=== PATIENT | female | born 1940 | race Caucasian/White ===

== ENCOUNTER → 2016-10-07 | Outpatient (CLI) | payer OTHER ==
[~2016-10-07] MED LIST: ASPEC81 PO; ATV5 PO; LEVO75TA PO; ONDA4TAB7 SL; SIMV20TA5 OR
--- NOTE | 2016-10-07 12:41 | MAMMOGRAPHY REPORT ---
BILATERAL DIGITAL SCREENING MAMMOGRAM WITH CAD: 10/07/2016 TECHNIQUE: Current study was also evaluated with a Computer Aided Detection (CAD) system. Bilatera l CC and MLO views were obtained. COMPARISON: Comparison is made to exams dated: 10/04/2015 mammogram, 10/03/2014 mammogram, 09/30/2013 ma mmogram, 09/27/2011 mammogram, and 09/28/2012 mammogram - [facility]. BREAST COMPOSITION: The tissue of both breasts is almost entirely fatty. FINDINGS: No suspicious masses, calcifications, or areas of architectural distortion are noted in e ither breast. There has been no significant interval change compared to prior exams. Asymmetry in t he left lateral anterior breast on the cc view is stable dating back to at least the 2007 exam, and considered benign given long-term stability. IMPRESSION: ACR BI-RADS CATEGORY 2: BENIGN There is no mammographic evidence of malignancy. A 1 year screening mammogram is recommended. The p atient will receive written notification of the results. Approximately 10% of breast cancers are not detected with mammography. A negative mammographic repor t should not delay biopsy if a clinically suggestive mass is present. Dolly Meraz M.D. ah/:10/07/2016 12:14:57 Delivery Analyst: Elsa ROUSE(R)(M), [facility] letter sent: Normal 1/2 BI-RADS Code: ACR BI-RADS Category 2: Benign
== END | disposition home or self-care (01) ==
LOC: C.MAMM 09:03
PROVIDERS: ATTEND Family Medicine
DX: Z12.31 Encounter for screening mammogram for malignant neoplasm of breast (principal)

== ENCOUNTER → 2017-10-08 | Outpatient (CLI) | payer OTHER ==
--- NOTE | 2017-10-08 15:22 | MAMMOGRAPHY REPORT ---
BILATERAL DIGITAL SCREENING MAMMOGRAM TOMOSYNTHESIS WITH CAD: 10/08/2017 CLINICAL HISTORY: Routine screening. Patient has no complaints. TECHNIQUE: Breast tomosynthesis in addition to standard 2D mammography was performed. Current study was also evaluated with a Computer Aided Detection (CAD) system. COMPARISON: Comparison is made to exams dated: 10/07/2016 mammogram, 10/04/2015 mammogram, 10/11/2014 u ltrasound, 10/11/2014 mammogram, 10/03/2014 mammogram, and 09/30/2013 mammogram - [facility]. BREAST COMPOSITION: The tissue of both breasts is almost entirely fatty. FINDINGS: No suspicious masses, calcifications, or areas of architectural distortion are noted in ei ther breast. There has been no significant interval change compared to prior exams. IMPRESSION: ACR BI-RADS CATEGORY 1: NEGATIVE There is no mammographic evidence of malignancy. A 1 year screening mammogram is recommended. The pa tient will receive written notification of the results. Approximately 10% of breast cancers are not detected with mammography. A negative mammographic report should not delay biopsy if a clinically suggestive mass is present. Dolly Meraz M.D. /:10/08/2017 09:13:02 Service Architect: Margarita ROUSE(Urvashi)(Faustino), [facility] letter sent: Normal 1/2 BI-RADS Code: ACR BI-RADS Category 1: Negative
== END | disposition home or self-care (01) ==
LOC: C.MAMM 08:53
PROVIDERS: ATTEND Family Medicine
DX: Z12.31 Encounter for screening mammogram for malignant neoplasm of breast (principal)

== ENCOUNTER 2018-03-17 10:21 | Inpatient (IN) | payer OTHER ==
[2018-02-12 15:33] VITALS: BMI 28.0
--- NOTE | 2018-02-17 09:03 | PAT Medication Instructions ---
Service Date Feb 17, 2018. Current Home Medication List Aspirin (Aspirin Ec), 81 MG PO QAM Cholecalciferol (Vitamin D3), 1 TAB PO QAM Fluticasone Propionate (Nasal) (Flonase Allergy Relief), 2 SPRAYS INTNAS PRN Levothyroxine Sodium (Levothyroxine Sodium), 1 TAB PO QAM Ondansetron Hcl (Zofran), 4 MG SL PRN PRN for Nausea Ranitidine (Zantac), 150 MG PO BID Simvastatin (Zocor), 20 MG PO HS [Hair Skin Nails], 1 TAB PO QAM Medication Instructions For Your Scheduled Surgery - Hold the following medications the morning of surgery: Cholecalciferol (Vitamin D3), 1 TAB PO QAM [Hair Skin Nails], 1 TAB PO QAM - Take the following medications the morning of surgery with a sip of water: Aspirin (Aspirin Ec), 81 MG PO QAM Fluticasone Propionate (Nasal) (Flonase Allergy Relief), 2 SPRAYS INTNAS PRN ( if needed) Levothyroxine Sodium (Levothyroxine Sodium), 1 TAB PO QAM Ondansetron Hcl (Zofran), 4 MG SL PRN PRN for Nausea (if needed) Ranitidine (Zantac), 150 MG PO BID - Take the following medications as scheduled the night before surgery: Fluticasone Propionate (Nasal) (Flonase Allergy Relief), 2 SPRAYS INTNAS PRN ( if needed) Ondansetron Hcl (Zofran), 4 MG SL PRN PRN for Nausea (if needed) Ranitidine (Zantac), 150 MG PO BID Simvastatin (Zocor), 20 MG PO HS If you have any questions please call us at [phone] or [phone] or [phone]
--- NOTE | 2018-02-17 09:58 | DIAGNOSTIC IMAGING REPORT ---
CHEST 2 VIEWS ROUTINE CLINICAL HISTORY: Preoperative evaluation. COMPARISON STUDY: No previous studies for comparison. FINDINGS: Lung volumes are normal. Note is made of moderate S-shaped scoliosis of the thoracolumbar spine. There are cholecystectomy clips. Mild cardiomegaly is noted without evidence for pulmonary edema. There is no consolidation to suggest pneumonia. IMPRESSION: No acute cardiopulmonary findings. Electronically signed by: Guilherme Burkett M.D. 02/17/2018 9:57 AM Dictated Date/Time: 02/17/2018 9:56 AM
[2018-02-17 10:21] LABS: BASO % 0.4 %; BASO ABS # 0.03 K/uL (0-0.2); EOS % 0.4 %; EOS ABS # 0.03 K/uL (0-0.5); HEMATOCRIT 41.3 % (37-47); HEMOGLOBIN 14.1 g/dL (12.0-16.0); IG# 0.01 K/uL (0.00-0.02); LYMPH % 20.5 %; LYMPH ABS # 1.44 K/uL (1.2-3.4); MEAN CELL VOLUME 86.4 fL (80-100); MEAN CORPUSCULAR HEMOGLOBIN 29.5 pg (25-34); MEAN CORPUSCULAR HGB CONC 34.1 g/dl (32-36); MEAN PLATELET VOLUME 8.7 fL (7.4-10.4); MONO % 6.1 %; MONO ABS # 0.43 K/uL (0.11-0.59); NEUT % 72.5 %; NEUT ABS # 5.08 K/uL (1.4-6.5); PLATELET COUNT 189 K/uL (130-400); RED CELL DISTRIBUTION WIDTH CV 14.2 % (11.5-14.5); RED CELL DISTRIBUTION WIDTH SD 44.4 fL (36.4-46.3); WHITE BLOOD COUNT 7.02 K/uL (4.8-10.8)
[2018-02-17 10:48] LABS: ALBUMIN 3.8 gm/dl (3.4-5.0); CALCIUM 8.6 mg/dl (8.5-10.1); CREATININE 0.73 mg/dl (0.60-1.20); POTASSIUM 5.1 mmol/L (3.5-5.1); TOTAL PROTEIN 6.8 gm/dl (6.4-8.2)
--- NOTE | 2018-03-03 11:44 | HISTORY & PHYSICAL EXAMINATION ---
DATE OF ADMISSION: 03/17/2018 CHIEF COMPLAINT: Left knee pain. HISTORY OF PRESENT ILLNESS: A 77-year-old white female who presents for surgical treatment of her left knee. She has a several year history of increasing left knee pain that has gotten significantly worse since this past winter. Pain is mostly on the medial side and increased with weightbearing. She does have a history of knee arthroscopy in the past. We did inject her knee which gave her about 3 days of relief and that is about it. She continues to be debilitated by this medial and anterior knee pain. She takes sulindac, which helps minimally. She would like to proceed with left knee replacement. PAST MEDICAL HISTORY: Significant for: 1. Hypothyroidism. 2. Elevated cholesterol. PREVIOUS SURGERIES: Include: 1. Cholecystectomy. 2. Hysterectomy. 3. Bunion repair. 4. Tonsillectomy. 5. Knee arthroscopy. ALLERGIES: UNSPECIFIED ANTIBIOTIC, WHICH CAUSED A RASH. No respiratory problems. Denies any penicillin allergy. MEDICATIONS: 1. Simvastatin 20 mg. 2. Levothyroxine 50 mcg a day. 3. Ondansetron 4 mg p.r.n. 4. Ranitidine 150 mg twice a day. 5. Fluticasone nasal spray. 6. Vitamin D3. 7. Multivitamin. 8. Aspirin. 9. Sulindac, which she says she quit a while ago. SOCIAL HISTORY: This is a 77-year-old female. She is . Rare alcohol intake. No tobacco or drug use. FAMILY HISTORY: Significant for diabetes and colon cancer. REVIEW OF SYSTEMS: Significant for hypothyroidism. Denies any chest pain or shortness of breath. No history of DVT or PE. No known bleeding problems. PHYSICAL EXAMINATION: GENERAL: Reveals a healthy pleasant elderly female. Looks to be in good health. HEENT: Benign. NECK: Supple. No lymphadenopathy. LUNGS: Clear to auscultation. HEART: Has a regular rate and rhythm. ABDOMEN: Soft, nontender, nondistended. EXTREMITIES: Grossly neurovascularly intact except as follows: Examination of the left knee reveals the patient walks with a slight bit of a limp. She has varus alignment to her knee. Some bony hypertrophy medially. Small knee effusion. Range of motion 5-125. There is no clinical instability. She is neurologically intact. No pain with hip motion. X-RAYS: X-rays of the left knee reviewed. She has advanced medial compartment arthritis. She has complete loss of her medial joint space. She has osteophytes of medial femoral condyle and medial tibial plateau. She does have patellofemoral disease as well. ASSESSMENT: A 77-year-old white female with advanced left knee degenerative joint disease after history of knee arthroscopy in the past. She has failed conservative treatment and would like to have her left knee replaced. PLAN: We will take her to the operating room and do a left knee replacement. The risks and benefits of this procedure explained to the patient including but not limited to DVT, PE, , infection, neurological injury, vascular injury, bleeding problem, pain, limited range of motion, stiffness, failure to relieve symptoms, incomplete relief of symptoms, need for further surgery in the future, fracture, leg length inequality, nerve palsy, etc. The patient understands and desires to proceed. Informed consent was obtained. She has already stopped her sulindac. She is hoping to be discharged to home with some [facility] in her 's assistance.
[2018-03-17] VITALS (9 sets, daily range): BP systolic 148–202; BP diastolic 66–107; PULSE 58–102; TEMP 36.2–36.8; O2SAT 96–100; Ht 167.6 cm; Wt 27.8 kg
[~2018-03-17] VITALS: Ht 167.6 cm; Wt 27.8 kg
[~2018-03-17 10:21] MED LIST changes: +ACETAMINOPHEN 500 MG TAB PO SCH; -ASPEC81 PO; +ASPI81TA28 PO; -ATV5 PO; +BUPIVACAINE 0.5 % 5 MG/1 ML PF 10ML VIAL ONE; +BUPIVACAINE LIPOSOME 266 MG, BUPIVACAINE/EPINEPHRINE INJ 50 ML, SODIUM CHLORIDE 0.9% PF... INFIL SCH; +CEFAZOLIN 2000MG IV PUSH 15 ML IV SCH; +CHOL1000 PO; +FAMOTIDINE 20 MG TAB PO SCH; +FLUT0.15 INTNAS; +GABAPENTIN 300 MG CAP PO SCH; +HAIR SKIN NAILS PO; +LACTATED RINGER'S 1000ML 1,000 ML IV SCH; +LACTATED RINGER'S 500 ML IV SCH; +LEVO50TA6 PO; -LEVO75TA PO; +METOCLOPRAMIDE HCL 10 MG TAB PO SCH; +ONDA4TAB46 SL; -ONDA4TAB7 SL; +RANI150T85 PO; +ROPIVACAINE 0.5% 5 MG/ML 30 ML VIAL ONE; -SIMV20TA5 OR; +SIMV20TA5 PO; +[UNRECOGNIZED DRUG - REMARK] SCH
--- NOTE | 2018-03-17 11:09 | History & Physical Bridge Note ---
H&P Re-Evaluation Bridge Note: I have examined the patient, reviewed the History & Physical and in the interval since the performance of the History & Physical I have noted the following changes of clinical significance: No changes noted
[2018-03-17] MEDS ORDERED: ATROPINE SULFATE 0.1 MG/ML 5ML SYR IV PRN (11:15)
[2018-03-17] MEDS ORDERED: PHENYLEPHRINE 100MCG/ML 5ML SYR IV PRN (11:15)
[2018-03-17] MEDS ORDERED: EpHEDrine SULFATE INJ 50 MG/ML AMP IV PRN (11:15)
[2018-03-17] MEDS ORDERED: KETOROLAC TROMETHAMINE 30 MG/ML VIAL IV. PRN (11:15)
[2018-03-17] MEDS ORDERED: HYDROmorphone INJ 2 MG/ML SYR/VIAL IV PRN (11:15)
[2018-03-17] MEDS ORDERED: ONDANSETRON INJ 2 MG/ML 2 ML VIAL IV PRN ×2 (11:15→15:00)
[2018-03-17] MEDS ORDERED: CEFAZOLIN SOD 2000MG/15 ML IV PUSH ONE (11:30)
[2018-03-17] MEDS ORDERED: BUPIVACAINE LIPOSOME 1/3% 266 MG/20 ML VIAL ONE (12:14)
[2018-03-17] MEDS ORDERED: SODIUM CHLORIDE 0.9% PF 50 ML VIAL ONE (12:14)
[2018-03-17] MEDS ORDERED: EpINEphrine INJ 1MG/ML AMP 1 MG/ML AMP ONE (12:14)
[2018-03-17] MEDS ORDERED: BUPIVACAINE 0.25% 30 ML VIAL ONE (12:14)
[2018-03-17] MEDS ORDERED: MIDAZOLAM HCL 1 MG/ML 2ML VIAL ONE (12:19)
[2018-03-17] MEDS ORDERED: LIDOCAINE HCL 2% 2 ML VIAL (20MG/ML) ONE (13:11)
[2018-03-17] MEDS ORDERED: PROPOFOL IV EMULSION 10 MG/ML 20 ML VIAL ONE ×2 (13:11→14:01)
[2018-03-17] MEDS ORDERED: NURSING VERBAL MED ORDER ONE (13:15)
[2018-03-17] MEDS ORDERED: TRANEXAMIC ACID INJ 1,000 MG x 1 Bag Intra-Op IV SCH ×2 (14:00)
--- NOTE | 2018-03-17 14:51 | [facility] Post Operative Brief Note ---
Immediate Operative Summary Operative Date Mar 17, 2018. Pre-Operative Diagnosis Advanced left knee degenerative joint disease Post-Operative Diagnosis Same Procedure(s) Performed Left Total Knee Arthroplasty Surgeon Dr. Link Carrizales Qc Analyst Surgeon(s) Evin Smallwood PA-C Estimated Blood Loss 50mL Findings Consistent with Post-Op Diagnosis Fluids (cc crystalloids) 1000 cc Specimens A. Left Knee Bone and Tissue Drains None Anesthesia Type MAC Spinal Regional Complication(s) none Disposition Accompanied Pt To Recover: no Disposition: Recovery Room / PACU Overlapping Procedure I was present for: the critical portions of procedure. I was immediately available: during the entire case
[2018-03-17] MEDS ORDERED: BISACODYL 10 MG SUPP PR PRN (15:00)
[2018-03-17] MEDS ORDERED: HYDROmorphone INJ 0.5 MG/0.5 ML SYR IV PRN (15:00)
[2018-03-17] MEDS ORDERED: MAGNESIUM HYDROXIDE SUSP 30 ML UDC PO PRN (15:00)
[2018-03-17] MEDS ORDERED: TRAMADOL HCL 50 MG TAB PO PRN (15:00)
[2018-03-17] MEDS ORDERED: METOCLOPRAMIDE HCL INJ 5 MG/ML 2 ML VIAL IV PRN (15:00)
[2018-03-17] MEDS ORDERED: ONDANSETRON 4 MG TAB PO PRN (15:00)
[2018-03-17] MEDS ORDERED: ALUMINUM/MAGNESIUM/SIMETH (MAALOX MAX) 30 ML UDC PO PRN (15:00)
[2018-03-17] MEDS ORDERED: CEFAZOLIN IV 1,000 MG in DEXTROSE 5% 50ML 50 ML IV SCH (15:00)
--- NOTE | 2018-03-17 15:17 | DIAGNOSTIC IMAGING REPORT ---
L KNEE 1 OR 2 VIEWS ROUTINE CLINICAL HISTORY: AP/LATERAL IN PACU LEFT KNEE trauma placement COMPARISON: None. DISCUSSION: Total left knee arthroplasty. Good contact between prosthetic and underlying bone. Surgical drains are in position. Expected postoperative soft tissue change. IMPRESSION: Anatomic alignment posttotal left knee arthroplasty. The above report was generated using voice recognition software. It may contain grammatical, syntax or spelling errors. Electronically signed by: Dc Romero M.D. 03/17/2018 3:15 PM Dictated Date/Time: 03/17/2018 3:15 PM
--- NOTE | 2018-03-17 15:20 | Anesthesiology Progress Note ---
Anesthesia Post Op Note Date & Time Mar 17, 2018 at 15:20 Vital Signs Pain Intensity: 0 Vital Signs Past 12 Hours Date Time Temp Pulse Resp B/P (MAP) Pulse Ox O2 Delivery O2 Flow Rate FiO2 03/17/18 15:11 152/67 03/17/18 15:09 59 18 100 03/17/18 15:09 61 18 03/17/18 15:06 135/78 03/17/18 15:04 68 19 03/17/18 15:04 73 19 100 03/17/18 15:02 141/71 03/17/18 15:00 126/69 03/17/18 14:59 67 19 100 03/17/18 14:59 36.2 65 16 126/69 (98) 100 Oxymask 10 03/17/18 14:59 69 19 03/17/18 11:22 36.8 102 20 202/107 96 Room Air Notes Mental Status: alert / awake / arousable, participated in evaluation Pt Amnestic to Procedure: Yes Nausea / Vomiting: adequately controlled Pain: adequately controlled Airway Patency, RR, SpO2: stable & adequate BP & HR: stable & adequate Hydration State: stable & adequate Anesthetic Complications: no major complications apparent
[2018-03-17] MEDS: D5W AND 1/2NSS + 20MEQ KCL 1,000 ML IV SCH (17:25)
[2018-03-17] MEDS: FERROUS GLUCONATE 324 MG TAB PO SCH (17:26)
[2018-03-17] MEDS: KETOROLAC TROMETHAMINE 15 MG/ML VIAL IV. SCH ×2 (17:27→23:41)
--- NOTE | 2018-03-17 19:49 | OPERATIVE REPORT ---
DATE OF OPERATION: 03/17/2018 SURGEON: Link Carrizales MD SPEECH/LANGUAGE THERAPIST: GORDO Myles PREOPERATIVE DIAGNOSIS: Left knee degenerative joint disease. POSTOPERATIVE DIAGNOSIS: Left knee degenerative joint disease. PROCEDURE PERFORMED: Left cemented posterior stabilized total knee arthroplasty. COMPLICATIONS: None. ESTIMATED BLOOD LOSS: 50 mL FLUID REPLACEMENT: 1000 mL crystalloid fluid replacement. TOURNIQUET TIME: 65 minutes at 300 mmHg. ANESTHESIA: Spinal with adductor canal block. DRAINS: None. SPECIMENS: Left knee sent for pathology. OPERATIVE INDICATIONS: Patient is a 77-year-old white female who has had a several-year history of increasing left knee pain and discomfort, unresponsive to conservative treatment. X-rays revealed advanced DJD. She elected to proceed with operative treatment. OPERATIVE FINDINGS: Operative findings were advanced left knee DJD. She had grade 4 [id number] disease of the medial and patellofemoral compartments. She has some focal grade 4 changes laterally. She had a moderate sized joint effusion. She had a fixed varus deformity to her knee. OPERATIVE IMPLANTS: Operative implants consisted of: 1. Biomet Vanguard size 67.5 left posterior stabilized femoral component. 2. Biomet size 67 tibial tray. 3. A 10 mm posterior stabilized polyethylene insert. 4. A 31 x 8 all poly patella. OPERATIVE PROCEDURE: Patient taken to the operating room, identified, and placed on the operating table in supine position. All contact areas were appropriately padded. IV antibiotics were provided by anesthesia team. A spinal anesthetic and adductor canal block provided in the holding area. Joseph catheter was placed in sterile fashion. Left thigh tourniquet was then placed and the left lower extremity was then prepped and draped in usual sterile fashion. Left leg was elevated and exsanguinated with an Esmarch and tourniquet was placed at 300 mmHg. An anterior approach to the left knee was then performed through a longitudinal incision centered over the patella. Sharp dissection was carried through the subcutaneous tissues down to the level of the extensor mechanism. A medial parapatellar arthrotomy incision was made. Some subperiosteal dissection was carried out medially. The fat pad resected from beneath the patellar tendon. The lateral patellofemoral ligament was released. Patella was everted, and the knee was flexed. The osteophytes were taken off the distal femur. The ACL and PCL were then released from the distal femur and the tibia subluxated anteriorly. The external tibial alignment jig was then placed in the anterior face of the tibia and adjusted 14 mm medially. Proximal tibial cut was made to remove about 2 mm of bone, bone from the most deficient aspect of the medial tibial plateau. Some osteophytes were taken off medial and posteromedially. Tibia size was size 67. Attention was then drawn to the femur. The distal femur was entered with a sharp drill. Intramedullary canal was suctioned. A left 5-degree valgus cutting guide was placed. Distal femoral cutting block was pinned in place. Distal femoral cut was made to take an additional 3 mm of bone off the distal femur. The femur was then sized to a size 67-1/2. The AP cutting block was pinned parallel to the epicondylar axis, which was 4 degrees of external rotation. The anterior cut, anterior chamfer cut, posterior cut, posterior chamfer cuts were made. Box cutting guide was placed and adjusted slight lateral and box cut was made. The knee was flexed. The remnants of the medial and lateral menisci were excised. The osteophytes were taken off the posterior aspect of the femur. Trial femoral component was placed. Tibial tray was pinned in maximum external rotation and the drill and stem punch were used to create defect in proximal tibia for the tibial tray. The knee was then trialed and a 10 mm insert fit most appropriately. Attention was then drawn to patella. Patella was cleaned of all soft tissues. Patella thickness measured 18 mm, cut down to 12. It was sized to a size 31 patella. Lug holes were drilled for a 31 patella. Lateral osteophytes removed. Patella button was placed. Knee was taken through range of motion and patella tracked nicely with no thumbs test. Attention was then drawn toward placing the permanent components. All trial components were removed. Bone plug was placed in the distal femur to limit blood loss. A double batch of Palacos G cement was mixed. A left size 67.5 posterior stabilized femoral component, size 67 tibial tray, 10 mm posterior stabilized polyethylene insert, and a 31 x 8 all poly patella then cemented in place. Knee was brought out in full extension until the cement hardened. A final cement check was then performed. Pericapsular tissues were injected with a total of 100 mL combination of 20 mL of Exparel, 30 mL of normal saline, 50 mL of 0.25% Marcaine with epinephrine. Patient did receive 1 gram of tranexamic acid. The tourniquet was then let down for final tourniquet time of 65 minutes. Hemostasis was assured with use of electrocautery. The extensor mechanism was then closed with a combination of #1 PDS suture and #1 Vicryl suture in a cyguca-rl-lvyht fashion. The extensor mechanism was checked and found to be intact. The subcutaneous tissue was then closed with #2 Dexon suture in buried interrupted fashion. Skin was closed with skin valentina. Leg was then cleaned and dried and a sterile dressing of Xeroform, 4 x 4's, sterile cast padding and Dereck bandage were applied. The patient then transferred to the recovery room in stable condition. The patient tolerated the procedure well with no complications. All needle and sponge counts were correct at the end of the operation. Note: Upon mixing the first batch of cement, the machine joiner cementer did not work, so we did spend an additional 10 minutes getting an additional machine joiner cementer and a new cement and re-mixing the cement which added 10 minutes on to the tourniquet time. I attest to the content of the Intraoperative Record and any orders documented therein. Any exceptions are noted below. RAVEN
[2018-03-17] MEDS: RANITIDINE HCL 150 MG TAB PO SCH (20:44)
[2018-03-17] MEDS: ASPIRIN 81 MG ECTAB PO SCH (20:45)
[2018-03-17] MEDS: SENNA 8.6 MG TAB PO SCH (20:45)
[2018-03-17] MEDS: DOCUSATE SODIUM 100 MG CAP PO SCH (20:45)
[2018-03-17] MEDS: SIMVASTATIN 20 MG TAB PO SCH (20:45)
[2018-03-17] MEDS: CEFAZOLIN IV 1,000 MG in SYRINGE 0 ML IV SCH (20:51)
[2018-03-17] MEDS ORDERED: TRANEXAMIC ACID INJ 1,000 MG in SODIUM CHLORIDE 0.9% 100ML 100 ML IV ONE (21:00)
[2018-03-17] MEDS: ACETAMINOPHEN 500 MG TAB PO SCH (21:37)
[2018-03-17] MEDS: ZOLPIDEM TARTRATE 5 MG TAB PO PRN (21:37)
[2018-03-18] VITALS (9 sets, daily range): BP systolic 145–191; BP diastolic 73–93; PULSE 71–87; TEMP 36.5–37; O2SAT 95–99
[2018-03-18] MEDS: D5W AND 1/2NSS + 20MEQ KCL 1,000 ML IV SCH ×2 (03:41→12:08)
[2018-03-18] MEDS: CEFAZOLIN IV 1,000 MG in SYRINGE 0 ML IV SCH (05:50)
[2018-03-18] MEDS: KETOROLAC TROMETHAMINE 15 MG/ML VIAL IV. SCH ×4 (05:51→23:49)
[2018-03-18] MEDS: ACETAMINOPHEN 500 MG TAB PO SCH ×3 (05:52→21:40)
[2018-03-18] MEDS: LEVOTHYROXINE 50 MCG TAB PO SCH (05:52)
[2018-03-18 07:01] LABS: HEMATOCRIT 33.9 % (37-47); HEMOGLOBIN 11.2 g/dL (12.0-16.0); MEAN CELL VOLUME 86.9 fL (80-100); MEAN CORPUSCULAR HEMOGLOBIN 28.7 pg (25-34); MEAN PLATELET VOLUME 9.2 fL (7.4-10.4); PLATELET COUNT 171 K/uL (130-400); RED CELL DISTRIBUTION WIDTH CV 13.8 % (11.5-14.5); RED CELL DISTRIBUTION WIDTH SD 43.7 fL (36.4-46.3); WHITE BLOOD COUNT 7.21 K/uL (4.8-10.8)
[2018-03-18 07:27] LABS: CREATININE 0.62 mg/dl (0.60-1.20); POTASSIUM 3.9 mmol/L (3.5-5.1)
--- NOTE | 2018-03-18 08:17 | PROGRESS NOTE ---
DATE: 03/18/2018 SUBJECTIVE: A 77-year-old white female postop day 1 from left knee replacement. Really not having any pain at all this morning. No chest pain or shortness of breath. Not feeling dizzy or lightheaded. OBJECTIVE: VITAL SIGNS: Temperature is 36.5. Vital signs stable. Some mild hypertension. GENERAL: Physical examination reveals a pleasant elderly female. She is sitting up in bed, looks quite comfortable. LUNGS: Clear to auscultation. HEART: Has regular rate and rhythm. ABDOMEN: Soft, nontender, nondistended. EXTREMITIES: Grossly neurovascularly intact except as follows: Examination of the left lower extremity reveals the dressing to be clean, dry and intact. She can dorsiflex and plantarflex her foot appropriately. She is neurologically intact. LABORATORY DATA: Hemoglobin 11.2. Hematocrit 33.9. Electrolytes are pending. ASSESSMENT: A 77-year-old white female postop day 1 from left knee replacement, doing well. Pain is controlled. She is neurologically intact. PLAN: 1. DVT prophylaxis including thigh-high TEDs, SCDs, and aspirin twice a day. 2. PT/OT. Weight bear as tolerated. Left total knee protocol. 3. Pain control. Doing well with current pain regimen. Really not having much pain at all now. 4. Disposition: She is going to be discharged to home with some home health once adequately recovered.
[2018-03-18] MEDS: PANTOprazole SOD 40 MG TAB PO SCH (08:38)
[2018-03-18] MEDS: CHOLECALCIFEROL 400 INTER.UNIT TAB PO SCH (08:38)
[2018-03-18] MEDS: DOCUSATE SODIUM 100 MG CAP PO SCH ×2 (08:38→21:40)
[2018-03-18] MEDS: FERROUS GLUCONATE 324 MG TAB PO SCH ×3 (08:38→17:58)
[2018-03-18] MEDS: MULTIVITAMIN TAB PO SCH (08:38)
[2018-03-18] MEDS: RANITIDINE HCL 150 MG TAB PO SCH ×2 (08:39→21:40)
[2018-03-18] MEDS: ASPIRIN 81 MG ECTAB PO SCH ×2 (08:39→21:40)
[2018-03-18] MEDS ORDERED: ASPI-461 PO (18:08)
[2018-03-18] MEDS ORDERED: ULT50X PO (18:08)
[2018-03-18] MEDS ORDERED: ACET-24 PO (18:08)
--- NOTE | 2018-03-18 18:10 | Discharge Instructions ---
Discharge Instructions Date of Service Mar 18, 2018. Admission Reason for Admission: Left Knee Degenerative Joint Disease Discharge Discharge Diagnosis / Problem: Left Knee Replacement Discharge Goals Goal(s): Decrease discomfort, Improve function, Increase independence, Improve disease control, Therapeutic intervention Activity Recommendations Activity Limitations: per Instructions/Follow-up section Weightbearing Status: Left weightbearing . Instructions / Follow-Up Instructions / Follow-Up ACTIVITY RECOMMENDATIONS: Physical Therapy: * You will go to physical therapy three times each week for four to six weeks after your surgery in order to regain your knee range of motion and to retrain your knee to work properly. * It is just as important to make sure you are getting your knee perfectly straight as it is to regain your knee bend. * Taking a pain pill an hour before therapy can help you have a more productive and comfortable therapy session. Home Exercise: * You were shown a series of exercises (heel props, heel slides, etc.) in the hospital. Do these exercises three to four times each day including the exercises you were shown in physical therapy. Walking: * Get up and walk several times each day. For the first four weeks, try not to stand or walk for more than one hour at a time. If you do stand or walk for more than one hour, you will not hurt anything, but your knee and leg will likely swell. * As you feel comfortable, you may change from the walker or crutches to a cane and then to independent walking. MEDICATIONS: New Medicine: * You will likely be taking one or more of these medications: 1. Tramadol - A quick and shorter-acting pain medication. Take one to two tablets every four to six hours to lessen your pain. 2. Aspirin - Thins your blood to lessen the chance of forming a blood clot. * The most common side effects of pain medicine and iron are nausea and constipation. If nausea or constipation is too much of a problem or if you have any questions about your new medicines or doses, call [facility] at . We will try to help you manage these issues. VERY IMPORTANT TO READ AND REVIEW" Pain: * The immediate post-operative period after knee replacement surgery is often quite painful. * You are given a prescription for pain medicine. You should take it, as directed, when you need it, especially before physical therapy and before going to bed. Pain that interferes with sleep is very common and can last several months. * You will likely need pain medicine for the first four to six weeks. It will not stop all of the pain. The pain will lessen and as you feel better, you may change to milder pain medicine such as Tylenol. * The most common side effects of pain medicine are nausea and constipation, so don't take more than you need. SPECIAL CARE INSTRUCTIONS: TEDs/Elastic Stockings: * The white elastic stockings help limit swelling and prevent blood clots from forming in your legs. The more you wear them, the more they work. * Wear them for six weeks after knee replacement surgery and four weeks after partial knee replacement. Prevention of Infection: * Take antibiotics one hour before any dental cleaning, dental work, urological procedure, gastrointestinal procedure or any invasive surgery in order to prevent your new joint from getting infected. * You may get the antibiotics from the doctor performing the procedure or you may call our office at before and we will call in a prescription to the pharmacy of your choice. Things to Watch For: * Drainage from the incision site that occurs more than one week after your surgery. * Severely increased knee/leg pain or swelling. * Increased redness at the incision site. * Fever above 102 degrees Fahrenheit. * Unusual chest pain or shortness of breath. * Unusual pain or burning with urination. Call [facility] at with any of the above problems or if you have any questions about your medicines or recovery. FOLLOW UP VISIT: Make an appointment to see your doctor for approximately two weeks after surgery for a progress check and staple removal by calling the office at . Current Hospital Diet Patient's current hospital diet: Regular Diet Discharge Diet Recommended Diet: Regular Diet Procedures Procedures Performed: Left Total Knee Arthroplasty Pending Studies Studies pending at discharge: no Medical Emergencies . Who to Call and When: Medical Emergencies: If at any time you feel your situation is an emergency, please call [phone] immediately. . Non-Emergent Contact Non-Emergency issues call your: Surgeon . "Provider Documentation" section prepared by Link Carrizales. .
[2018-03-18] MEDS: SIMVASTATIN 20 MG TAB PO SCH (21:40)
[2018-03-18] MEDS: ZOLPIDEM TARTRATE 5 MG TAB PO PRN (21:41)
[2018-03-18] MEDS: SENNA 8.6 MG TAB PO SCH (21:42)
[2018-03-19] MEDS: ACETAMINOPHEN 500 MG TAB PO SCH (05:42)
[2018-03-19] MEDS: KETOROLAC TROMETHAMINE 15 MG/ML VIAL IV. SCH ×2 (05:42→11:34)
[2018-03-19] MEDS: LEVOTHYROXINE 50 MCG TAB PO SCH (05:42)
[2018-03-19 06:11] VITALS: BP 150/81; PULSE 81; TEMP 36.8; O2SAT 95
[2018-03-19] MEDS: MULTIVITAMIN TAB PO SCH (07:55)
[2018-03-19] MEDS: RANITIDINE HCL 150 MG TAB PO SCH (07:55)
[2018-03-19] MEDS: CHOLECALCIFEROL 400 INTER.UNIT TAB PO SCH (07:55)
[2018-03-19] MEDS: FERROUS GLUCONATE 324 MG TAB PO SCH (07:55)
[2018-03-19] MEDS: DOCUSATE SODIUM 100 MG CAP PO SCH (07:55)
[2018-03-19] MEDS: PANTOprazole SOD 40 MG TAB PO SCH (07:55)
[2018-03-19] MEDS: ASPIRIN 81 MG ECTAB PO SCH (08:05)
[2018-03-19] MEDS ORDERED: HYDROCHLOROTHIAZIDE 25 MG TAB PO STA (09:32)
[2018-03-19] MEDS ORDERED: HYDR12.56 PO (09:39)
[2018-03-19 09:47] VITALS: BP 143/82; PULSE 74
[2018-03-19 09:54] VITALS: TEMP 36.8
--- NOTE | 2018-03-19 10:30 | PROGRESS NOTE ---
DATE: 03/19/2018 SUBJECTIVE: A 77-year-old female status post total knee arthroplasty postop day #2. She is doing pretty well. Really not having much pain. No chest pain, no shortness of breath. Not feeling dizzy or lightheaded. OBJECTIVE: VITAL SIGNS: Temperature is 36.8. Stable. Some mild hypertension. EXTREMITIES: Examination of the left leg reveals the incision to be clean, dry, and intact. Some mild swelling. Calf is soft and supple. CENTRAL NERVOUS SYSTEM: She is neurologically intact. ASSESSMENT: A 77-year-old white female postop day 2 from a left knee replacement, doing well. Pain is controlled. She is neurologically intact. PLAN: 1. DVT prophylaxis including thigh-high TEDs, SCDs, and aspirin twice a day. 2. PT/OT. Weightbear as tolerated. Left total knee protocol. 3. Pain control and doing well with current pain regimen. 4. Disposition: Plan is to discharge to home with some home health after therapy.
[2018-03-19 11:05] VITALS: BP 161/83; PULSE 79; O2SAT 98
--- NOTE | 2018-03-19 12:31 | Progress Note ---
Progress Note Date of Service Mar 19, 2018. Progress Note ATTENDING ADDENDUM: 77-year-old febrile status post knee surgery Found to be hypertensive. Chest Does not have any prior diagnosis of hypertension Patient's pain appears to be adequately controlled, comfortable , denies of any anxiety Repeat blood pressure systolic remains markedly elevated to 170 No complaint of chest pain, shortness of breath dyspnea on exertion orthopnea Started on low-dose HCTZ 12.5 mg p.o. daily Outpatient follow-up with family physician for blood pressure monitoring and medication dose adjustments if needed Anna Jacobs MD
--- NOTE | 2018-03-19 13:36 | Medical Consult ---
Consultation Date of Consultation: Mar 19, 2018. Attending Physician: Link Carrizales M.D. Reason for Consultation: Hypertension History of Present Illness 77-year-old female who is postop day 2 left total knee arthroplasty by Dr. Carrizales. Postoperatively the patient is doing well. She reports her pain is well controlled. She is eager to go home. She denies chest pain shortness of breath. No headache or blurred vision. She denies lightheadedness, dizziness, diaphoresis, syncopal events. No fevers or chills. She denies any urinary symptoms. Patient has been having intermittently elevated blood pressures as high as the 190s systolically. We are consulted for hypertension management. Past Medical/Surgical History Medical Problems: (1) Dyslipidemia Status: Chronic (2) GERD (gastroesophageal reflux disease) Status: Chronic (3) Hypothyroidism Status: Chronic (4) Osteoarthritis Status: Chronic Surgical Problems: (1) History of arthroscopic knee surgery Status: Chronic (2) History of tonsillectomy and adenoidectomy Status: Chronic (3) S/P bunionectomy Status: Chronic (4) S/P CARLITO-BSO Status: Chronic Family History FH: CHF (congestive heart failure) FATHER MOTHER Social History Smoking Status: Former Smoker Alcohol Use: occasionally Marital Status: Housing Status: lives with family Allergies Coded Allergies: Amoxicillin (Unverified Allergy, Unknown, UNKNOWN, 03/17/18) Bacitracin (Unverified Allergy, Unknown, RASH, 03/17/18) Neomycin (Unverified Allergy, Unknown, RASH, 03/17/18) Polymyxin B (Unverified Allergy, Unknown, RASH, 03/17/18) Sulfamethoxazole w/Trimethoprim (Verified Allergy, Unknown, rash, 03/17/18) Home Medications [Hair Skin Nails] 1 Tab PO QAM Vitamin D3 (Cholecalciferol) 1,000 Unit Tab 1 Tab PO QAM 90 Days Zantac (Ranitidine HCl) 150 Mg Tab 150 Mg PO BID Zofran (Ondansetron HCl) 4 Mg Tab 4 Mg SL PRN PRN Levothyroxine Sodium 50 Mcg Tab 1 Tab PO QAM 90 Days Zocor (Simvastatin) 20 Mg Tab 20 Mg PO HS Review of Systems ROS per HPI, all other systems reviewed and negative Physical Exam Date Time Temp Pulse Resp B/P (MAP) Pulse Ox O2 Delivery O2 Flow Rate FiO2 03/19/18 11:05 79 17 161/83 (109) 98 03/19/18 09:54 36.8 74 16 95 Room Air 03/19/18 09:47 74 143/82 (102) 03/19/18 06:58 Room Air 03/19/18 06:11 36.8 81 16 150/81 (104) 95 Room Air 03/18/18 23:35 Room Air 03/18/18 23:01 171/82 (111) 03/18/18 23:00 37.0 87 14 191/93 (125) 98 Room Air 03/18/18 21:38 71 184/82 (116) 03/18/18 15:15 Room Air 03/18/18 14:54 36.8 76 16 164/83 (110) 98 Room Air General Appearance: WD/WN, no apparent distress Head: normocephalic, atraumatic Eyes: normal inspection, EOMI, sclerae normal ENT: hearing grossly normal, + pertinent finding (Mucous membranes moist) Neck: supple, no JVD, trachea midline Respiratory/Chest: lungs clear, normal breath sounds, no respiratory distress Cardiovascular: regular rate, rhythm, no edema, normal peripheral pulses Abdomen/GI: normal bowel sounds, non tender, soft, no organomegaly Extremities/Musculoskelatal: + pertinent finding (S/P left knee surgery, dressing dry and intact, CSM checks intact to left lower extremity) Neurologic/Psych: no motor/sensory deficits, alert, normal mood/affect, oriented x 3 Skin: normal color, warm/dry Assessment & Plan 77-year-old female who is postop day 2 left total knee arthroplasty by Dr. Carrizales. We are consulted for evaluation of hypertension. Patient has no history of hypertension in the past and is currently not taking any antihypertensives. Patient appears to be 2 L positive on I's and O's. I suspect that her elevated blood pressure is secondary to increased volume status. Patient denies chest pain and shortness of breath. No headache or blurred vision. Patient will be started on low-dose hydrochlorothiazide 12.5 mg daily. Prescription was sent to her pharmacy. I also made a follow-up appointment for the patient next week to see her primary care provider for a repeat blood pressure check. Patient okay for discharge to home. She was instructed to call her primary care provider or be evaluated in the ED if she develops chest pain, shortness of breath, headache, blurred vision, or signs of stroke. ATTENDING ADDENDUM: 77-year-old febrile status post knee surgery Found to be hypertensive. Chest Does not have any prior diagnosis of hypertension Patient's pain appears to be adequately controlled, comfortable , denies of any anxiety Repeat blood pressure systolic remains markedly elevated to 170 No complaint of chest pain, shortness of breath dyspnea on exertion orthopnea Started on low-dose HCTZ 12.5 mg p.o. daily Outpatient follow-up with family physician for blood pressure monitoring and medication dose adjustments if needed Anna Jacobs MD
== END 2018-03-19 12:38 | disposition home health service (06) | DRG 470 ==
LOC: C.ACU 10:21 → C.3E 11:31 → ENRESERV 15:16
PROVIDERS: ADMIT Orthopaedic Surgery Sports Medicine; ATTEND Orthopaedic Surgery Sports Medicine
PROC: 0SRD0J9 Replacement of Left Knee Joint with Synthetic Substitute, Cemented, Open Approach (ICD-10-PCS; principal; 2018-03-17 13:00)
DX: M17.12 Unilateral primary osteoarthritis, left knee (principal); R03.0 Elevated blood-pressure reading, without diagnosis of hypertension; E03.9 Hypothyroidism, unspecified; E78.00 Pure hypercholesterolemia, unspecified; Z79.899 Other long term (current) drug therapy; Z79.82 Long term (current) use of aspirin

== ENCOUNTER 2023-05-09 11:04 | Inpatient (IN) ==
[2023-05-09] MEDS ORDERED: SODIUM CHLORIDE 0.9% 500 ML IV STA (11:27)
--- NOTE | 2023-05-09 11:33 | Emergency Department Note ---
Impression & Plan Acute pericardial effusion, Pacemaker complications, Precordial chest pain, Elevated troponin, Anemia ED Provider Note NAME: ALESSANDRA BLANDON AGE: 82 SEX: F : 1940 ARRIVES VIA: Ambulance INFORMANT: [Patient] ED PROVIDER(S): [Nomi Lloyd MD] CHIEF COMPLAINT: Cardiac assessment HISTORY OF PRESENT ILLNESS: Patient is an 82-year-old female who states that she had a pacemaker placed 2 days ago. Yesterday, she began having some mid to lower sternal chest pain that seemed to move into the back. Patient has had back issues before and felt that it may just be her back acting up but because of the pacer placement, she spoke with her doctors office. She was referred to the ER. The patient states that in addition, she started with some nonbloody, nonblack diarrhea this morning. She is going to the bathroom frequently. She has felt a bit lightheaded and sometimes short of breath. The patient states that she has a history of chronic diarrhea and sometimes, she just has flareups. There has been no fever, no cough or congestion. Taking a breath does seem to make the chest pain worse at times. PMHx/PSHx: See Below SOCIAL HISTORY: See Below. PHYSICAL EXAM: GENERAL: Patient is in no acute distress. HEENT: No acute trauma, normocephalic atraumatic, mucous membranes moist, no marybeth al congestion. NECK: No stridor, no adenopathy, no meningismus, trachea is midline. LUNGS: A few scattered crackles heard, no wheezing or rhonchi, no respiratory distress. Chest: Tender to the mid to lower sternal chest wall. HEART: Without murmurs gallops or rubs, regular rate and rhythm. ABDOMEN: Soft, nontender, bowel sounds positive, no peritonitis. EXTREMITIES: No cyanosis or edema, full range of motion of all the joints without pain or difficulty, no signs for acute trauma. NEUROLOGIC: Oriented x 3, no acute motor or sensory deficits, no focal weakness. SKIN: No rash, no jaundice, no diaphoresis. Back: Nontender thoracic spine. DIFFERENTIAL DIAGNOSIS: Aortic dissection, musculoskeletal pain, pneumonia, pneumothorax, dehydration, electrolyte imbalance, anemia, among others. EMERGENCY DEPARTMENT COURSE/PROCEDURES: Prior/Outside records reviewed: EMS notes. ECG per my interpretation: Indication was chest pain. The ECG shows a normal sinus rhythm with a rate of 79. There is no ST elevation, no PVCs. The QTc is 438. Continuous Cardiac Monitoring per my interpretation: An order was placed for continuous cardiac monitoring. The monitor shows a rate of 87 with normal sinus rhythm. Critical Care Note: I have personally spent 48 minutes of critical care time in the direct management of this patient. This includes bedside care, interp retation of diagnostic studies, and testing, discussion with consultants, patient, and family members, and other required patient management activities. This 48 minutes is in excess of all separately billable procedures. MEDICAL DECISION MAKING: There is no leukocytosis. The patient does have a mild anemia. This is a slight drop for her when looking back at previous testing. There is a normal platelet count. No concerning coagulopathy. Creatinine was elevated at 1.33. The creatinine value is above her typical baseline and may be consistent with some mild acute kidney injury/dehydration. No electrolyte abnormality in need of emergent correction. No worrisome liver enzyme elevation. No evidence for pancreatitis. Cardiac troponin was elevated consistent with potential cardiac injury. Chest x-ray did not show mediastinal widening, pneumonia or pneu mothorax per my review. ECG showed a normal sinus rhythm, no ischemia or dysrhythmia. Chest CT did not show evidence for any aortic injury, a pericardial effusion was seen with presumed myocardial rupture secondary to pacemaker lead placement. On exam, the patient was initially very mildly hypote nsive. She seemed otherwise quite stable. Patient received IV saline, 500 cc. She did not require anything for pain. I did consult cardiology, Dr. White. I did consult Dr. Perez who had plac ed the pacemaker. An echo was done which did show some cardiac tamponade as well as an extracardiac pacemaker lead. The patient was taken to the cardiac catheterization laboratory for pericardial drainage and replacement of the pacemaker lead. She is to be hospitalized. I spoke with the patient about her findings, I spoke with case management, the on-call hospitalist was consulted. DISPOSITION: Patient's presentation and findings clearly warrant a hospital stay. Past Med/Surg History Medical History Colitis HX GERD (gastroesophageal reflux disease) Hyperlipidemia Hypertension HX OF Hypothyroidism Osteoarthritis Temporomandibular joint disorder Urinary frequency DURING NIGHT TIME Vertigo Surgical History History of adenoidectomy History of arthroscopy KNEE History of breast biopsy History of cholecystectomy History of colonoscopy History of hysterectomy History of left knee replacement History of tonsillectomy History of tooth extraction History of total knee replacement LEFT Family History Grandfather (Paternal) Family history of diabetes mellitus Father Family hx colonic polyps Social History Smoking Status: Never smoker Second Hand Exposure: No; Do You Dip or Chew Tobacco: No; Tobacco Cessation Education Requested by Patient: No Hx Alcohol Use: Yes Alcohol type: wine Hx Substance Use: No Preferred Language: Malian Communication Ability: Effective Plaster Maker Required: No Beliefs That Will Affect Care: Spiritual Current Living Situation: Spouse Other Information That Helps Us Care for You: No Feels Safe at Home: Yes Safety Concerns: Feels Safe At This Time Assistive Devices: Glasses Allergies Allergies Allergy/AdvReac Type Severity Reaction Status Date / Time amoxicillin Allergy Mild Rash Verified 05/07/23 11:33 bacitracin Allergy Mild RASH Verified 05/07/23 11:33 neomycin Allergy Mild RASH Verified 05/07/23 11:33 polymyxin B Allergy Mild RASH Verified 05/07/23 11:33 sulfamethoxazole Allergy Mild rash Verified 05/07/23 11:33 trimethoprim Allergy Mild rash Verified 05/07/23 11:33 Bactrim Allergy Unknown rash Verified 03/17/18 10:42 aspirin [From Aggrenox] Allergy Unknown Verified 05/07/23 11:33 dipyridamole [From Aggrenox] Allergy Unknown Verified 05/07/23 11:33 cyclobenzaprine AdvReac Severe sedation Verified 05/07/23 11:33 [From Flexeril] Home Meds Home Medications Medication Instructions Recorded Confirmed cholecalciferol (vitamin D3) 25 1,000 unit PO DAILY 11/16/18 05/07/23 mcg (1,000 unit) capsule (Vitamin D3) levothyroxine 50 mcg tablet See Rx Instructions .Route .COMPLEX 11/16/18 05/07/23 ondansetron 4 mg disintegrating 4 mg PO Q8 PRN Nausea 11/16/18 05/07/23 tablet simvastatin 20 mg tablet 20 mg PO HS 11/16/18 05/07/23 Lactobacillus acidophilus 10 10,000 mmu cells PO DAILY 10/04/21 05/07/23 billion cell capsule (Probiotic) apixaban 5 mg tablet (Eliquis) 5 mg PO BID 10/04/21 05/07/23 lisinopril 10 1 tab PO DAILY 10/04/21 05/07/23 mg-hydrochlorothiazide 12.5 mg tablet multivitamin 1 tab PO DAILY 10/04/21 05/07/23 Results & Data (ED) Vital Signs Vital Signs - 24 hr 05/09/23 11:11 05/09/23 11:11 05/09/23 11:38 Temperature 36.5 C Temperature Source Oral Pulse Rate 87 Pulse Rate [Apical] Pulse Rate from SpO2 Sensor Respiratory Rate 20 Respiratory Effort / Characteristics Non-Labored Non-Labored Respiratory Depth Normal Normal Blood Pressure 98/74 L Blood Pressure Mean 82 Pulse Oximetry 99 98 Oxygen Delivery Method Room Air Room Air Sepsis Recent Fever Within 48 Hours No Sepsis New/Unexplained Change in Mental Status No Sepsis Action Taken by Nursing No Action Required 05/09/23 11:38 05/09/23 11:38 05/09/23 12:01 Temperature Temperature Source Pulse Rate 70 Pulse Rate [Apical] 80 Pulse Rate from SpO2 Sensor Respiratory Rate 20 Respiratory Effort / Characteristics Non-Labored Respiratory Depth Normal Blood Pressure Blood Pressure Mean Pulse Oximetry 98 98 Oxygen Delivery Method Room Air Room Air Sepsis Recent Fever Within 48 Hours Sepsis New/Unexplained Change in Mental Status Sepsis Action Taken by Nursing 05/09/23 12:00 05/09/23 13:00 05/09/23 13:30 Temperature Temperature Source Pulse Rate 83 68 72 Pulse Rate [Apical] Pulse Rate from SpO2 Sensor 81 68 Respiratory Rate 19 14 14 Respiratory Effort / Characteristics Respiratory Depth Blood Pressure 107/77 105/77 Blood Pressure Mean 87 86 Pulse Oximetry 95 100 100 Oxygen Delivery Method Sepsis Recent Fever Within 48 Hours Sepsis New/Unexplained Change in Mental Status Sepsis Action Taken by Nursing 05/09/23 14:00 05/09/23 14:26 Temperature Temperature Source Pulse Rate 74 90 Pulse Rate [Apical] Pulse Rate from SpO2 Sensor 74 Respiratory Rate 19 19 Respiratory Effort / Characteristics Respiratory Depth Blood Pressure 129/76 137/84 Blood Pressure Mean 93 101 Pulse Oximetry 100 97 Oxygen Delivery Method Sepsis Recent Fever Within 48 Hours Sepsis New/Unexplained Change in Mental Status Sepsis Action Taken by [facility] Medications Current Medication List: was personally reviewed by me Laboratory Data Attestation: I reviewed the patient's lab results. 05/09/23 11:27 05/09/23 11:27 Lab Results 05/09/23 05/09/23 05/09/23 Range/Units 11:27 11:27 11:27 WBC 9.19 (4.8-10.8) K/ul RBC 3.55 L (4.20-5.40) M/uL Hgb 10.8 L (12.0-16.0) g/dl Hct 32.1 L (37.0-47.0) % MCV 90.4 (80.0-100.0) fL MCH 30.4 (25.0-34.0) pg MCHC 33.6 (32.0-36.0) g/dL RDW Std Deviation 44.6 (36.4-46.3) fL RDW Coeff of [place] 13.6 (11.5-14.5) % Plt Count 229 (130-400) K/uL MPV 10.2 (9.4-12.4) fL Immature Gran % (Auto) 0.7 % Neut % (Auto) 78.1 % Lymph % (Auto) 14.1 % [place] % (Auto) 6.4 % Eos % (Auto) 0.3 % Baso % (Auto) 0.4 % Neut # (Auto) 7.17 H (1.40-6.50) K/uL Lymph # (Auto) 1.30 (1.20-3.40) K/uL [place] # (Auto) 0.59 (0.11-0.59) K/uL Eos # (Auto) 0.03 (0.00-0.50) K/uL Baso # (Auto) 0.04 (0.00-0.20) K/uL Immature Gran # (Auto) 0.06 (0.01-0.20) K/uL PT Cancelled INR Cancelled APTT Cancelled PTT Ratio Cancelled Sodium 137 (136-145) mmol/L Potassium 4.4 (3.5-5.1) mmol/L Chloride 103 (98-107) mmol/L Carbon Dioxide 24 (21-32) mmol/L Anion Gap 10 (3-11) BUN 33 H (6-23) mg/dl Creatinine 1.33 H (0.6-1.2) mg/dl Est Cr Clr Drug Dosing 30.5 ml/min Est GFR ( Amer) 43.0 ml/min Est GFR (Non-Af Amer) 37.1 ml/min BUN/Creatinine Ratio 24.8 H (10-20) Glucose 141 H (70-99(Fasting)) mg/dl Calcium 8.5 L (8.6-10.3) mg/dl Magnesium 2.1 (1.7-2.4) mg/dl Total Bilirubin 1.4 H (0.2-1.0) mg/dl AST 38 (13-39) U/L ALT 25 (7-52) U/L Alkaline Phosphatase 55 (34-104) U/L Troponin I High Sens 207.1 H* (0-14) pg/ml Total Protein 6.9 (6.0-8.3) gm/dl Albumin 4.1 (3.4-5.0) gm/dl Globulin 2.8 (2.5-4.0) gm/dl Albumin/Globulin Ratio 1.5 (0.9-2) Lipase 20 (11-82) U/L 05/09/23 05/09/23 Range/Units 12:36 13:08 WBC (4.8-10.8) K/ul RBC (4.20-5.40) M/uL Hgb (12.0-16.0) g/dl Hct (37.0-47.0) % MCV (80.0-100.0) fL MCH (25.0-34.0) pg MCHC (32.0-36.0) g/dL RDW Std Deviation (36.4-46.3) fL RDW Coeff of [place] (11.5-14.5) % Plt Count (130-400) K/uL MPV (9.4-12.4) fL Immature Gran % (Auto) % Neut % (Auto) % Lymph % (Auto) % [place] % (Auto) % Eos % (Auto) % Baso % (Auto) % Neut # (Auto) (1.40-6.50) K/uL Lymph # (Auto) (1.20-3.40) K/uL [place] # (Auto) (0.11-0.59) K/uL Eos # (Auto) (0.00-0.50) K/uL Baso # (Auto) (0.00-0.20) K/uL Immature Gran # (Auto) (0.01-0.20) K/uL PT 12.1 H INR 1.1 APTT 26.2 PTT Ratio 0.9 Sodium (136-145) mmol/L Potassium (3.5-5.1) mmol/L Chloride (98-107) mmol/L Carbon Dioxide (21-32) mmol/L Anion Gap (3-11) BUN (6-23) mg/dl Creatinine (0.6-1.2) mg/dl Est Cr Clr Drug Dosing ml/min Est GFR ( Amer) ml/min Est GFR (Non-Af Amer) ml/min BUN/Creatinine Ratio (10-20) Glucose (70-99(Fasting)) mg/dl Calcium (8.6-10.3) mg/dl Magnesium (1.7-2.4) mg/dl Total Bilirubin (0.2-1.0) mg/dl AST (13-39) U/L ALT (7-52) U/L Alkaline Phosphatase (34-104) U/L Troponin I High Sens 176.3 H* (0-14) pg/ml Total Protein (6.0-8.3) gm/dl Albumin (3.4-5.0) gm/dl Globulin (2.5-4.0) gm/dl Albumin/Globulin Ratio (0.9-2) Lipase (11-82) U/L Administered Medications Discontinued Medications Diphenhydramine HCl (Diphenhydramine 50 Mg/Ml Vial) Confirm Administered Dose 50 mg .ROUTE .STK-MED ONE Stop: 05/09/23 16:12 Last Admin: 05/09/23 16:59 Dose: 50 mg Documented By: MARINA Fentanyl Citrate (Fentanyl Citrate Pf 100 Mcg/2 Ml Vial) Confirm Administered Dose 100 mcg .ROUTE .STK-MED ONE Stop: 05/09/23 14:51 Last Admin: 05/09/23 16:58 Dose: 100 mcg Documented By: MARINA Fentanyl Citrate (Fentanyl Citrate Pf 100 Mcg/2 Ml Vial) Confirm Administered Dose 100 mcg .ROUTE .STK-MED ONE Stop: 05/09/23 16:01 Last Admin: 05/09/23 17:32 Dose: 100 mcg Documented By: MARINA Sodium Chloride (Nss) 500 mls @ 999 mls/hr IV .Q31M STA Stop: 05/09/23 11:57 Last Infusion: 05/09/23 12:25 Dose: 0 mls/hr Documented By: Admin: 05/09/23 11:49 Dose: 999 mls/hr Documented By: SAMIR Ioversol (Optiray 350 500ml) 117 ml IV ONCE ONE Stop: 05/09/23 12:30 Last Admin: 05/09/23 12:29 Dose: 117 ml Documented By: YISSEL Lidocaine HCl (Lidocaine 1% Local 20 Ml Vial) Confirm Administered Dose 20 ml .ROUTE .STK-MED ONE Stop: 05/09/23 14:41 Last Admin: 05/09/23 16:57 Dose: 20 ml Documented By: MARGOTH Lidocaine HCl (Lidocaine 1% Local 20 Ml Vial) Confirm Administered Dose 20 ml .ROUTE .STK-MED ONE Stop: 05/09/23 15:36 Last Admin: 05/09/23 16:58 Dose: 20 ml Documented By: MARGOTH Midazolam HCl (Midazolam Hcl 5 Mg/Ml 1 Ml Vial) Confirm Administered Dose 5 mg .ROUTE .STK-MED ONE Stop: 05/09/23 14:51 Last Admin: 05/09/23 16:59 Dose: 5 mg Documented By: MARINA Midazolam HCl (Midazolam Hcl 5 Mg/Ml 1 Ml Vial) Confirm Administered Dose 5 mg .ROUTE .STK-MED ONE Stop: 05/09/23 16:12 Last Increment: 05/09/23 17:33 Dose: 3 mg Documented By: MARINA Imaging Data Radiologist's Impression: Chest CTA 05/09/23 11:27 CT ANGIOGRAM OF THE CHEST COMBO CLINICAL HISTORY: Atypical chest pain. Recent pacemaker implantation. COMPARISON STUDY: Chest x-ray dated 05/09/2023. Abdominal CT dated 12/30/2022. TECHNIQUE: Before and following the IV administration of 117 cc of Optiray 350, CT angiogram of the chest was performed from the thoracic inlet to the upper abdomen utilizing the dissection protocol. Images are reviewed in the axial, sagittal, and coronal planes. 3-D MIPS images are created and assessed. IV contrast was administered without complication. A dose lowering technique was utilized adhering to the principles of ALARA. CT DOSE: 581.91 mGy.cm FINDINGS: Thyroid: Imaged portions of the thyroid gland are normal in size and attenuation. Thoracic aorta: The thoracic aorta is normal in caliber and demonstrates standard 3-vessel arch anatomy. No dissection is seen. The arch vessels are widely patent. Pulmonary vasculature: The pulmonary trunk is normal in caliber. There are no filling defects identified in the main, lobar, or segmental pulmonary arteries to indicate pulmonary embolus. Heart: The heart is enlarged. There is a moderate volume of hemopericardium. A 2-lead cardiac pacemaker is in place. Leads are noted in the right atrial appendage and right ventricle. The lead in the right atrial appendage closely approximates the myocardium and may extend into the pericardial space. This difficult to assess due to streak artifact. The coronary arteries are dense and calcified. Lungs and pleural spaces: There is no airspace consolidation, pleural effusion, or pneumothorax. The trachea and central airways are clear. Scattered calcific granulomas are observed. There are numerous (greater than 10) groundglass nodules scattered throughout both lungs. These measure up to 6 mm. Account Classification Clerk nodules are seen in the right lower lobe on image #136, the right middle lobe on images #127, #132, and #153, and in the lingula on image #127. Mediastinum: There is no mediastinal lymphadenopathy. Jenae: Clear. Axillae: There is no axillary lymphadenopathy. Upper abdomen: Partially visualized upper abdominal viscera is within normal limits. Skeletal structures: The skeletal structures are osteopenic. Degenerative change and hyperkyphosis is noted in the thoracic spine. No lytic or blastic bony lesions are seen. Soft tissues: There are focus is a cutaneous gas and soft tissue induration identified in the left lower neck/anterior chest wall. This is likely due to recent pacemaker implantation. No organized fluid collection is seen. IMPRESSION: 1. Normal CT angiogram of the thoracic aorta. 2. Cardiomegaly with an implanted 2-lead cardiac pacemaker as above. 3. Moderate volume of hemopericardium, which is new from the 12/30/[address] The right atrial appendage lead closely approximates/may extend through the myocardial wall and into the pericardial space. Myocardial perforation is not excluded. 4. Subcutaneous gas and soft tissue induration is seen in the left lower neck/chest wall or in the pacemaker generator. This is likely related to the recent implantation. No contrast fluid collection is seen. 5. There is no airspace consolidation or pleural effusion. 6. There are numerous (greater than 10) groundglass nodules scattered throughout both lungs which measure up to 6 mm. These are pathologically indeterminant and should be followed as per the Fleischner criteria. See below. 7. There is no evidence of pulmonary embolus in the main, lobar, or segmental pulmonary arteries. 8. Additional findings as above. Please refer to below summary of Fleischner criteria recommendations for follow- up of incidental CT nodules (Sadia Avila, Guidelines for management of small pulmonary nodules detected on CT scans: A statement from the Fleischner Society, Radiology 237: [phone].) SOLID NODULES Solitary nodule size: <6 mm * low risk patients: no follow-up needed * high risk patients: optional CT at 12 months Solitary nodule size: 6-8 mm * low risk patients: follow-up at 6-12 months, then consider further follow-up at 18-24 months * high risk patients: initial follow-up CT at 6-12 months and then at 18-24 months if no change Solitary nodule size: >8 mm * either low or high risk patients - consider follow-up CT at 3 months, and/or CT-PET, and/or biopsy Multiple nodules size: <6 mm * low risk patients: no routine follow-up * high risk patients: optional CT at 12 months Multiple nodules size: 6-8 mm * low risk patients: follow-up at 3-6 months, then consider further follow-up at 18-24 months * high risk patients: follow-up at 3-6 months, then at 18-24 months if no change Multiple nodules size: >8 mm * low risk patients: follow-up at 3-6 months, then consider further follow-up at 18-24 months * high risk patients: follow-up at 3-6 months, then at 18-24 months if no change Note: newly detected indeterminate nodule in persons 35 years of age or older. * low risk patients: minimal or absent history of smoking and/or other known risk factors * high risk patients: history of smoking or of other known risk factors (e.g. first degree relative with lung cancer, or exposure to asbestos, radon, uranium) * if a nodule up to 8 mm is partly solid or is ground glass further follow-up is required after 24 months to exclude possible slow growing adenocarcinoma (PAT) SUBSOLID NODULES Solitary pure ground-glass nodule * nodule size <6 mm - no CT follow-up required * nodule size >=6 mm - follow-up CT at 6-12 months, then every 2 years until 5 years Solitary part-solid nodule * nodule size <6 mm - no CT follow-up required * nodule size >=6 mm - follow-up CT at 3-6 months. If unchanged, and solid component remains <6 mm, then annual follow-up for 5 years Multiple subsolid nodules * nodule size <6 mm - follow-up CT at 3-6 months, consider further follow-up at 2 and 4 years if stable * nodule size >=6 mm - follow-up CT at 3-6 months, subsequent management based on the most suspicious nodule(s) ACT 112: Positive. There are findings on this exam that require communication between the performing entity and the patient following Patient Test Result Information Act ([place] Act 112) guidelines. Electronically signed by: Nomi Vo M.D. 05/09/2023 12:58 PM Chest X-Ray 05/09/23 11:27 SINGLE VIEW CHEST CLINICAL HISTORY: Atypical chest pain FINDINGS: An AP, portable, upright chest radiograph is compared to study dated 05/07/2023. A 2-lead cardiac pacemaker is unchanged in position and partially obscures the left mid chest. The heart is enlarged noting atherosclerotic calcification of the thoracic aorta. The pulmonary vasculature is noncongested. Chronic interstitial thickening is similar to previous. There is mild bibasilar scarring/atelectasis. The lungs and pleural spaces are otherwise clear. No pneumothorax is seen. The skeletal structures are osteopenic. The bony thorax is grossly intact. IMPRESSION: 1. Cardiomegaly and cardiac pacemaker without radiographic evidence of congestive failure. 2. No airspace consolidation or large pleural effusion is identified. ACT 112: Negative or not required by law. Electronically signed by: Nomi Vo M.D. 05/09/2023 11:42 AM Discharge Plan Visit Data Chief Complaint: Cardiac Assessment Stated Complaint: CARDIAC ASSESSMENT ED Provider: Nomi Lloyd Discharge Problem: Acute pericardial effusion, Pacemaker complications, Precordial chest pain, Elevated troponin, Anemia Patient Disposition: Admitted As Inpatient Condition: Serious Discharge Instructions Interventions: ED Discharge Assessment Last Done: 05/09/23 14:28
--- NOTE | 2023-05-09 11:43 | XRay Report ---
SINGLE VIEW CHEST CLINICAL HISTORY: Atypical chest pain FINDINGS: An AP, portable, upright chest radiograph is compared to study dated 05/07/2023. A 2-lead ca rdiac pacemaker is unchanged in position and partially obscures the left mid chest. The heart is enla rged noting atherosclerotic calcification of the thoracic aorta. The pulmonary vasculature is noncong ested. Chronic interstitial thickening is similar to previous. There is mild bibasilar scarring/atele ctasis. The lungs and pleural spaces are otherwise clear. No pneumothorax is seen. The skeletal struc tures are osteopenic. The bony thorax is grossly intact. IMPRESSION: 1. Cardiomegaly and cardiac pacemaker without radiographic evidence of congestive failure. 2. No airspace consolidation or large pleural effusion is identified. ACT 112: Negative or not required by law. Electronically signed by: Nomi Vo M.D. 05/09/2023 11:42 AM
[2023-05-09 12:03] LABS: Albumin Globulin Ratio 1.5 (0.9-2); Albumin Level 4.1 gm/dl (3.4-5.0); BUN Creatinine Ratio 24.8 (10-20); Bilirubin,Total 1.4 mg/dl (0.2-1.0); Calcium 8.5 mg/dl (8.6-10.3); Creatinine Clr Calc Pharmacy 30.5 ml/min; Est GFR (Non-African American) 37.1 ml/min; Globulin 2.8 gm/dl (2.5-4.0); Magnesium 2.1 mg/dl (1.7-2.4); Potassium 4.4 mmol/L (3.5-5.1); Total Protein 6.9 gm/dl (6.0-8.3)
[2023-05-09 12:17] LABS: Basophils # (auto) 0.04 K/uL (0.00-0.20); Basophils % (auto) 0.4 %; Eosinophils # (auto) 0.03 K/uL (0.00-0.50); Eosinophils % (auto) 0.3 %; Hematocrit (blood only) 32.1 % (37.0-47.0); Hemoglobin 10.8 g/dl (12.0-16.0); Immature Granulocytes # (auto) 0.06 K/uL (0.01-0.20); Immature Granulocytes % (auto) 0.7 %; Lymphocytes % (auto) 14.1 %; Mean Corpuscular Hemoglobin 30.4 pg (25.0-34.0); Mean Corpuscular Hgb Conc 33.6 g/dL (32.0-36.0); Mean Corpuscular Volume 90.4 fL (80.0-100.0); Mean Platelet Volume 10.2 fL (9.4-12.4); Monocytes # (auto) 0.59 K/uL (0.11-0.59); Monocytes % (auto) 6.4 %; Neutrophils # (auto) 7.17 K/uL (1.40-6.50); Neutrophils % (auto) 78.1 %; Platelet Count 229 K/uL (130-400); RDW Coefficient of Variation 13.6 % (11.5-14.5); RDW Standard Deviation 44.6 fL (36.4-46.3); Red Blood Count 3.55 M/uL (4.20-5.40); White Blood Count 9.19 K/ul (4.8-10.8)
[2023-05-09 12:20] LABS: Troponin I High Sensitivity 207.1 pg/ml (0-14)
[2023-05-09] MEDS ORDERED: OPTIRAY 350 500ml IV ONE (12:29)
--- NOTE | 2023-05-09 12:35 | Electrocardiogram Report ---
Test Reason : Blood Pressure : / mmHG Vent. Rate : 079 BPM Atrial Rate : 079 BPM P-R Int : 192 ms QRS Dur : 080 ms QT Int : 382 ms P-R-T Axes : 072 042 039 degrees QTc Int : 438 ms Normal sinus rhythm Normal ECG When compared with ECG of 07-MAY-2023 16:36, Sinus rhythm has replaced Electronic atrial pacemaker Nonspecific T wave abnormality has replaced inverted T waves in Inferior leads Confirmed by Jonathan Blackwood ([id number]) on 05/09/2023 12:35:04 PM Referred By: Confirmed By:Jonathan Blackwood
--- NOTE | 2023-05-09 12:59 | CT Scan Report ---
CT ANGIOGRAM OF THE CHEST COMBO CLINICAL HISTORY: Atypical chest pain. Recent pacemaker implantation. COMPARISON STUDY: Chest x-ray dated 05/09/2023. Abdominal CT dated 12/30/2022. TECHNIQUE: Before and following the IV administration of 117 cc of Optiray 350, CT angiogram of the c hest was performed from the thoracic inlet to the upper abdomen utilizing the dissection protocol. Im ages are reviewed in the axial, sagittal, and coronal planes. 3-D MIPS images are created and assesse d. IV contrast was administered without complication. A dose lowering technique was utilized adherin g to the principles of ALARA. CT DOSE: 581.91 mGy.cm FINDINGS: Thyroid: Imaged portions of the thyroid gland are normal in size and attenuation. Thoracic aorta: The thoracic aorta is normal in caliber and demonstrates standard 3-vessel arch anato my. No dissection is seen. The arch vessels are widely patent. Pulmonary vasculature: The pulmonary trunk is normal in caliber. There are no filling defects identif ied in the main, lobar, or segmental pulmonary arteries to indicate pulmonary embolus. Heart: The heart is enlarged. There is a moderate volume of hemopericardium. A 2-lead cardiac pacemak er is in place. Leads are noted in the right atrial appendage and right ventricle. The lead in the ri ght atrial appendage closely approximates the myocardium and may extend into the pericardial space. T his difficult to assess due to streak artifact. The coronary arteries are dense and calcified. Lungs and pleural spaces: There is no airspace consolidation, pleural effusion, or pneumothorax. The trachea and central airways are clear. Scattered calcific granulomas are observed. There are numerous (greater than 10) groundglass nodules scattered throughout both lungs. These measure up to 6 mm. Rep resentative nodules are seen in the right lower lobe on image #136, the right middle lobe on images # 127, #132, and #153, and in the lingula on image #127. Mediastinum: There is no mediastinal lymphadenopathy. Jenae: Clear. Axillae: There is no axillary lymphadenopathy. Upper abdomen: Partially visualized upper abdominal viscera is within normal limits. Skeletal structures: The skeletal structures are osteopenic. Degenerative change and hyperkyphosis is noted in the thoracic spine. No lytic or blastic bony lesions are seen. Soft tissues: There are focus is a cutaneous gas and soft tissue induration identified in the left lo wer neck/anterior chest wall. This is likely due to recent pacemaker implantation. No organized fluid collection is seen. IMPRESSION: 1. Normal CT angiogram of the thoracic aorta. 2. Cardiomegaly with an implanted 2-lead cardiac pacemaker as above. 3. Moderate volume of hemopericardium, which is new from the 12/30/[address] The right atrial appendage lead closely approximates/may extend through the myocardial wall and into the pericardial s pace. Myocardial perforation is not excluded. 4. Subcutaneous gas and soft tissue induration is seen in the left lower neck/chest wall or in the pa cemaker generator. This is likely related to the recent implantation. No contrast fluid collection is seen. 5. There is no airspace consolidation or pleural effusion. 6. There are numerous (greater than 10) groundglass nodules scattered throughout both lungs which arnie sure up to 6 mm. These are pathologically indeterminant and should be followed as per the Fleischner criteria. See below. 7. There is no evidence of pulmonary embolus in the main, lobar, or segmental pulmonary arteries. 8. Additional findings as above. Please refer to below summary of Fleischner criteria recommendations for follow-up of incidental CT n odules (Sadia Avila, Guidelines for management of small pulmonary nodules detected on CT scans: A sta tement from the Fleischner Society, Radiology 237: [phone].) SOLID NODULES Solitary nodule size: <6 mm * low risk patients: no follow-up needed * high risk patients: optional CT at 12 months Solitary nodule size: 6-8 mm * low risk patients: follow-up at 6-12 months, then consider further follow-up at 18-24 months * high risk patients: initial follow-up CT at 6-12 months and then at 18-24 months if no change Solitary nodule size: >8 mm * either low or high risk patients - consider follow-up CT at 3 months, and/or CT-PET, and/or biopsy Multiple nodules size: <6 mm * low risk patients: no routine follow-up * high risk patients: optional CT at 12 months Multiple nodules size: 6-8 mm * low risk patients: follow-up at 3-6 months, then consider further follow-up at 18-24 months * high risk patients: follow-up at 3-6 months, then at 18-24 months if no change Multiple nodules size: >8 mm * low risk patients: follow-up at 3-6 months, then consider further follow-up at 18-24 months * high risk patients: follow-up at 3-6 months, then at 18-24 months if no change Note: newly detected indeterminate nodule in persons 35 years of age or older. * low risk patients: minimal or absent history of smoking and/or other known risk factors * high risk patients: history of smoking or of other known risk factors (e.g. first degree relative with lung cancer, or exposure to asbestos, radon, uranium) * if a nodule up to 8 mm is partly solid or is ground glass further follow-up is required after 24 m onths to exclude possible slow growing adenocarcinoma (PAT) SUBSOLID NODULES Solitary pure ground-glass nodule * nodule size <6 mm - no CT follow-up required * nodule size >=6 mm - follow-up CT at 6-12 months, then every 2 years until 5 years Solitary part-solid nodule * nodule size <6 mm - no CT follow-up required * nodule size >=6 mm - follow-up CT at 3-6 months. If unchanged, and solid component remains <6 mm, then annual follow-up for 5 years Multiple subsolid nodules * nodule size <6 mm - follow-up CT at 3-6 months, consider further follow-up at 2 and 4 years if sta ble * nodule size >=6 mm - follow-up CT at 3-6 months, subsequent management based on the most suspiciou s nodule(s) ACT 112: Positive. There are findings on this exam that require communication between the performing entity and the patient following Patient Test Result Information Act ([place] Act 112) guidelines. Electronically signed by: Nomi Vo M.D. 05/09/2023 12:58 PM
[2023-05-09 13:26] LABS: INR 1.1 (0.9-1.1); Partial Thromboplastin Ratio 0.9; Partial Thromboplastin Time 26.2 Seconds (21.0-31.0); Prothrombin Time 12.1 Seconds (9.0-12.0)
--- NOTE | 2023-05-09 14:38 | History & Physical Bridge Note ---
Date of Service May 09, 2023 History & Physical Bridge Note I have examined the patient, reviewed the History & Physical and in the interval since the performance of the History & Physical I have noted the following changes of clinical significance: pt with pericardial effusion due to perfororated right atrial pacemaker lead; for a pericardicentesis and a pacemaker lead reposition. Discussed the procedure and potential risks with the patient-risks including heart attacks, strokes, , arrhythmia, injury to the lung, cardiac chambers, blood vessels, bleeding and infection. she expressed an understanding and consents signed.
--- NOTE | 2023-05-09 14:39 | Pre Anesthesia Assessment ---
Date of Service May 09, 2023 Pre Sedation Assessment Vital Signs Temp Pulse Pulse Resp BP Pulse Ox O2 Del Method 05/09/23 14:26 90 19 137/84 97 05/09/23 14:00 74 19 129/76 100 05/09/23 13:30 72 14 105/77 100 05/09/23 13:00 68 14 107/77 100 05/09/23 12:00 83 19 95 05/09/23 12:01 70 05/09/23 11:38 98 Room Air 05/09/23 11:38 80 20 98 Room Air 05/09/23 11:38 98 Room Air 05/09/23 11:11 36.5 C 87 20 98/74 L 99 Room Air Cardiovascular RRR, no murmur, no edema Respiratory normal respiratory effort, lungs clear to auscultation Pre-Sedation Airway Assessment Smoking Status: Former smoker Hx Sleep Apnea: No Oral Cavity: + Dental Abnormalities Mallampati Class: II ASA: ASA3 NPO Status Date of Last Intake of Fluids: 05/08/23 Date of Last Intake of Solid Food: 05/08/23 Procedure Planning Contraindications for Sedation: none Current Medications Reviewed: Yes Notes The planned sedation has been discussed with the patient. Informed Consent was obtained. I have identified the patient, determined the appropriateness of sedation and have assessed the patient immediately prior to the procedure. All medicine(s) and interventions are by my order.
[2023-05-09] MEDS ORDERED: LIDOCAINE 1% LOCAL 20 ML VIAL ONE ×2 (14:40→15:35)
[2023-05-09] MEDS ORDERED: MIDAZOLAM HCL 5 MG/ML 1 ML VIAL ONE ×2 (14:50→16:11)
[2023-05-09] MEDS ORDERED: fentaNYL citrate PF 100 MCG/2 ML VIAL ONE ×2 (14:50→16:00)
--- NOTE | 2023-05-09 15:03 | Cardiology Consultation ---
Date of Consultation May 09, 2023 Assessment & Plan (1) Pericardial effusion: (2) Cardiac tamponade: (3) Pacemaker complications: Plan Case discussed with electrophysiology and interventional cardiology. Patient will be taken to the electrophysiology lab for pericardiocentesis followed by atrial lead revision. Clinical findings and plan of care discussed at length with patient and her . They are agreeable to proceed. History of Present Illness Reason for Consultation: Possible pacemaker complication, atrial lead perforation, pericardial effusion Requesting Physician: Dr. Nomi Lloyd [facility] History of Present Illness 82-year-old female presents to the ER due to chest and back pain beginning yesterday morning. Recent history significant for dual-chamber pacemaker implantation 05/07/2023. Borderline hypotensive on presentation with improved blood pressure readings currently. CT angiogram of the chest demonstrating moderate pericardial effusion with possible atrial lead perforation. Bedside echocardiogram demonstrates a large pericardial effusion with possible right atrial lead perforation. Tamponade physiology is present although the patient currently normotensive. Allergies Allergy/AdvReac Type Severity Reaction Status Date / Time amoxicillin Allergy Mild Rash Verified 05/07/23 11:33 bacitracin Allergy Mild RASH Verified 05/07/23 11:33 neomycin Allergy Mild RASH Verified 05/07/23 11:33 polymyxin B Allergy Mild RASH Verified 05/07/23 11:33 sulfamethoxazole Allergy Mild rash Verified 05/07/23 11:33 trimethoprim Allergy Mild rash Verified 05/07/23 11:33 Bactrim Allergy Unknown rash Verified 03/17/18 10:42 aspirin [From Aggrenox] Allergy Unknown Verified 05/07/23 11:33 dipyridamole [From Aggrenox] Allergy Unknown Verified 05/07/23 11:33 cyclobenzaprine AdvReac Severe sedation Verified 05/07/23 11:33 [From Flexeril] Home Medications Medication Instructions Recorded Confirmed Type cholecalciferol (vitamin D3) 25 1,000 unit PO DAILY 11/16/18 05/07/23 History mcg (1,000 unit) capsule (Vitamin D3) levothyroxine 50 mcg tablet See Rx Instructions .Route .COMPLEX 11/16/18 05/07/23 History ondansetron 4 mg disintegrating 4 mg PO Q8 PRN Nausea 11/16/18 05/07/23 History tablet simvastatin 20 mg tablet 20 mg PO HS 11/16/18 05/07/23 History Lactobacillus acidophilus 10 10,000 mmu cells PO DAILY 10/04/21 05/07/23 History billion cell capsule (Probiotic) apixaban 5 mg tablet (Eliquis) 5 mg PO BID 10/04/21 05/07/23 History lisinopril 10 1 tab PO DAILY 10/04/21 05/07/23 History mg-hydrochlorothiazide 12.5 mg tablet multivitamin 1 tab PO DAILY 10/04/21 05/07/23 History Patient History Medical History Colitis HX GERD (gastroesophageal reflux disease) Hyperlipidemia Hypertension HX OF Hypothyroidism Osteoarthritis Temporomandibular joint disorder Urinary frequency DURING NIGHT TIME Vertigo Surgical History History of adenoidectomy History of arthroscopy KNEE History of breast biopsy History of cholecystectomy History of colonoscopy History of hysterectomy History of left knee replacement History of tonsillectomy History of tooth extraction History of total knee replacement LEFT Family History Grandfather (Paternal) Family history of diabetes mellitus Father Family hx colonic polyps Social History Smoking Status: Former smoker Second Hand Exposure: No; Do You Dip or Chew Tobacco: No; Hx Alcohol Use: No Hx Substance Use: No Preferred Language: Stateless Communication Ability: Effective District Captain Required: No Beliefs That Will Affect Care: None Current Living Situation: Spouse Feels Safe at Home: Yes Assistive Devices: Glasses Review of Systems Review of Systems: All systems reviewed & are unremarkable except as noted in Subjective Physical Exam Constitutional: well nourished; no acute distress and not ill appearing Respiratory: normal respiratory effort; no respiratory distress, no labored breathing and no retractions Cardiovascular: Rate/Rhythm: regular rate and regular rhythm Heart Sounds: normal S1 (Distant heart sounds), normal S2 and + murmur (1/6 systolic murmur) Vessels: + JVD; no carotid bruit Extremities: no edema Neurologic: CN's II-XI intact bilaterally and moves all extremities; no focal motor deficits Results & Data Vital Signs (Past 12 Hours) Vital Signs Temp Pulse Pulse Resp BP Pulse Ox O2 Del Method 05/09/23 14:26 90 19 137/84 97 05/09/23 14:00 74 19 129/76 100 05/09/23 13:30 72 14 105/77 100 05/09/23 13:00 68 14 107/77 100 05/09/23 12:00 83 19 95 05/09/23 12:01 70 05/09/23 11:38 98 Room Air 05/09/23 11:38 80 20 98 Room Air 05/09/23 11:38 98 Room Air 05/09/23 11:11 36.5 C 87 20 98/74 L 99 Room Air Laboratory Results Cardiac Enzymes 05/09/23 05/09/23 Range/Units 11:27 13:08 AST 38 (13-39) U/L Troponin I High Sens 207.1 H* 176.3 H* (0-14) pg/ml Coagulation 05/09/23 05/09/23 Range/Units 11:27 12:36 PT Cancelled 12.1 H APTT Cancelled 26.2 CBC 05/09/23 Range/Units 11:27 WBC 9.19 (4.8-10.8) K/ul RBC 3.55 L (4.20-5.40) M/uL Hgb 10.8 L (12.0-16.0) g/dl Hct 32.1 L (37.0-47.0) % Plt Count 229 (130-400) K/uL Neut # (Auto) 7.17 H (1.40-6.50) K/uL Lymph # (Auto) 1.30 (1.20-3.40) K/uL [place] # (Auto) 0.59 (0.11-0.59) K/uL Eos # (Auto) 0.03 (0.00-0.50) K/uL Baso # (Auto) 0.04 (0.00-0.20) K/uL Comprehensive Metabolic Panel 05/09/23 Range/Units 11:27 Sodium 137 (136-145) mmol/L Potassium 4.4 (3.5-5.1) mmol/L Chloride 103 (98-107) mmol/L Carbon Dioxide 24 (21-32) mmol/L BUN 33 H (6-23) mg/dl Creatinine 1.33 H (0.6-1.2) mg/dl Glucose 141 H (70-99(Fasting)) mg/dl Calcium 8.5 L (8.6-10.3) mg/dl AST 38 (13-39) U/L ALT 25 (7-52) U/L Alkaline Phosphatase 55 (34-104) U/L Total Protein 6.9 (6.0-8.3) gm/dl Albumin 4.1 (3.4-5.0) gm/dl Intake and Output 05/09/23 05/09/23 05/09/23 06:59 14:59 22:59 Intake Total 500 / 500 Balance 500 / 500 Intake: IV 500 / 500 Sodium Chloride 0.9% 500 ml @ 500 / 500 999 mls/hr IV .Q31M STA Rx#: [id number] Other: Weight 63.4 kg Weight Measurement Method Built in [facility] Patient Weight 05/10/23 06:59 Weight 63.4 kg
[2023-05-09] MEDS ORDERED: diphenhydrAMINE 50 MG/ML VIAL ONE (16:11)
--- NOTE | 2023-05-09 17:43 | Operative Report ---
Post Operative Report DICTATED BY:Candie Perez D.O. DATE OF PROCEDURE: 05/09/2023. PREOPERATIVE DIAGNOSES: Pericardial effusion and Right atrial pacemaker lead perforation POSTOPERATIVE DIAGNOSIS:same PROCEDURE: Pericardiocentesis under echocardiogram and fluoroscopic guidance, failed repositioning of RA pacemaker lead, peripheral venogram, dual chamber pacemaker and lead extraction of the RA and left bundle pacemaker leads SURGEON: Candie Perez DO ASSISTANTS: Dr. Gómez ANESTHESIA: Monitored conscious sedation administered under my supervision by Estuardo Vazquez. Start time 15:00, end time 17:34, a total of 8 mg of Versed and 200 mcg of fentanyl. 25mg bendaryl INTRAVENOUS FLUIDS: 688 mL. CONTRAST: 10 mL. ANTIBIOTICS: 1 grams of Ancef. BLOOD LOSS: 500 mL. URINE OUTPUT: Not applicable. SPECIMENS: None. FINDINGS: See below. DRAINS: None. COMPLICATIONS: None. CONDITION: Stable. INDICATIONS: This is a 82-year-old female with PMH SSS s/p ppm 05/07/2023, Moderate MR, HLD, ?PAD? As per medical chart,H/O TIA, Hypothyroidism, CKD stage III, H/o Non-melanoma skin cancer, GERD. She presented to [facility] due to worsening SOB found to have a pericardial effusion and RA pacing lead perforation. She was recommended urgent pericardiocentesis and RA pacemaker lead revision. CONSENT: Consent was obtained prior to the patient going into the electrophysiology lab. The patient was informed of the risks, benefits, and alternatives to the procedure. Risks include, but not limited to, sudden cardiac , cardiac arrhythmias, cerebrovascular accident, myocardial infarction, injury to his blood vessels, chamber of the heart and lung, bleeding and infection. The patient understood these risks and agreed to the procedure as planned. Informed consent was obtained. DESCRIPTION OF PROCEDURE: The patient was brought into electrophysiology lab in a fasting state. She was connected to continuous cardiac monitoring. A timeout was performed to ensure the patient's identity and procedure correctly. She was prepped and draped in the sub-xiphoid position in normal surgical standard fashion. Monitored conscious sedation was given throughout the procedure for the patient's comfort level. [place] precautions were maintained throughout the procedure. Then 10cc of 1% lidocaine was given in the sub-xiphoid position. Then using a access needle the pericardium was accessed and a wire was advanced under fluoroscopy. Then a sheath was advanced over the wire and aggitated saline was given to see under echocardiography in the pericardial space confirming our access was in the pericardium. Then a pigtail catheter was advanced through the sheath over the wire. 400cc of blood was drained. The echo showed the effusion to significantly decrease in size. Then the pigtail was connected to suction. Dr. Gómez was present for the pericardiocentesis for assistance. Then Dr. Gómez got left radial artery access for an arterial line to monitor BP. Then the patient was undraped and was prepped and draped in the left infraclavicular space in normal surgical standard fashion. Monitored conscious sedation was given throughout the procedure for the patient's comfort level. [place] precautions were maintained throughout the procedure. Prophylactic antibiotics were given prior to incision. A 20 mL of 1% lidocaine and bupivacaine mixture were given in the left deltopectoral groove. The prior incision was opened up with Blunt dissection and the sutures were removed. Blunt dissection to suture sleeves. 0Silk suture was removed around the leads. Then I put new o Silk suture around the left bundle lead. The RA lead screw was retracted under fluro. The BP remained stable. I then attempted to reposition the RA lead using multiple different shaped stylets. But it kept going into the same anterior position. Then with all of the manipulation of the RA lead the left bundle lead dislodged. Then, a peripheral venogram was performed which revealed the left subclavian vein distally and axillary vein proximally to be occluded. The only place i would be able to get access was very medial on the subclavian vein. I thought this was too high of a risk for a PTX. Her indication was for SSS and she has an underlying rhythm; so I opted to extract both leads and close up without inserting another pacemaker The pocket was flushed with copious amounts of vancomycin and saline wash and inspected for hemostasis. The incision was closed in a 3-layer fashion using 2-0 Vicryl interrupted suture, followed by 3-0 Vicryl interrupted suture, followed by 4-0 Monocryl running stitch. Dermabond was applied followed by primaseal dressing.. EQUIPMENT Explanted: 1. Pulse generator is a [employer] [place] XT DR ERICK Moody [id number], serial number [id number]. 05/07/2023 2. Right atrial lead, Medtronic 5076-52 cm, serial number [id number] implanted 05/07/2023 3. Left bundle lead, Medtronic 3830-69 cm, serial number [id number] implanted 05/07/2023 4. Tyrx pouch was explanted as well IMPRESSION: Successful Pericardiocentesis under echocardiogram and fluoroscopic guidance, failed repositioning of RA pacemaker lead, peripheral venogram, dual chamber pacemaker and right atrial and left bundle pacemaker leads extraction due to Pericardial effusion and Right atrial pacemaker lead perforation. PLAN: Monitor the patient post-procedure. Repeat echo in holding area. Transfer to ICU. Keep pigtail catheter to suction. Re-echo tomorrow and hopefully pull the pigtail catheter.
--- NOTE | 2023-05-09 19:27 | Post Anesthesia Assessment ---
Date of Service May 09, 2023 Post Sedation Assessment Vital Signs Temp Pulse Pulse Resp BP BP Pulse Ox 05/09/23 18:46 161/63 H 05/09/23 18:46 81 24 05/09/23 18:45 81 20 05/09/23 18:30 88 23 05/09/23 18:30 159/71 H 05/09/23 18:20 81 22 05/09/23 18:18 36.5 C 81 20 160/48 H 95 05/09/23 14:26 90 19 137/84 97 05/09/23 14:00 74 19 129/76 100 05/09/23 13:30 72 14 105/77 100 05/09/23 13:00 68 14 107/77 100 05/09/23 12:00 83 19 95 05/09/23 12:01 70 05/09/23 11:38 98 05/09/23 11:38 80 20 98 05/09/23 11:38 98 05/09/23 11:11 36.5 C 87 20 98/74 L 99 O2 Del Method 05/09/23 18:46 05/09/23 18:46 05/09/23 18:45 05/09/23 18:30 05/09/23 18:30 05/09/23 18:20 05/09/23 18:18 Room Air 05/09/23 14:26 05/09/23 14:00 05/09/23 13:30 05/09/23 13:00 05/09/23 12:00 05/09/23 12:01 05/09/23 11:38 Room Air 05/09/23 11:38 Room Air 05/09/23 11:38 Room Air 05/09/23 11:11 Room Air Recovery Score Activity: Moves 4 extremities Respiration: Deep Breath/Cough Circulation: +/-20% PreAnes Value Consciousness: Fully Awake Oxygen Saturation: > 92% On Room Air Discharge Sedation Level of Care: Fast Track Phase II Post Sedation Plan On clinical assessment, the patient appears to have tolerated the sedation without complications. Patient is recovering as anticipated. Patient will continue to be monitored by nursing and may be discharged when sedation discharge criteria are met per below protocol. Upon Completions of procedure up to 15 minutes continue every 5 minute vital signs and the P.A.R. score; then discharge to a Phase I or Fast Track to Phase II per the following guidelines: * Discharge Patient to appropriate Phase II area if PAR is 8 or greater or return to pre- procedure baseline. The post - procedure orders will be as directed. * If PAR score is less than 8 or not return to pre-procedure baseline then patient will follow Phase I monitoring till PAR is reached for Phase II. The Phase I may be done in procedure room or may call to secure a Phase I area. * If naloxone or flumazenil are used for reversal, hold in Phase I for continued monitoring from when last reversal dose was given for a minimum of 60 minutes or longer pending the nurse and/or physician discretion of patient condition before discharge to Phase II. Please call the Sedation Physician to re-evaluate and complete post-note for discharge to Phase II area. Do NOT discharge from procedure sedation or Phase 1 until post- sedation evaluation note is complete by procedure /sedation MD Sedation Discharge Instructions to be given to the patient at discharge to home.
--- NOTE | 2023-05-09 19:37 | Critical Care Consultation ---
Date of Consultation May 09, 2023 Assessment & Plan (1) Pacemaker complications: (2) Cardiac tamponade: (3) Pericardial effusion: (4) Dyslipidemia: (5) GERD (gastroesophageal reflux disease): (6) Hypertension: Plan Reason Critically Ill: 82 YOF admitted to ICU following pericardiocentesis secondary to atrial pacemaker lead rupture. She is s/p 400 ml bloody drainage of pericardial effusion and extraction of pacemaker leads and device. ECHO following procedure is interpreted with EF 40-45% and resolved tamponade physiology. Neuro -Acute pain, HX of vertigo, TIA CAM ICU: NEGATIVE - Tylenol for pain, morphine if needed, avoid NSAIDS - maintain normal sleep wake cycles Cardiac - Pericardiocentesis, pacemaker extraction, complication from pacemaker, Occlusion of subclavia/axillary vein, PAF - Cardiology and EP cardiology following patient - drain remains in place to 3 way stop-cock to hemovac drain, draining serosang drainage - ECHO improved- repeat per cardiology for follow up/resolution - Follow hemodynamics- if decompensation- attempt to remove fluid from drain and provide colloid and vasopressors - Elevated HsCTNI likely demand in the setting of pericardial effusion, continue to trend - Hold Eliquis- appears to be on for PAF with hx of TIAs- full record review not available at this time - Venous Occlusion subclavia/axillary- per venogram in [facility]- anticoagulation when able Respiratory - No acute needs GI - No acute needs - Not on PPI at home - Advance diet as tolerated RENAL/LYTES - CKD - RAMILA II on CKD III- 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 This is a life/limb threatening event. This includes time spent evaluating patient, direct bedside care, chart review, placing orders, interpretation of diagnostic studies, discussion with consultants, patient, and family members, as well as other required patient management activities. This time is exclusive of all separately billable procedures, and separate from and in addition to any other critical care service time. Thank you for allowing us to participate in the care of this patient. Please refer to my attending physician's documentation for any further recommendations. History of Present Illness Reason for Consultation: S/P Pericardiocentesis and removal of pacemaker lead and device Requesting Physician: Sandhya Babcock Attending Physician: Sandhya Babcock DO History of Present Illness 82 YOF presented to the EMD today for complaints of substernal chest pain with radiation to the back- this was associated with lightheaded and shortness of breath. SHe was noted to have PPM placed 05/07/23 for SSS. In the EMD she had ECG peformed, routine labs, CXR, and CTA of the chest. Her CTA of the chest was reported with moderate pericardial effusion and possible atrial lead rupture. She had an ECHO performed with cardiology consultation. She was noted to have some tamponade physiology and likely a atrial lead rupture, for this she was taken to the laborer livestock suite. Patient underwent Pericardiocentesis under fluoroscopy as well as attempted re-positioning of the atrial lead, this was unable to be done and secondary to reported occlusion of the subclavian vein distally and axillary proximally- the lead and device was extracted. The patient had 400ml drained from the pericardial space and drain was left in place to [address] way stopcock and to hemovac drain. She had repeat ECHO performed following the procedure and noted with improved EF without tamponade physiology. Patient was evaluated in the ICU following procedure, she is awake, remains with chest discomfort around pacemaker exertion site as well as back pain. She feels both are improved from earlier. She is with normal heart rate and remains with arterial line in with adequate SBP and MAPS. She is on Room air and no distress at this moment. CODE: FULL Allergies Allergy/AdvReac Type Severity Reaction Status Date / Time amoxicillin Allergy Mild Rash Verified 05/07/23 11:33 bacitracin Allergy Mild RASH Verified 05/07/23 11:33 neomycin Allergy Mild RASH Verified 05/07/23 11:33 polymyxin B Allergy Mild RASH Verified 05/07/23 11:33 sulfamethoxazole Allergy Mild rash Verified 05/07/23 11:33 trimethoprim Allergy Mild rash Verified 05/07/23 11:33 Bactrim Allergy Unknown rash Verified 03/17/18 10:42 aspirin [From Aggrenox] Allergy Unknown Verified 05/07/23 11:33 dipyridamole [From Aggrenox] Allergy Unknown Verified 05/07/23 11:33 cyclobenzaprine AdvReac Severe sedation Verified 05/07/23 11:33 [From Flexeril] Home Medications Medication Instructions Recorded Confirmed Type cholecalciferol (vitamin D3) 25 1,000 unit PO DAILY 11/16/18 05/07/23 History mcg (1,000 unit) capsule (Vitamin D3) levothyroxine 50 mcg tablet See Rx Instructions .Route .COMPLEX 11/16/18 05/07/23 History ondansetron 4 mg disintegrating 4 mg PO Q8 PRN Nausea 11/16/18 05/07/23 History tablet simvastatin 20 mg tablet 20 mg PO HS 11/16/18 05/07/23 History Lactobacillus acidophilus 10 10,000 mmu cells PO DAILY 10/04/21 05/07/23 History billion cell capsule (Probiotic) apixaban 5 mg tablet (Eliquis) 5 mg PO BID 10/04/21 05/07/23 History lisinopril 10 1 tab PO DAILY 10/04/21 05/07/23 History mg-hydrochlorothiazide 12.5 mg tablet multivitamin 1 tab PO DAILY 10/04/21 05/07/23 History Patient History Medical History Colitis HX GERD (gastroesophageal reflux disease) Hyperlipidemia Hypertension HX OF Hypothyroidism Osteoarthritis Temporomandibular joint disorder Urinary frequency DURING NIGHT TIME Vertigo Surgical History History of adenoidectomy History of arthroscopy KNEE History of breast biopsy History of cholecystectomy History of colonoscopy History of hysterectomy History of left knee replacement History of tonsillectomy History of tooth extraction History of total knee replacement LEFT Family History Grandfather (Paternal) Family history of diabetes mellitus Father Family hx colonic polyps Social History Smoking Status: Never smoker Second Hand Exposure: No; Do You Dip or Chew Tobacco: No; Tobacco Cessation Education Requested by Patient: No Hx Alcohol Use: Yes Alcohol type: wine Hx Substance Use: No Preferred Language: Burkinan Communication Ability: Effective Php Software Engineer Required: No Beliefs That Will Affect Care: Spiritual Current Living Situation: Spouse Other Information That Helps Us Care for You: No Feels Safe at Home: Yes Safety Concerns: Feels Safe At This Time Assistive Devices: Glasses Review of Systems Review of Systems: REVIEW OF SYSTEMS: Constitutional: No fever, sweats or chills Eyes: No diplopia, no worsening or blurred vision ENT: normal hearing, no trouble swallowing Respiratory: (+) dyspnea on exertion, No cough, sputum, Cardiovascular: (+) chest pain and back pain, worse with movement and deep inspiration, No chest pain, tightness or palpitations Abdomen: No pain, nausea, vomiting, diarrhea or constipation Musculoskeletal: No joint pain, calf pain, swelling Neurologic: No weakness, numbness/tingling Psychiatric: No anxiety or depression Skin: No rash or itch Physical Exam Physical Exam: PHYSICAL EXAM: General: awake, alert, no apparent distress Head: Normocephalic, atraumatic ENT: PERRLA, EOMI, no pharyngeal exudate, mucous membranes moist Neuro: AAO x 3, speech clear and appropriate, strength intact bilaterally 5/5, sensation intact and equal all extremities and dermatomes, no pronator drift Chest: equal rise and fall of the chest, no accessory muscle use, no heaves or thrills, Clear to auscultation, on room air, Cardiac: Regular rate and rhythm, telemetry reviewed- NSR no ectopy, skin warm dry, cap refill <3 seconds, peripheral pulses +2 no JVD, no murmur, no edema, radial arterial line in place with warm fingers and sensation intact, pain to left chest and back- patient reports improved from earlier, is with pericardial drain in place to 3 way stop-cock to off GI: NABS x 4 quadrants, soft, nontender to palpation, no rebound, guarding or tenderness : Spontaneously voiding, no pain, no CVA tenderness, Extremities: Normal inspection, no peripheral edema or erythema, calfs nontender to palpation Psych: Normal mood and affect Results & Data Results & Data Vital Signs (Past 12 Hours) Vital Signs Temp Pulse Pulse Resp BP BP Pulse Ox 05/09/23 18:46 161/63 H 05/09/23 18:46 81 24 05/09/23 18:45 81 20 05/09/23 18:30 88 23 05/09/23 18:30 159/71 H 05/09/23 18:20 81 22 05/09/23 18:18 36.5 C 81 20 160/48 H 95 05/09/23 14:26 90 19 137/84 97 05/09/23 14:00 74 19 129/76 100 05/09/23 13:30 72 14 105/77 100 05/09/23 13:00 68 14 107/77 100 05/09/23 12:00 83 19 95 05/09/23 12:01 70 05/09/23 11:38 98 05/09/23 11:38 80 20 98 05/09/23 11:38 98 05/09/23 11:11 36.5 C 87 20 98/74 L 99 O2 Del Method 05/09/23 18:46 05/09/23 18:46 05/09/23 18:45 05/09/23 18:30 05/09/23 18:30 05/09/23 18:20 05/09/23 18:18 Room Air 05/09/23 14:26 05/09/23 14:00 05/09/23 13:30 05/09/23 13:00 05/09/23 12:00 05/09/23 12:01 05/09/23 11:38 Room Air 05/09/23 11:38 Room Air 05/09/23 11:38 Room Air 05/09/23 11:11 Room Air Laboratory Results Abnormal lab results 05/09/23 05/09/23 05/09/23 Range/Units 11:27 11:27 12:36 RBC 3.55 L (4.20-5.40) M/uL Hgb 10.8 L (12.0-16.0) g/dl Hct 32.1 L (37.0-47.0) % Neut # (Auto) 7.17 H (1.40-6.50) K/uL PT 12.1 H (9.0-12.0) Seconds BUN 33 H (6-23) mg/dl Creatinine 1.33 H (0.6-1.2) mg/dl BUN/Creatinine Ratio 24.8 H (10-20) Glucose 141 H (70-99(Fasting)) mg/dl Calcium 8.5 L (8.6-10.3) mg/dl Total Bilirubin 1.4 H (0.2-1.0) mg/dl Troponin I High Sens 207.1 H* (0-14) pg/ml 05/09/23 Range/Units 13:08 RBC (4.20-5.40) M/uL Hgb (12.0-16.0) g/dl Hct (37.0-47.0) % Neut # (Auto) (1.40-6.50) K/uL PT (9.0-12.0) Seconds BUN (6-23) mg/dl Creatinine (0.6-1.2) mg/dl BUN/Creatinine Ratio (10-20) Glucose (70-99(Fasting)) mg/dl Calcium (8.6-10.3) mg/dl Total Bilirubin (0.2-1.0) mg/dl Troponin I High Sens 176.3 H* (0-14) pg/ml Diagnostic Findings Chest CTA 05/09/23 11:27 CT ANGIOGRAM OF THE CHEST COMBO CLINICAL HISTORY: Atypical chest pain. Recent pacemaker implantation. COMPARISON STUDY: Chest x-ray dated 05/09/2023. Abdominal CT dated 12/30/2022. TECHNIQUE: Before and following the IV administration of 117 cc of Optiray 350, CT angiogram of the chest was performed from the thoracic inlet to the upper abdomen utilizing the dissection protocol. Images are reviewed in the axial, sagittal, and coronal planes. 3-D MIPS images are created and assessed. IV contrast was administered without complication. A dose lowering technique was utilized adhering to the principles of ALARA. CT DOSE: 581.91 mGy.cm FINDINGS: Thyroid: Imaged portions of the thyroid gland are normal in size and attenuation. Thoracic aorta: The thoracic aorta is normal in caliber and demonstrates standard 3-vessel arch anatomy. No dissection is seen. The arch vessels are widely patent. Pulmonary vasculature: The pulmonary trunk is normal in caliber. There are no filling defects identified in the main, lobar, or segmental pulmonary arteries to indicate pulmonary embolus. Heart: The heart is enlarged. There is a moderate volume of hemopericardium. A 2-lead cardiac pacemaker is in place. Leads are noted in the right atrial appendage and right ventricle. The lead in the right atrial appendage closely approximates the myocardium and may extend into the pericardial space. This difficult to assess due to streak artifact. The coronary arteries are dense and calcified. Lungs and pleural spaces: There is no airspace consolidation, pleural effusion, or pneumothorax. The trachea and central airways are clear. Scattered calcific granulomas are observed. There are numerous (greater than 10) groundglass nodules scattered throughout both lungs. These measure up to 6 mm. Master Sheet Clerk nodules are seen in the right lower lobe on image #136, the right middle lobe on images #127, #132, and #153, and in the lingula on image #127. Mediastinum: There is no mediastinal lymphadenopathy. Jenae: Clear. Axillae: There is no axillary lymphadenopathy. Upper abdomen: Partially visualized upper abdominal viscera is within normal limits. Skeletal structures: The skeletal structures are osteopenic. Degenerative change and hyperkyphosis is noted in the thoracic spine. No lytic or blastic bony lesions are seen. Soft tissues: There are focus is a cutaneous gas and soft tissue induration identified in the left lower neck/anterior chest wall. This is likely due to recent pacemaker implantation. No organized fluid collection is seen. IMPRESSION: 1. Normal CT angiogram of the thoracic aorta. 2. Cardiomegaly with an implanted 2-lead cardiac pacemaker as above. 3. Moderate volume of hemopericardium, which is new from the 12/30/[address] The right atrial appendage lead closely approximates/may extend through the myocardial wall and into the pericardial space. Myocardial perforation is not excluded. 4. Subcutaneous gas and soft tissue induration is seen in the left lower neck/chest wall or in the pacemaker generator. This is likely related to the recent implantation. No contrast fluid collection is seen. 5. There is no airspace consolidation or pleural effusion. 6. There are numerous (greater than 10) groundglass nodules scattered throughout both lungs which measure up to 6 mm. These are pathologically indeterminant and should be followed as per the Fleischner criteria. See below. 7. There is no evidence of pulmonary embolus in the main, lobar, or segmental pulmonary arteries. 8. Additional findings as above. Please refer to below summary of Fleischner criteria recommendations for follow- up of incidental CT nodules (Sadia Avila, Guidelines for management of small pulmonary nodules detected on CT scans: A statement from the Fleischner Society, Radiology 237: [phone].) SOLID NODULES Solitary nodule size: <6 mm * low risk patients: no follow-up needed * high risk patients: optional CT at 12 months Solitary nodule size: 6-8 mm * low risk patients: follow-up at 6-12 months, then consider further follow-up at 18-24 months * high risk patients: initial follow-up CT at 6-12 months and then at 18-24 months if no change Solitary nodule size: >8 mm * either low or high risk patients - consider follow-up CT at 3 months, and/or CT-PET, and/or biopsy Multiple nodules size: <6 mm * low risk patients: no routine follow-up * high risk patients: optional CT at 12 months Multiple nodules size: 6-8 mm * low risk patients: follow-up at 3-6 months, then consider further follow-up at 18-24 months * high risk patients: follow-up at 3-6 months, then at 18-24 months if no change Multiple nodules size: >8 mm * low risk patients: follow-up at 3-6 months, then consider further follow-up at 18-24 months * high risk patients: follow-up at 3-6 months, then at 18-24 months if no change Note: newly detected indeterminate nodule in persons 35 years of age or older. * low risk patients: minimal or absent history of smoking and/or other known risk factors * high risk patients: history of smoking or of other known risk factors (e.g. first degree relative with lung cancer, or exposure to asbestos, radon, uranium) * if a nodule up to 8 mm is partly solid or is ground glass further follow-up is required after 24 months to exclude possible slow growing adenocarcinoma (PAT) SUBSOLID NODULES Solitary pure ground-glass nodule * nodule size <6 mm - no CT follow-up required * nodule size >=6 mm - follow-up CT at 6-12 months, then every 2 years until 5 years Solitary part-solid nodule * nodule size <6 mm - no CT follow-up required * nodule size >=6 mm - follow-up CT at 3-6 months. If unchanged, and solid component remains <6 mm, then annual follow-up for 5 years Multiple subsolid nodules * nodule size <6 mm - follow-up CT at 3-6 months, consider further follow-up at 2 and 4 years if stable * nodule size >=6 mm - follow-up CT at 3-6 months, subsequent management based on the most suspicious nodule(s) ACT 112: Positive. There are findings on this exam that require communication between the performing entity and the patient following Patient Test Result Information Act ([place] Act 112) guidelines. Electronically signed by: Nomi Vo M.D. 05/09/2023 12:58 PM Chest X-Ray 05/09/23 11:27 SINGLE VIEW CHEST CLINICAL HISTORY: Atypical chest pain FINDINGS: An AP, portable, upright chest radiograph is compared to study dated 05/07/2023. A 2-lead cardiac pacemaker is unchanged in position and partially obscures the left mid chest. The heart is enlarged noting atherosclerotic calcification of the thoracic aorta. The pulmonary vasculature is noncongested. Chronic interstitial thickening is similar to previous. There is mild bibasilar scarring/atelectasis. The lungs and pleural spaces are otherwise clear. No pneumothorax is seen. The skeletal structures are osteopenic. The bony thorax is grossly intact. IMPRESSION: 1. Cardiomegaly and cardiac pacemaker without radiographic evidence of congestive failure. 2. No airspace consolidation or large pleural effusion is identified. ACT 112: Negative or not required by law. Electronically signed by: Nomi Vo M.D. 05/09/2023 11:42 AM Medications Administered Home Medications cholecalciferol (vitamin D3) 25 mcg (1,000 unit) capsule (Vitamin D3) 1,000 unit PO DAILY 11/16/18 [History Confirmed 05/07/23] levothyroxine 50 mcg tablet See Rx Instructions .Route .COMPLEX 11/16/18 [History Confirmed 05/07/23] ondansetron 4 mg disintegrating tablet 4 mg PO Q8 PRN Nausea 11/16/18 [History Confirmed 05/07/23] simvastatin 20 mg tablet 20 mg PO HS 11/16/18 [History Confirmed 05/07/23] Lactobacillus acidophilus 10 billion cell capsule (Probiotic) 10,000 mmu cells PO DAILY 10/04/21 [History Confirmed 05/07/23] apixaban 5 mg tablet (Eliquis) 5 mg PO BID 10/04/21 [History Confirmed 05/07/23] lisinopril 10 mg-hydrochlorothiazide 12.5 mg tablet 1 tab PO DAILY 10/04/21 [History Confirmed 05/07/23] multivitamin 1 tab PO DAILY 10/04/21 [History Confirmed 05/07/23] Active Medications Acetaminophen (Acetaminophen 325 Mg Tab) 650 mg PO Q4H PRN PRN Reason: Pain or Fever Stop: 06/08/23 19:39 Al Hydrox/Mg Hydrox/Simethicone (Aluminum/Magnesium Susp 30 Ml Udc) 15 ml PO Q4H PRN PRN Reason: Dyspepsia Stop: 06/08/23 19:39 Acetaminophen (Ofirmev) 1,000 mg in 100 mls @ 400 mls/hr IV Q8H PRN PRN Reason: pain/fever Stop: 05/12/23 19:10 Magnesium Hydroxide (Magnesium Hydroxide Susp 30 Ml Udc) 30 ml PO Q12H PRN PRN Reason: Constipation Stop: 06/08/23 19:39 Ondansetron HCl (Ondansetron Inj 2 Mg/Ml 2 Ml Vial) 4 mg IV Q6H PRN PRN Reason: Nausea Stop: 06/08/23 19:39 Polyethylene Glycol (Polyethylene (Miralax) 17 Gm Pack) 17 gm PO DAILY PRN PRN Reason: Constipation Stop: 06/08/23 19:39 Coding Level of Care Code 86740 CRITICAL CARE 1ST 30-74M Diagnoses Pacemaker complications T82.9XXA Cardiac tamponade I31.4 Pericardial effusion I31.39 Dyslipidemia E78.5 GERD (gastroesophageal reflux disease) K21.9 Hypertension I10
[2023-05-09] MEDS ORDERED: ONDANSETRON INJ 2 MG/ML 2 ML VIAL IV PRN (19:40)
[2023-05-09] MEDS ORDERED: POLYETHYLENE (MIRALAX) 17 GM PACK PO PRN (19:40)
[2023-05-09] MEDS ORDERED: MAGNESIUM HYDROXIDE SUSP 30 ML UDC PO PRN (19:40)
[2023-05-09] MEDS ORDERED: ALUMINUM/MAGNESIUM SUSP 30 ML UDC PO PRN (19:40)
--- NOTE | 2023-05-09 19:45 | History & Physical Report ---
Date of Service May 09, 2023 Assessment & Plan (1) Cardiac tamponade: (2) Pericardial effusion: (3) Hypertension: (4) Dyslipidemia: Plan 82-year-old female presented to the ED today with complaints of chest pain with radiation to her back. Notes associated shortness of breath and lightheadedness. She did have a pacemaker placed on 05/07 for sick sinus syndrome. Chest CTA indicated moderate pericardial effusion with a possible lead rupture in the atrium. There was questionable tamponade physiology noted on the echo for which she was taken emergently to the [facility]. She underwent a pericardiocentesis and lead revision with reposition. Postprocedure an echo was repeated with improved EF and no tamponade. Effusion gradually decreasing in size. Initial ECHO demonstrated large right lateral, apical, and anterior pericardial effusion. She is status post 400 mL bloody drainage. Postprocedure echo with EF 40 to 45%. Dr. Perez aware of patient in ICU and recommends continuation evaluation of pericardial drain.PMH includes: pAF (takes Eliquis), HTN, HLD, history of vertigo and history of TIA. No leukocytosis, mild LUIS with creatinine 1.33. Initial troponin 207 trending down 176; will follow. Pt AAO x3 and able to have full meaningful conversation. She states that she does feel better than she did when she arrived today. She has a normal sinus rhythm and does have an A-line postprocedure with appropriate maps. She is on room air and appears in no apparent distress. Cardiac tamponade: Pericardial effusion: Recent pacer insertion s/p SSS: s/p percardiocentesis: Pacer placed by Dr. Perez on 05/07 Chest CTA indicated moderate pericardial effusion with a possible lead rupture in the atrium and underwent pericardiocentesis and lead revision with reposition Post procedure ECHO EF 40-45%; no tamponade. No leukocytosis Troponin 207--> 176; likely due to pericardial effusion; will continue to trend Effusion gradually decreasing in size ICU to manage Cardiology to follow LUIS: Creatinine 1.33; baseline 1.15-1.2 Hold nephrotoxic agents ICU to manage with fluid resuscitation pAF: Chronic stable Takes Eliquis; hold for now ICU to manage HTN: Chronic stable Takes lisinopril/hydrochlorothiazide Dyslipidemia: Chronic stable Takes simvastatin; continue Disposition: PCP: Dr. Ana Paula CODE STATUS: Full code VTE prophylaxis: Teds and SCDs for now I spent a total of 87 minutes coordinating, documenting, and providing care for this patient excluding time spent in the performance of separately billed services. All of the aforementioned completed while collaborating with the assigned attending physician for a full treatment plan. Please see their add endum for further details. Admission and Anticipated Discharge Date Admission Date: May 09, 2023 History of Present Illness Chief Complaint: Chest pain Primary Care Provider: Michele Goss MD 82-year-old female presented to the ED today with complaints of chest pain with radiation to her back. Notes associated shortness of breath and lightheadedness. She did have a pacemaker placed on 05/07 for sick sinus syndrome. Chest CTA indicated moderate pericardial effusion with a possible lead rupture in the atrium. There was questionable tamponade physiology noted on the echo for which she was taken emergently to the [facility]. She underwent a pericardiocentesis and lead revision with reposition. Postprocedure an echo was repeated with improved EF and no tamponade. Effusion gradually decreasing in size. Initial ECHO demonstrated large right lateral, apical, and anterior pericardial effusion. She is status post 400 mL bloody drainage. Postprocedure echo with EF 40 to 45%. Dr. Perez aware of patient in ICU and recommends continuation evaluation of pericardial drain. PMH includes: pAF (takes Eliquis), HTN, HLD, history of vertigo and TIA Pt AAO x3 and able to have full meaningful conversation. She states that she does feel better than she did when she arrived today. She has a normal sinus rhythm and does have an A-line postprocedure with appropriate maps. She is on room air and appears in no apparent distress. Patient will be admitted for further evaluation and management. Please see A/P for further details. Allergies Allergy/AdvReac Type Severity Reaction Status Date / Time amoxicillin Allergy Mild Rash Verified 05/07/23 11:33 bacitracin Allergy Mild RASH Verified 05/07/23 11:33 neomycin Allergy Mild RASH Verified 05/07/23 11:33 polymyxin B Allergy Mild RASH Verified 05/07/23 11:33 sulfamethoxazole Allergy Mild rash Verified 05/07/23 11:33 trimethoprim Allergy Mild rash Verified 05/07/23 11:33 Bactrim Allergy Unknown rash Verified 03/17/18 10:42 aspirin [From Aggrenox] Allergy Unknown Verified 05/07/23 11:33 dipyridamole [From Aggrenox] Allergy Unknown Verified 05/07/23 11:33 cyclobenzaprine AdvReac Severe sedation Verified 05/07/23 11:33 [From Flexeril] Home Medications Medication Instructions Recorded Confirmed Type cholecalciferol (vitamin D3) 25 1,000 unit PO DAILY 11/16/18 05/09/23 History mcg (1,000 unit) capsule (Vitamin D3) levothyroxine 50 mcg tablet See Rx Instructions .Route .COMPLEX 11/16/18 05/09/23 History ondansetron 4 mg disintegrating 4 mg PO Q8 PRN Nausea 11/16/18 05/09/23 History tablet simvastatin 20 mg tablet 20 mg PO HS 11/16/18 05/09/23 History Lactobacillus acidophilus 10 10,000 mmu cells PO DAILY 10/04/21 05/09/23 History billion cell capsule (Probiotic) apixaban 5 mg tablet (Eliquis) 5 mg PO BID 10/04/21 05/09/23 History lisinopril 10 1 tab PO DAILY 10/04/21 05/09/23 History mg-hydrochlorothiazide 12.5 mg tablet multivitamin 1 tab PO DAILY 10/04/21 05/09/23 History Past Med/Surg History Medical History Colitis HX GERD (gastroesophageal reflux disease) Hyperlipidemia Hypertension HX OF Hypothyroidism Osteoarthritis Temporomandibular joint disorder Urinary frequency DURING NIGHT TIME Vertigo Surgical History History of adenoidectomy History of arthroscopy KNEE History of breast biopsy History of cholecystectomy History of colonoscopy History of hysterectomy History of left knee replacement History of tonsillectomy History of tooth extraction History of total knee replacement LEFT Family History Grandfather (Paternal) Family history of diabetes mellitus Father Family hx colonic polyps Social History Smoking Status: Never smoker Second Hand Exposure: No; Do You Dip or Chew Tobacco: No; Tobacco Cessation Education Requested by Patient: No Hx Alcohol Use: Yes Alcohol type: wine Hx Substance Use: No Preferred Language: Mauritian Communication Ability: Effective Idea Worker Required: No Beliefs That Will Affect Care: Spiritual Current Living Situation: Spouse Other Information That Helps Us Care for You: No Feels Safe at Home: Yes Safety Concerns: Feels Safe At This Time Assistive Devices: Glasses Review of Systems Review of Systems: Neuro: (-) Falls, trauma, slurred speech HEENT: (-) JONES, dizziness, dysphagia, visual or auditory changes CV: (-) CP, palpitations, swelling Resp: (-) SOB GI: (-) appetite changes, N/V/D, bowel changes : (-) urinary changes Skin: (-) rashes Psych: (-) anxiety, depression Physical Exam Physical Exam: Neuro: AAOx4, PERRLA, no aphagia, memory changes, CNII-XII grossly intact HEENT: head normocephalic, moist mucus membranes CV: S1/S2, (-) M/G/R, (-) edema, cap refill < 3 seconds Resp: Lungs CTA in all torres. On RA GI: Abdomen S/NT/ND, Ax4 bowel sounds, (-) CVA tenderness Musculoskeletal: 5/5 B/L UE strength, 5/5 B/L LE strength. No gait disturbance Skin: (-) rashes , (-) erythema. Psych: euthymic mood Results & Data Results & Data Vital Signs (Past 12 Hours) Vital Signs Temp Pulse Pulse Resp BP BP Pulse Ox 05/09/23 18:46 161/63 H 05/09/23 18:46 81 24 05/09/23 18:45 81 20 05/09/23 18:30 88 23 05/09/23 18:30 159/71 H 05/09/23 18:20 81 22 05/09/23 18:18 36.5 C 81 20 160/48 H 95 05/09/23 14:26 90 19 137/84 97 05/09/23 14:00 74 19 129/76 100 05/09/23 13:30 72 14 105/77 100 05/09/23 13:00 68 14 107/77 100 05/09/23 12:00 83 19 95 05/09/23 12:01 70 05/09/23 11:38 98 05/09/23 11:38 80 20 98 05/09/23 11:38 98 05/09/23 11:11 36.5 C 87 20 98/74 L 99 O2 Del Method 05/09/23 18:46 05/09/23 18:46 05/09/23 18:45 05/09/23 18:30 05/09/23 18:30 05/09/23 18:20 05/09/23 18:18 Room Air 05/09/23 14:26 05/09/23 14:00 05/09/23 13:30 05/09/23 13:00 05/09/23 12:00 05/09/23 12:01 05/09/23 11:38 Room Air 05/09/23 11:38 Room Air 05/09/23 11:38 Room Air 05/09/23 11:11 Room Air Laboratory Results Short CBC 05/09/23 Range/Units 11:27 WBC 9.19 (4.8-10.8) K/ul Hgb 10.8 L (12.0-16.0) g/dl Hct 32.1 L (37.0-47.0) % Plt Count 229 (130-400) K/uL BMP 05/09/23 11:27 Sodium 137 Potassium 4.4 Chloride 103 Carbon Dioxide 24 BUN 33 H Creatinine 1.33 H Glucose 141 H Calcium 8.5 L Liver Function 05/09/23 Range/Units 11:27 Total Bilirubin 1.4 H (0.2-1.0) mg/dl AST 38 (13-39) U/L ALT 25 (7-52) U/L Alkaline Phosphatase 55 (34-104) U/L Albumin 4.1 (3.4-5.0) gm/dl Diagnostic Findings Chest CTA 05/09/23 11:27 CT ANGIOGRAM OF THE CHEST COMBO CLINICAL HISTORY: Atypical chest pain. Recent pacemaker implantation. COMPARISON STUDY: Chest x-ray dated 05/09/2023. Abdominal CT dated 12/30/2022. TECHNIQUE: Before and following the IV administration of 117 cc of Optiray 350, CT angiogram of the chest was performed from the thoracic inlet to the upper abdomen utilizing the dissection protocol. Images are reviewed in the axial, sagittal, and coronal planes. 3-D MIPS images are created and assessed. IV contrast was administered without complication. A dose lowering technique was utilized adhering to the principles of ALARA. CT DOSE: 581.91 mGy.cm FINDINGS: Thyroid: Imaged portions of the thyroid gland are normal in size and attenuation. Thoracic aorta: The thoracic aorta is normal in caliber and demonstrates standard 3-vessel arch anatomy. No dissection is seen. The arch vessels are widely patent. Pulmonary vasculature: The pulmonary trunk is normal in caliber. There are no filling defects identified in the main, lobar, or segmental pulmonary arteries t o indicate pulmonary embolus. Heart: The heart is enlarged. There is a moderate volume of hemopericardium. A 2-lead cardiac pacemaker is in place. Leads are noted in the right atrial appendage and right ventricle. The lead in the right atrial appendage closely approximates the myocardium and may extend into the pericardial space. This difficult to assess due to streak artifact. The coronary arteries are dense and calcified. Lungs and pleural spaces: There is no airspace consolidation, pleural effusion, or pneumothorax. The trachea and central airways are clear. Scattered calcific granulomas are observed. There are numerous (greater than 10) groundglass nodules scattered throughout both lungs. These measure up to 6 mm. Tooler nodules are seen in the right lower lobe on image #136, the right middle lobe on images #127, #132, and #153, and in the lingula on image #127. Mediastinum: There is no mediastinal lymphadenopathy. Jenae: Clear. Axillae: There is no axillary lymphadenopathy. Upper abdomen: Partially visualized upper abdominal viscera is within normal limits. Skeletal structures: The skeletal structures are osteopenic. Degenerative change and hyperkyphosis is noted in the thoracic spine. No lytic or blastic bony lesions are seen. Soft tissues: There are focus is a cutaneous gas and soft tissue induration identified in the left lower neck/anterior chest wall. This is likely due to recent pacemaker implantation. No organized fluid collection is seen. IMPRESSION: 1. Normal CT angiogram of the thoracic aorta. 2. Cardiomegaly with an implanted 2-lead cardiac pacemaker as above. 3. Moderate volume of hemopericardium, which is new from the 12/30/[address] The right atrial appendage lead closely approximates/may extend through the myocardial wall and into the pericardial space. Myocardial perforation is not excluded. 4. Subcutaneous gas and soft tissue induration is seen in the left lower neck/chest wall or in the pacemaker generator. This is likely related to the recent implantation. No contrast fluid collection is seen. 5. There is no airspace consolidation or pleural effusion. 6. There are numerous (greater than 10) groundglass nodules scattered throughout both lungs which measure up to 6 mm. These are pathologically indeterminant and should be followed as per the Fleischner criteria. See below. 7. There is no evidence of pulmonary embolus in the main, lobar, or segmental pulmonary arteries. 8. Additional findings as above. Please refer to below summary of Fleischner criteria recommendations for follow- up of incidental CT nodules (Sadia Avila, Guidelines for management of small pulmonary nodules detected on CT scans: A statement from the Fleischner Society, Radiology 237: [phone].) SOLID NODULES Solitary nodule size: <6 mm * low risk patients: no follow-up needed * high risk patients: optional CT at 12 months Solitary nodule size: 6-8 mm * low risk patients: follow-up at 6-12 months, then consider further follow-up at 18-24 months * high risk patients: initial follow-up CT at 6-12 months and then at 18-24 months if no change Solitary nodule size: >8 mm * either low or high risk patients - consider follow-up CT at 3 months, and/or CT-PET, and/or biopsy Multiple nodules size: <6 mm * low risk patients: no routine follow-up * high risk patients: optional CT at 12 months Multiple nodules size: 6-8 mm * low risk patients: follow-up at 3-6 months, then consider further follow-up at 18-24 months * high risk patients: follow-up at 3-6 months, then at 18-24 months if no change Multiple nodules size: >8 mm * low risk patients: follow-up at 3-6 months, then consider further follow-up at 18-24 months * high risk patients: follow-up at 3-6 months, then at 18-24 months if no change Note: newly detected indeterminate nodule in persons 35 years of age or older. * low risk patients: minimal or absent history of smoking and/or other known risk factors * high risk patients: history of smoking or of other known risk factors (e.g. first degree relative with lung cancer, or exposure to asbestos, radon, uranium) * if a nodule up to 8 mm is partly solid or is ground glass further follow-up is required after 24 months to exclude possible slow growing adenocarcinoma (PAT) SUBSOLID NODULES Solitary pure ground-glass nodule * nodule size <6 mm - no CT follow-up required * nodule size >=6 mm - follow-up CT at 6-12 months, then every 2 years until 5 years Solitary part-solid nodule * nodule size <6 mm - no CT follow-up required * nodule size >=6 mm - follow-up CT at 3-6 months. If unchanged, and solid component remains <6 mm, then annual follow-up for 5 years Multiple subsolid nodules * nodule size <6 mm - follow-up CT at 3-6 months, consider further follow-up at 2 and 4 years if stable * nodule size >=6 mm - follow-up CT at 3-6 months, subsequent management based on the most suspicious nodule(s) ACT 112: Positive. There are findings on this exam that require communication between the performing entity and the patient following Patient Test Result Information Act ([place] Act 112) guidelines. Electronically signed by: Nomi oV M.D. 05/09/2023 12:58 PM Chest X-Ray 05/09/23 11:27 SINGLE VIEW CHEST CLINICAL HISTORY: Atypical chest pain FINDINGS: An AP, portable, upright chest radiograph is compared to study dated 05/07/2023. A 2-lead cardiac pacemaker is unchanged in position and partially obscures the left mid chest. The heart is enlarged noting atherosclerotic calcification of the thoracic aorta. The pulmonary vasculature is noncongested. Chronic interstitial thickening is similar to previous. There is mild bibasilar scarring/atelectasis. The lungs and pleural spaces are otherwise clear. No pneumothorax is seen. The skeletal structures are osteopenic. The bony thorax is grossly intact. IMPRESSION: 1. Cardiomegaly and cardiac pacemaker without radiographic evidence of congestive failure. 2. No airspace consolidation or large pleural effusion is identified. ACT 112: Negative or not required by law. Electronically signed by: Nomi Vo M.D. 05/09/2023 11:42 AM Code Status & VTE Plan Code Status Full Code in the event of cardiac or respiratory arrest VTE Prophylaxis Plan VTE Prophylaxis will be ordered: Yes Supervising Physician Co-Signing Physician Notes I have seen and examined the patient and have discussed the case with the provider above. I agree with the assessment and plan as stated. 82-year-old female status post pacemaker placement with subsequent chest pain with radiation to her back with associated shortness of breath and lightheadedness admitted for complication of cardiac tamponade secondary to hemopericardium with malpositioned atrial pacemaker lead. She underwent pericardiocentesis with lead revision and repositioning in the [facility] this evening. Postprocedure echocardiogram revealed improved ejection fraction and no cardiac tamponade. She remains in ICU status after 400 cc of bloody drainage obtained. Additional drainage is planned periodically per cardiology instruction. Persistent chest pain is present and ICU planning for additional morphine. She is otherwise feeling fine without nausea or difficulty breathing at this time. She remains hypertensive but otherwise hemodynamically stable. She is oxygenating well on room air. She is then on exam with cardiac auscultation revealing S1-S2 heard with no evidence of murmur gallop or rub. She has clear lungs auscultation bilaterally. Abdomen is soft nontender nondistended. She has no gross focal neurologic muscular deficits. Reviewed diagnostics including CBC with mild anemia, hemoglobin 10.8. Normal c oag panel. Creatinine slightly elevated 1.33 but this is around her baseline. Chemistry panel is otherwise unremarkable. Total bilirubin slightly elevated with 1.4. Highly sensitive troponin trend is 207, 176, 411. Medications reviewed. Although patient is hypertensive with a BP 179/83 post procedure, this is likely related to pain. Agree with holding her lis/HCTZ in setting of her elevated risk for decompensation. Would prefer alternative IV antihypertensives as needed which are shorter acting. Defer this management to ICU team. Cont to hold Eliquis for now. Drain of hemopericardium PRN per direction of cardiology. DO Sadiq
[2023-05-09] MEDS: MoRPHine SULFATE 2 MG/ML CARP IV PRN (20:46)
[2023-05-09] MEDS ORDERED: PLASMA-LYTE A 1,000 ML IV ONE (20:49)
[2023-05-09] MEDS: ACETAMINOPHEN 325 MG TAB PO PRN (22:11)
[2023-05-09] MEDS: ACETAMINOPHEN 1,000 MG/100 ML VIAL IV PRN (22:47)
[2023-05-10] MEDS: MoRPHine SULFATE 2 MG/ML CARP IV PRN ×3 (00:28→20:34)
[2023-05-10 04:54] LABS: Hematocrit (blood only) 25.2 % (37.0-47.0); Hemoglobin 8.8 g/dl (12.0-16.0); Mean Corpuscular Hemoglobin 30.4 pg (25.0-34.0); Mean Corpuscular Hgb Conc 34.9 g/dL (32.0-36.0); Mean Corpuscular Volume 87.2 fL (80.0-100.0); Mean Platelet Volume 9.7 fL (9.4-12.4); Platelet Count 163 K/uL (130-400); RDW Coefficient of Variation 13.7 % (11.5-14.5); RDW Standard Deviation 42.7 fL (36.4-46.3); Red Blood Count 2.89 M/uL (4.20-5.40); White Blood Count 12.42 K/ul (4.8-10.8)
[2023-05-10 05:05] LABS: Albumin Globulin Ratio 1.5 (0.9-2); Albumin Level 3.4 gm/dl (3.4-5.0); Bilirubin,Total 1.4 mg/dl (0.2-1.0); Calcium 7.7 mg/dl (8.6-10.3); Creatinine Clr Calc Pharmacy 37.7 ml/min; Est GFR (African American) 60.8 ml/min; Est GFR (Non-African American) 52.4 ml/min; Globulin 2.2 gm/dl (2.5-4.0); Magnesium 1.9 mg/dl (1.7-2.4); Phosphorus 4.2 mg/dl (2.5-4.9); Potassium 3.9 mmol/L (3.5-5.1); Total Protein 5.6 gm/dl (6.0-8.3)
[2023-05-10] MEDS: LEVOTHYROXINE SODIUM 50 MCG TABLET PO SCH (05:09)
[2023-05-10] MEDS: ACETAMINOPHEN 325 MG TAB PO PRN ×2 (05:09→20:32)
[2023-05-10 05:13] LABS: Troponin I High Sensitivity 394.3 pg/ml (0-14)
--- NOTE | 2023-05-10 07:12 | XRay Report ---
XR chest 1V portable HISTORY: 82 years-old Female eval lung torres and heart boarders acute shortness of breath COMPARISON: 05/09/2023 TECHNIQUE: AP view of the chest FINDINGS: Status post removal of the left subclavian pacer. The cardiac silhouette is enlarged. A catheter proj ects over the heart and upper abdomen. Cholecystectomy. Atherosclerosis of the aorta. No pneumothorax . Small pleural effusions with mild subsegmental bibasilar densities. Degenerative changes of the chio ulders and spine. IMPRESSION: 1. Cardiomegaly with interval removal of the left subclavian pacer. 2. A catheter projects over the heart and upper abdomen. 3. Small pleural effusions with mild bibasilar atelectasis. ACT 112: Negative or not required by law. The above report was generated using voice recognition software. It may contain grammatical, syntax o r spelling errors. Electronically signed by: Leonidas Jara M.D. 05/10/2023 7:11 AM
--- NOTE | 2023-05-10 07:40 | Critical Care Progress Note ---
Date of Service May 10, 2023 Assessment & Plan (1) Cardiac tamponade: (2) Pericardial effusion: (3) Hypertension: (4) Dyslipidemia: Plan Reason Critically Ill: 82 YOF admitted to ICU following pericardiocentesis secondary to atrial pacemaker lead rupture. She is s/p 400 ml bloody drainage of pericardial effusion and extraction of pacemaker leads and device. ECHO following procedure is interpreted with EF 40-45% and resolved tamponade physiology. Neuro -Acute pain, HX of vertigo, TIA CAM ICU: NEGATIVE - Tylenol for pain, morphine if needed, avoid NSAIDS - maintain normal sleep wake cycles Cardiac -Pericardiocentesis, pacemaker extraction, complication from pacemaker, Occlusion of subclavia/axillary vein, PAF - Cardiology and EP cardiology following patient - drain remains in place to 3 way stop-cock to hemovac drain, draining serosang drainage - ECHO improved- repeat per cardiology for follow up/resolution - Follow hemodynamics- if decompensation- attempt to remove fluid from drain and provide colloid and vasopressors - Elevated HsCTNI likely demand in the setting of pericardial effusion, continue to trend - Hold Eliquis- appears to be on for PAF with hx of TIAs- full record review not available at this time - Venous Occlusion subclavia/axillary- 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- anticoagulation when able Respiratory - No acute needs GI - No acute needs - Not on PPI at home - Advance diet as tolerated RENAL/LYTES -CKD - RAMILA II on CKD III- 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 - avoid further nephrotoxic medications as able, if needed minimize exposure time - Provide crystalloid 1L overnight- - No acute needs ENDO -Hypothyroidism - Continue Synthroid HEME - No acute needs ID - No concern for infective process at this time LINES/IV ACCESS - PIV, arterial line Continue use of these lines DVT PROPHYLAXIS - SCDS - Hold chemoprophylaxis at this time secondary to atrial lead rupture DISPO: ICU until hemodynamics proven stable and removal of pericardial drain Admission and Anticipated Discharge Date Admission Date: May 09, 2023 Results & Data Results & Data Vital Signs (Past 12 Hours) Vital Signs Temp Pulse Resp BP Pulse Ox 05/10/23 06:00 75 18 128/58 L 97 05/10/23 05:00 79 19 125/65 98 05/10/23 04:00 78 22 120/58 L 99 05/10/23 03:47 36.4 C L 05/10/23 03:00 76 18 116/71 98 05/10/23 02:00 76 21 120/58 L 97 05/10/23 01:00 76 18 109/59 L 98 05/10/23 00:00 76 16 123/66 97 05/09/23 23:00 81 22 129/77 97 05/09/23 22:00 74 16 153/71 H 99 05/09/23 21:00 70 18 98 05/09/23 20:00 73 18 169/81 H 98 05/09/23 22:25 36.7 C 05/09/23 19:45 81 24 179/83 H 98
--- NOTE | 2023-05-10 07:41 | Hospitalist Progress Note ---
Date of Service May 10, 2023 Assessment & Plan (1) Cardiac tamponade: (2) Pericardial effusion: (3) Hypertension: (4) Dyslipidemia: Plan 82-year-old female presented to the ED today with complaints of chest pain with radiation to her back. Notes associated shortness of breath and lightheadedness. She did have a pacemaker placed on 05/07 for sick sinus syndrome. Chest CTA indicated moderate pericardial effusion with a possible lead rupture in the atrium. There was questionable tamponade physiology noted on the echo for which she was taken emergently to the [facility]. She underwent a pericardiocentesis and lead revision with reposition. Postprocedure an echo was repeated with improved EF and no tamponade. Effusion gradually decreasing in size. Initial ECHO demonstrated large right lateral, apical, and anterior pericardial effusion. She is status post 400 mL bloody drainage. Postprocedure echo with EF 40 to 45%. Dr. Perez aware of patient in ICU and recommends continuation evaluation of pericardial drain.PMH includes: pAF (takes Eliquis), HTN, HLD, history of vertigo and history of TIA. No leukocytosis, mild LUIS with creatinine 1.33. Initial troponin 207 trending down 176; will follow. Cardiac tamponade: Pericardial effusion: Recent pacer insertion s/p SSS: s/p pericardiocentesis and lead extraction: Pacer placed originally by Dr. Perez on 05/07 Chest CTA indicated moderate pericardial effusion with a possible lead rupture in the atrium and underwent pericardiocentesis and lead revision with reposition Post procedure ECHO EF 40-45%; no tamponade. No leukocytosis Troponin 207--> 176; likely due to pericardial effusion Effusion gradually decreasing in size Currently in ICU for further management. Cardiology following closely and discussed with (05/10) plan for repeat echo and possibly pericard. drain removal. LUIS: Creatinine 1.33; baseline 1.15-1.2 Hold nephrotoxic agents ICU to manage with fluid resuscitation pAF: Chronic stable Takes Eliquis; hold for now ICU to manage HTN: Chronic stable Takes lisinopril/hydrochlorothiazide Dyslipidemia: Chronic stable Takes simvastatin; continue Disposition: PCP: Dr. Goss CODE STATUS: Full code VTE prophylaxis: Teds and SCDs for now Admission and Anticipated Discharge Date Admission Date: May 09, 2023 Subjective Pt seen in follow up of R atrial ppm lead perforation, pericardial effusion, tamponade, now s/p pericardiocentesis and lead extraction Currently sitting up in bed in NAD Feeling much better overall , only complains with some chest discomfort when taking deep breath, back pain completely resolved She is breathing comfortably on RA No fever, chills, feeling dizzy or lightheaded Pt's at the bedside and updated Discussed w/ cardiology - plan to obtain echo to eval pericard. effusion and possibly remove drain Review of Systems Review of Systems: All systems reviewed & are unremarkable except as noted in Subjective Physical Exam Physical Exam: General: elderly thin F in NAD HEENT: head normocephalic, moist mucus membranes CV: S1/S2, (-) M/G/R, (-) edema,+pericard. drain Resp: Lungs CTA, On RA GI: Abdomen S/NT/ND, Ax4 bowel sounds Musculoskeletal: no LE edema, moves extremities Neuro: awake, alert, oriented, answers appropriately, no facial asymmetry, speech fluent, moves extremities Skin: (-) rashes , (-) erythema. Psych: euthymic mood Results & Data Results & Data Vital Signs (Past 12 Hours) Vital Signs Temp Pulse Resp BP Pulse Ox 05/10/23 06:00 75 18 128/58 L 97 05/10/23 05:00 79 19 125/65 98 05/10/23 04:00 78 22 120/58 L 99 05/10/23 03:47 36.4 C L 05/10/23 03:00 76 18 116/71 98 05/10/23 02:00 76 21 120/58 L 97 05/10/23 01:00 76 18 109/59 L 98 05/10/23 00:00 76 16 123/66 97 05/09/23 23:00 81 22 129/77 97 05/09/23 22:00 74 16 153/71 H 99 05/09/23 21:00 70 18 98 05/09/23 20:00 73 18 169/81 H 98 05/09/23 22:25 36.7 C 05/09/23 19:45 81 24 179/83 H 98 Laboratory Results 05/10/23 05/10/23 05/09/23 Range/Units 04:27 04:27 21:06 WBC 12.42 H (4.8-10.8) K/ul RBC 2.89 L (4.20-5.40) M/uL Hgb 8.8 L (12.0-16.0) g/dl Hct 25.2 L (37.0-47.0) % MCV 87.2 (80.0-100.0) fL MCH 30.4 (25.0-34.0) pg MCHC 34.9 (32.0-36.0) g/dL RDW Std Deviation 42.7 (36.4-46.3) fL RDW Coeff of [place] 13.7 (11.5-14.5) % Plt Count 163 (130-400) K/uL MPV 9.7 (9.4-12.4) fL Immature Gran % (Auto) % Neut % (Auto) % Lymph % (Auto) % [place] % (Auto) % Eos % (Auto) % Baso % (Auto) % Neut # (Auto) (1.40-6.50) K/uL Lymph # (Auto) (1.20-3.40) K/uL [place] # (Auto) (0.11-0.59) K/uL Eos # (Auto) (0.00-0.50) K/uL Baso # (Auto) (0.00-0.20) K/uL Immature Gran # (Auto) (0.01-0.20) K/uL PT INR APTT PTT Ratio Sodium 134 L (136-145) mmol/L Potassium 3.9 (3.5-5.1) mmol/L Chloride 105 (98-107) mmol/L Carbon Dioxide 21 (21-32) mmol/L Anion Gap 8 (3-11) BUN 31 H (6-23) mg/dl Creatinine 1.00 D (0.6-1.2) mg/dl Est Cr Clr Drug Dosing 37.7 ml/min Est GFR ( Amer) 60.8 ml/min Est GFR (Non-Af Amer) 52.4 ml/min BUN/Creatinine Ratio 31.0 H (10-20) Glucose 122 H (70-99(Fasting)) mg/dl Calcium 7.7 L (8.6-10.3) mg/dl Phosphorus 4.2 (2.5-4.9) mg/dl Magnesium 1.9 (1.7-2.4) mg/dl Total Bilirubin 1.4 H (0.2-1.0) mg/dl AST 31 (13-39) U/L ALT 37 (7-52) U/L Alkaline Phosphatase 63 (34-104) U/L Troponin I High Sens 394.3 H* 411.8 H* D (0-14) pg/ml Total Protein 5.6 L (6.0-8.3) gm/dl Albumin 3.4 (3.4-5.0) gm/dl Globulin 2.2 L (2.5-4.0) gm/dl Albumin/Globulin Ratio 1.5 (0.9-2) Lipase (11-82) U/L Nasal Screen MRSA (PCR) (Negative) 05/09/23 05/09/23 05/09/23 Range/Units 18:30 13:08 12:36 WBC (4.8-10.8) K/ul RBC (4.20-5.40) M/uL Hgb (12.0-16.0) g/dl Hct (37.0-47.0) % MCV (80.0-100.0) fL MCH (25.0-34.0) pg MCHC (32.0-36.0) g/dL RDW Std Deviation (36.4-46.3) fL RDW Coeff of [place] (11.5-14.5) % Plt Count (130-400) K/uL MPV (9.4-12.4) fL Immature Gran % (Auto) % Neut % (Auto) % Lymph % (Auto) % [place] % (Auto) % Eos % (Auto) % Baso % (Auto) % Neut # (Auto) (1.40-6.50) K/uL Lymph # (Auto) (1.20-3.40) K/uL [place] # (Auto) (0.11-0.59) K/uL Eos # (Auto) (0.00-0.50) K/uL Baso # (Auto) (0.00-0.20) K/uL Immature Gran # (Auto) (0.01-0.20) K/uL PT 12.1 H INR 1.1 APTT 26.2 PTT Ratio 0.9 Sodium (136-145) mmol/L Potassium (3.5-5.1) mmol/L Chloride (98-107) mmol/L Carbon Dioxide (21-32) mmol/L Anion Gap (3-11) BUN (6-23) mg/dl Creatinine (0.6-1.2) mg/dl Est Cr Clr Drug Dosing ml/min Est GFR ( Amer) ml/min Est GFR (Non-Af Amer) ml/min BUN/Creatinine Ratio (10-20) Glucose (70-99(Fasting)) mg/dl Calcium (8.6-10.3) mg/dl Phosphorus (2.5-4.9) mg/dl Magnesium (1.7-2.4) mg/dl Total Bilirubin (0.2-1.0) mg/dl AST (13-39) U/L ALT (7-52) U/L Alkaline Phosphatase (34-104) U/L Troponin I High Sens 176.3 H* (0-14) pg/ml Total Protein (6.0-8.3) gm/dl Albumin (3.4-5.0) gm/dl Globulin (2.5-4.0) gm/dl Albumin/Globulin Ratio (0.9-2) Lipase (11-82) U/L Nasal Screen MRSA (PCR) Negative (Negative) 05/09/23 05/09/23 05/09/23 Range/Units 11:27 11:27 11:27 WBC 9.19 (4.8-10.8) K/ul RBC 3.55 L (4.20-5.40) M/uL Hgb 10.8 L (12.0-16.0) g/dl Hct 32.1 L (37.0-47.0) % MCV 90.4 (80.0-100.0) fL MCH 30.4 (25.0-34.0) pg MCHC 33.6 (32.0-36.0) g/dL RDW Std Deviation 44.6 (36.4-46.3) fL RDW Coeff of [place] 13.6 (11.5-14.5) % Plt Count 229 (130-400) K/uL MPV 10.2 (9.4-12.4) fL Immature Gran % (Auto) 0.7 % Neut % (Auto) 78.1 % Lymph % (Auto) 14.1 % [place] % (Auto) 6.4 % Eos % (Auto) 0.3 % Baso % (Auto) 0.4 % Neut # (Auto) 7.17 H (1.40-6.50) K/uL Lymph # (Auto) 1.30 (1.20-3.40) K/uL [place] # (Auto) 0.59 (0.11-0.59) K/uL Eos # (Auto) 0.03 (0.00-0.50) K/uL Baso # (Auto) 0.04 (0.00-0.20) K/uL Immature Gran # (Auto) 0.06 (0.01-0.20) K/uL PT Cancelled INR Cancelled APTT Cancelled PTT Ratio Cancelled Sodium 137 (136-145) mmol/L Potassium 4.4 (3.5-5.1) mmol/L Chloride 103 (98-107) mmol/L Carbon Dioxide 24 (21-32) mmol/L Anion Gap 10 (3-11) BUN 33 H (6-23) mg/dl Creatinine 1.33 H (0.6-1.2) mg/dl Est Cr Clr Drug Dosing 30.5 ml/min Est GFR ( Amer) 43.0 ml/min Est GFR (Non-Af Amer) 37.1 ml/min BUN/Creatinine Ratio 24.8 H (10-20) Glucose 141 H (70-99(Fasting)) mg/dl Calcium 8.5 L (8.6-10.3) mg/dl Phosphorus (2.5-4.9) mg/dl Magnesium 2.1 (1.7-2.4) mg/dl Total Bilirubin 1.4 H (0.2-1.0) mg/dl AST 38 (13-39) U/L ALT 25 (7-52) U/L Alkaline Phosphatase 55 (34-104) U/L Troponin I High Sens 207.1 H* (0-14) pg/ml Total Protein 6.9 (6.0-8.3) gm/dl Albumin 4.1 (3.4-5.0) gm/dl Globulin 2.8 (2.5-4.0) gm/dl Albumin/Globulin Ratio 1.5 (0.9-2) Lipase 20 (11-82) U/L Nasal Screen MRSA (PCR) (Negative) Medications Administered Current Inpatient Medications Acetaminophen (Acetaminophen 325 Mg Tab) 650 mg PO Q4H PRN PRN Reason: Pain or Fever Stop: 06/08/23 19:39 Last Admin: 05/10/23 05:09 Dose: 650 mg Al Hydrox/Mg Hydrox/Simethicone (Aluminum/Magnesium Susp 30 Ml Udc) 15 ml PO Q4H PRN PRN Reason: Dyspepsia Stop: 06/08/23 19:39 Acetaminophen (Ofirmev) 1,000 mg in 100 mls @ 400 mls/hr IV Q8H PRN PRN Reason: pain/fever Stop: 05/12/23 19:10 Last Infusion: 05/10/23 02:02 Dose: Infused Parenteral Electrolytes (Plasma-Lyte A Ph 7.4) 1,000 mls @ 90 mls/hr IV .[id number] ONE Stop: 05/10/23 07:55 Last Admin: 05/09/23 22:10 Dose: 90 mls/hr Levothyroxine Sodium (Levothyroxine Sodium 50 Mcg Tablet) 50 mcg PO MoWeFrS a@[id number] [facility] Stop: 06/09/23 06:29 Last Admin: 05/10/23 05:09 Dose: 50 mcg Levothyroxine Sodium (Levothyroxine Sodium 100 Mcg Tablet) 100 mcg PO [id number] [facility] Stop: 06/10/23 06:29 Magnesium Hydroxide (Magnesium Hydroxide Susp 30 Ml Udc) 30 ml PO Q12H PRN PRN Reason: Constipation Stop: 06/08/23 19:39 Morphine Sulfate (Morphine Sulfate 2 Mg/Ml Carp) 2 mg IV Q4 PRN PRN Reason: Pain Stop: 05/23/23 20:29 Last Admin: 05/10/23 00:28 Dose: 2 mg Ondansetron HCl (Ondansetron Inj 2 Mg/Ml 2 Ml Vial) 4 mg IV Q6H PRN PRN Reason: Nausea Stop: 06/08/23 19:39 Polyethylene Glycol (Polyethylene (Miralax) 17 Gm Pack) 17 gm PO DAILY PRN PRN Reason: Constipation Stop: 06/08/23 19:39 Simvastatin (Simvastatin 20 Mg Tab) 20 mg PO HS [facility] Stop: 06/09/23 20:59
--- NOTE | 2023-05-10 08:42 | Critical Care Progress Note ---
Date of Service May 10, 2023 Assessment & Plan (1) Pacemaker complications: (2) Cardiac tamponade: (3) Pericardial effusion: (4) Dyslipidemia: (5) GERD (gastroesophageal reflux disease): (6) Hypertension: Plan Reason Critically Ill: 82 YOF admitted to ICU following pericardiocentesis secondary to atrial pacemaker lead rupture. She is s/p 400 ml bloody drainage of pericardial effusion and extraction of pacemaker leads and device. ECHO following procedure is interpreted with EF 40-45% and resolved tamponade physiology. Neuro -Acute pain, HX of vertigo, TIA CAM ICU: NEGATIVE - Tylenol for pain, morphine if needed, avoid NSAIDS - maintain normal sleep wake cycles Cardiac - Pericardiocentesis, pacemaker extraction, complication from pacemaker, Occlusion of subclavia/axillary vein, PAF - Cardiology and EP cardiology following patient - drain remains in place to 3 way stop-cock to hemovac drain, draining serosang drainage - ECHO improved- repeat per cardiology for follow up/resolution - Follow hemodynamics- if decompensation- attempt to remove fluid from drain and provide colloid and vasopressors - Elevated HsCTNI likely demand in the setting of pericardial effusion, continue to trend - Hold Eliquis until stable. 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 - No acute needs ENDO - Hypothyroidism - Continue Synthroid HEME - No acute needs ID - No concern for infective process at this time LINES/IV ACCESS - PIV, arterial line Continue use of these lines DVT PROPHYLAXIS - SCDS - Hold chemoprophylaxis at this time secondary to atrial lead rupture DISPO: ICU until hemodynamics proven stable and removal of pericardial drain Thank you for allowing us to be part of this patient's care. Please refer to Dr. Muniz's documentation for any further recommendations. Admission and Anticipated Discharge Date Admission Date: May 09, 2023 Supervising Physician Co-Signing Physician Notes Dr. Albright was resident physician during care of patient. I separately evaluated patient for freedman portions of the history and the exam. I was present during the critical portion of medical decision making, and I discussed the case with the resident. I generally agree with the findings and plan. Discussed with cardiology, awaiting echocardiogram, will likely proceed with drain removal today and then close observation for 24 hours to evaluate for any additional reaccumulation of pericardial fluid. Subjective Patient seen bedside this AM. Denies any issues or concerns. Only slight drainage at this time from pericardial drain. Review of Systems Review of Systems: All systems reviewed & are unremarkable except as noted in Subjective Physical Exam Physical Exam: General: awake, alert, no apparent distress Head: Normocephalic, atraumatic ENT: PERRLA, EOMI, no pharyngeal exudate, mucous membranes moist Neuro: AAO x 3, speech clear and appropriate, strength intact bilaterally 5/5, sensation intact and equal all extremities and dermatomes, no pronator drift Chest: equal rise and fall of the chest, no accessory muscle use, no heaves or thrills, Clear to auscultation, on room air, Cardiac: Regular rate and rhythm, telemetry reviewed- NSR no ectopy, skin warm dry, cap refill <3 seconds, peripheral pulses +2 no JVD, no murmur, no edema, radial arterial line in place with warm fingers and sensation intact, pericardial drain in place GI: NABS x 4 quadrants, soft, nontender to palpation, no rebound, guarding or tenderness : Spontaneously voiding, no pain, no CVA tenderness, Extremities: Normal inspection, no peripheral edema or erythema, calfs nontender to palpation Psych: Normal mood and affect Results & Data Results & Data Vital Signs (Past 12 Hours) Vital Signs Temp Pulse Resp BP Pulse Ox 05/10/23 06:00 75 18 128/58 L 97 05/10/23 05:00 79 19 125/65 98 05/10/23 04:00 78 22 120/58 L 99 05/10/23 03:47 36.4 C L 05/10/23 03:00 76 18 116/71 98 05/10/23 02:00 76 21 120/58 L 97 05/10/23 01:00 76 18 109/59 L 98 05/10/23 00:00 76 16 123/66 97 05/09/23 23:00 81 22 129/77 97 05/09/23 22:00 74 16 153/71 H 99 05/09/23 21:00 70 18 98 05/09/23 22:25 36.7 C Critical Care Results & Data Vital Signs (Past 12 Hours) Vital Signs Temp Pulse Resp BP Pulse Ox 05/10/23 06:00 75 18 128/58 L 97 05/10/23 05:00 79 19 125/65 98 05/10/23 04:00 78 22 120/58 L 99 05/10/23 03:47 36.4 C L 05/10/23 03:00 76 18 116/71 98 05/10/23 02:00 76 21 120/58 L 97 05/10/23 01:00 76 18 109/59 L 98 05/10/23 00:00 76 16 123/66 97 05/09/23 23:00 81 22 129/77 97 05/09/23 22:00 74 16 153/71 H 99 05/09/23 21:00 70 18 98 05/09/23 22:25 36.7 C Lab & Micro Results (Past 24 Hours) RBC 2.70 M/uL (4.20-5.40) L 05/11/23 WBC 7.00 K/ul (4.8-10.8) 05/11/23 Hgb 8.3 g/dl (12.0-16.0) L 05/11/23 Hct 24.0 % (37.0-47.0) L 05/11/23 MCV 88.9 fL (80.0-100.0) 05/11/23 MCH 30.7 pg (25.0-34.0) 05/11/23 MCHC 34.6 g/dL (32.0-36.0) 05/11/23 RDW Standard Deviation 45.3 fL (36.4-46.3) 05/11/23 RDW Coefficient of Variation 14.1 % (11.5-14.5) 05/11/23 Plt Count 154 K/uL (130-400) 05/11/23 MPV 9.7 fL (9.4-12.4) 05/11/23 Na 133 mmol/L (136-145) L 05/11/23 K 4.2 mmol/L (3.5-5.1) 05/11/23 Cl 103 mmol/L (98-107) 09/17/23 CO2 25 mmol/L (21-32) 05/11/23 Anion Gap 5 (3-11) 05/11/23 BUN 34 mg/dl (6-23) H 05/11/23 Creatinine 1.04 mg/dl (0.6-1.2) 05/11/23 Estimated GFR ( Amer) 57.9 ml/min 05/11/23 Estimated GFR (Non-Af Amer) 50.0 ml/min 05/11/23 BUN/Creatinine Ratio 32.7 (10-20) H 05/11/23 Glu 103 mg/dl (70-99(Fasting)) H 05/11/23 Ca 7.6 mg/dl (8.6-10.3) L 05/11/23 Phosphorus Level 2.6 mg/dl (2.5-4.9) 05/11/23 Mg 2.3 mg/dl (1.7-2.4) 05/11/23 04:15 Calcium Level 7.6 mg/dl (8.6-10.3) L 05/11/23 04:15 Diagnostic Findings (Past 24 Hours) Chest CTA 05/09/23 11:27 CT ANGIOGRAM OF THE CHEST COMBO CLINICAL HISTORY: Atypical chest pain. Recent pacemaker implantation. COMPARISON STUDY: Chest x-ray dated 05/09/2023. Abdominal CT dated 12/30/2022. TECHNIQUE: Before and following the IV administration of 117 cc of Optiray 350, CT angiogram of the chest was performed from the thoracic inlet to the upper abdomen utilizing the dissection protocol. Images are reviewed in the axial, sagittal, and coronal planes. 3-D MIPS images are created and assessed. IV contrast was administered without complication. A dose lowering technique was utilized adhering to the principles of ALARA. CT DOSE: 581.91 mGy.cm FINDINGS: Thyroid: Imaged portions of the thyroid gland are normal in size and attenuation. Thoracic aorta: The thoracic aorta is normal in caliber and demonstrates standard 3-vessel arch anatomy. No dissection is seen. The arch vessels are wi michel patent. Pulmonary vasculature: The pulmonary trunk is normal in caliber. There are no filling defects identified in the main, lobar, or segmental pulmonary arteries to indicate pulmonary embolus. Heart: The heart is enlarged. There is a moderate volume of hemopericardium. A 2-lead cardiac pacemaker is in place. Leads are noted in the right atrial appendage and right ventricle. The lead in the right atrial appendage closely approximates the myocardium and may extend into the pericardial space. This difficult to assess due to streak artifact. The coronary arteries are dense and calcified. Lungs and pleural spaces: There is no airspace consolidation, pleural effusion, or pneumothorax. The trachea and central airways are clear. Scattered calcific granulomas are observed. There are numerous (greater than 10) groundglass nodules scattered throughout both lungs. These measure up to 6 mm. Meter Repairer Helper nodules are seen in the right lower lobe on image #136, the right middle lobe on images #127, #132, and #153, and in the lingula on image #127. Mediastinum: There is no mediastinal lymphadenopathy. Jenae: Clear. Axillae: There is no axillary lymphadenopathy. Upper abdomen: Partially visualized upper abdominal viscera is within normal limits. Skeletal structures: The skeletal structures are osteopenic. Degenerative change and hyperkyphosis is noted in the thoracic spine. No lytic or blastic bony lesions are seen. Soft tissues: There are focus is a cutaneous gas and soft tissue induration identified in the left lower neck/anterior chest wall. This is likely due to recent pacemaker implantation. No organized fluid collection is seen. IMPRESSION: 1. Normal CT angiogram of the thoracic aorta. 2. Cardiomegaly with an implanted 2-lead cardiac pacemaker as above. 3. Moderate volume of hemopericardium, which is new from the 12/30/[address] The right atrial appendage lead closely approximates/may extend through the myocardial wall and into the pericardial space. Myocardial perforation is not excluded. 4. Subcutaneous gas and soft tissue induration is seen in the left lower neck/chest wall or in the pacemaker generator. This is likely related to the recent implantation. No contrast fluid collection is seen. 5. There is no airspace consolidation or pleural effusion. 6. There are numerous (greater than 10) groundglass nodules scattered throughout both lungs which measure up to 6 mm. These are pathologically indeterminant and should be followed as per the Fleischner criteria. See below. 7. There is no evidence of pulmonary embolus in the main, lobar, or segmental pulmonary arteries. 8. Additional findings as above. Please refer to below summary of Fleischner criteria recommendations for follow- up of incidental CT nodules (Sadia Avila, Guidelines for management of small pulmonary nodules detected on CT scans: A statement from the Fleischner Society, Radiology 237: [phone].) SOLID NODULES Solitary nodule size: <6 mm * low risk patients: no follow-up needed * high risk patients: optional CT at 12 months Solitary nodule size: 6-8 mm * low risk patients: follow-up at 6-12 months, then consider further follow-up at 18-24 months * high risk patients: initial follow-up CT at 6-12 months and then at 18-24 months if no change Solitary nodule size: >8 mm * either low or high risk patients - consider follow-up CT at 3 months, and/or CT-PET, and/or biopsy Multiple nodules size: <6 mm * low risk patients: no routine follow-up * high risk patients: optional CT at 12 months Multiple nodules size: 6-8 mm * low risk patients: follow-up at 3-6 months, then consider further follow-up at 18-24 months * high risk patients: follow-up at 3-6 months, then at 18-24 months if no change Multiple nodules size: >8 mm * low risk patients: follow-up at 3-6 months, then consider further follow-up at 18-24 months * high risk patients: follow-up at 3-6 months, then at 18-24 months if no change Note: newly detected indeterminate nodule in persons 35 years of age or older. * low risk patients: minimal or absent history of smoking and/or other known r isk factors * high risk patients: history of smoking or of other known risk factors (e.g. first degree relative with lung cancer, or exposure to asbestos, radon, uranium) * if a nodule up to 8 mm is partly solid or is ground glass further follow-up is required after 24 months to exclude possible slow growing adenocarcinoma (PAT) SUBSOLID NODULES Solitary pure ground-glass nodule * nodule size <6 mm - no CT follow-up required * nodule size >=6 mm - follow-up CT at 6-12 months, then every 2 years until 5 years Solitary part-solid nodule * nodule size <6 mm - no CT follow-up required * nodule size >=6 mm - follow-up CT at 3-6 months. If unchanged, and solid component remains <6 mm, then annual follow-up for 5 years Multiple subsolid nodules * nodule size <6 mm - follow-up CT at 3-6 months, consider further follow-up at 2 and 4 years if stable * nodule size >=6 mm - follow-up CT at 3-6 months, subsequent management based on the most suspicious nodule(s) ACT 112: Positive. There are findings on this exam that require communication between the performing entity and the patient following Patient Test Result Information Act ([place] Act 112) guidelines. Electronically signed by: Nomi Vo M.D. 05/09/2023 12:58 PM Chest X-Ray 05/09/23 11:27 SINGLE VIEW CHEST CLINICAL HISTORY: Atypical chest pain FINDINGS: An AP, portable, upright chest radiograph is compared to study dated 05/07/2023. A 2-lead cardiac pacemaker is unchanged in position and partially obscures the left mid chest. The heart is enlarged noting atherosclerotic calcification of the thoracic aorta. The pulmonary vasculature is noncongested. Chronic interstitial thickening is similar to previous. There is mild bibasilar scarring/atelectasis. The lungs and pleural spaces are otherwise clear. No pneumothorax is seen. The skeletal structures are osteopenic. The bony thorax is grossly intact. IMPRESSION: 1. Cardiomegaly and cardiac pacemaker without radiographic evidence of congestive failure. 2. No airspace consolidation or large pleural effusion is identified. ACT 112: Negative or not required by law. Electronically signed by: Nomi Vo M.D. 05/09/2023 11:42 AM Chest X-Ray 05/10/23 05:00 XR chest 1V portable HISTORY: 82 years-old Female eval lung torres and heart boarders acute shortness of breath COMPARISON: 05/09/2023 TECHNIQUE: AP view of the chest FINDINGS: Status post removal of the left subclavian pacer. The cardiac silhouette is enlarged. A catheter projects over the heart and upper abdomen. Cholecystectomy. Atherosclerosis of the aorta. No pneumothorax. Small pleural effusions with mild subsegmental bibasilar densities. Degenerative changes of the shoulders and spine. IMPRESSION: 1. Cardiomegaly with interval removal of the left subclavian pacer. 2. A catheter projects over the heart and upper abdomen. 3. Small pleural effusions with mild bibasilar atelectasis. ACT 112: Negative or not required by law. The above report was generated using voice recognition software. It may contain grammatical, syntax or spelling errors. Electronically signed by: Leonidas Jara M.D. 05/10/2023 7:11 AM I & O Totals 24 Hours 05/09/23 05/10/23 05/11/23 06:59 06:59 06:59 Intake Total 1000 / 1000 Output Total 615 / 615 Balance 385 / 385 Cumulative 05/09/23 10:53 thru 05/10/23 06:26 Intake Total 1000 Output Total 615 Balance 385 RT Ventilator Mngmt (Last Documented) Ventilator Ordered Settings Respiratory Rate 18 05/10/23 06:00 Ventilator - PT Measurements Respiratory Rate 18 Coding Level of Care Code 68600 SUB INP/OBS CARE 09/18MIN Diagnoses Pacemaker complications T82.9XXA Cardiac tamponade I31.4 Pericardial effusion I31.39 Dyslipidemia E78.5 GERD (gastroesophageal reflux disease) K21.9 Hypertension I10
--- NOTE | 2023-05-10 11:34 | Electrocardiogram Report ---
Test Reason : Blood Pressure : / mmHG Vent. Rate : 076 BPM Atrial Rate : 075 BPM P-R Int : 000 ms QRS Dur : 082 ms QT Int : 414 ms P-R-T Axes : 000 031 044 degrees QTc Int : 465 ms Sinus rhythm with frequent Premature atrial complexes Abnormal ECG When compared with ECG of 09-MAY-2023 11:11, Premature atrial complexes now present Otherwise no significant change Confirmed by Jony Graves ([id number]) on 05/10/2023 11:34:10 AM Referred By: REFERRED SELF Confirmed By:Jony Graves
--- NOTE | 2023-05-10 13:38 | Operative Report ---
Post Operative Report This is a POD 1 from pericardiocentesis. It drained 85cc overnight; echo this morning showed some reaccumulation of fluid. I just aspirated 90cc of serosanguineous fluid. dressing placed and connected back to suction. Will re- echo in the morning.
[2023-05-10] MEDS: ACETAMINOPHEN 1,000 MG/100 ML VIAL IV PRN (13:39)
--- NOTE | 2023-05-10 15:06 | Cardiology Progress Note ---
Date of Service May 10, 2023 Assessment & Plan (1) Pericardial effusion: (2) Cardiac tamponade: (3) Pacemaker complications: (4) Paroxysmal atrial fibrillation: Plan 82-year-old female status post pacemaker insertion on 05/07/2023 presenting on 05/09/2023 with lead perforation and pericardial effusion, impending tamponade. Patient underwent pericardiocentesis with improved hemodynamics. Pericardial catheter still in place with modest drainage Pacemaker attempted to be revised with difficult anatomy and device and leads were removed Currently hemodynamically stable. Complains of pleuritic pain on deep inspiration Plan: Keep pericardial catheter to suction overnight. Possible removal in a.m. Continue to hold lisinopril/hydrochlorothiazide, Eliquis Optimize electrolytes, keep potassium greater than 4 Follow hemoglobin and EKG in a.m. Consider adding colchicine once device removed. Note issues with chronic diarrhea prehospitalization Admission and Anticipated Discharge Date Admission Date: May 09, 2023 Subjective Patient was seen and examined, chart, medications, telemetry reviewed. No acute complaints other than pleuritic pain overnight. Pericardial catheter draining 85 cc overnight. Additional 90 cc removed manually this afternoon No fevers or chills No orthopnea or worsening edema Prior pacemaker site intact without bleeding Telemetry with brief run of atrial fibrillation this morning EKG sinus rhythm with premature atrial beats no ST elevation or ST segment abnormality Review of Systems Review of Systems: All systems reviewed & are unremarkable except as noted in Subjective Physical Exam Constitutional: + frail appearing; no acute distress Eyes: PERRL, conjunctivae normal, anicteric sclerae ENMT: external ear and nose normal, oropharynx normal Neck: trachea midline, no thyromegaly Respiratory: Auscultation: lungs clear to auscultation bilaterally Cardiovascular: Rate/Rhythm: regular rate and regular rhythm Results & Data Vital Signs (Past 12 Hours) Vital Signs Temp Pulse Resp BP Pulse Ox O2 Del Method 05/10/23 13:19 128/78 05/10/23 13:19 88 18 05/10/23 13:00 87 22 05/10/23 12:00 77 20 05/10/23 11:00 85 21 05/10/23 10:00 78 21 99 05/10/23 10:00 120/60 05/10/23 12:14 36.8 C 05/10/23 09:00 77 16 99 09/16/23 09:00 113/67 05/10/23 08:00 82 21 99 Room Air 05/10/23 08:00 124/64 05/10/23 07:00 84 20 96 05/10/23 07:00 134/64 05/10/23 08:00 36.7 C 05/10/23 08:00 Room Air 05/10/23 06:00 75 18 128/58 L 97 05/10/23 05:00 79 19 125/65 98 05/10/23 04:00 78 22 120/58 L 99 05/10/23 03:47 36.4 C L Laboratory Results Laboratory Results - last 24 hr 05/09/23 05/09/23 05/10/23 18:30 21:06 04:27 WBC 12.42 H RBC 2.89 L Hgb 8.8 L Hct 25.2 L MCV 87.2 MCH 30.4 MCHC 34.9 RDW Std Deviation 42.7 RDW Coeff of [place] 13.7 Plt Count 163 MPV 9.7 Sodium Potassium Chloride Carbon Dioxide Anion Gap BUN Creatinine Est Cr Clr Drug Dosing Est GFR ( Amer) Est GFR (Non-Af Amer) BUN/Creatinine Ratio Glucose Calcium Phosphorus Magnesium Total Bilirubin AST ALT Alkaline Phosphatase Troponin I High Sens 411.8 H* D Total Protein Albumin Globulin Albumin/Globulin Ratio Nasal Screen MRSA (PCR) Negative 05/10/23 04:27 WBC RBC Hgb Hct MCV MCH MCHC RDW Std Deviation RDW Coeff of [place] Plt Count MPV Sodium 134 L Potassium 3.9 Chloride 105 Carbon Dioxide 21 Anion Gap 8 BUN 31 H Creatinine 1.00 D Est Cr Clr Drug Dosing 37.7 Est GFR ( Amer) 60.8 Est GFR (Non-Af Amer) 52.4 BUN/Creatinine Ratio 31.0 H Glucose 122 H Calcium 7.7 L Phosphorus 4.2 Magnesium 1.9 Total Bilirubin 1.4 H AST 31 ALT 37 Alkaline Phosphatase 63 Troponin I High Sens 394.3 H* Total Protein 5.6 L Albumin 3.4 Globulin 2.2 L Albumin/Globulin Ratio 1.5 Nasal Screen MRSA (PCR)
[2023-05-10] MEDS ORDERED: POTASSIUM CHLORIDE CRTAB 20 MEQ TABCR PO ONE (15:16)
[2023-05-10] MEDS: SIMVASTATIN 20 MG TAB PO SCH (20:31)
[2023-05-10] MEDS ORDERED: COLCHICINE 0.6 MG TAB PO SCH (21:00)
[2023-05-11 04:52] LABS: Hemoglobin 8.3 g/dl (12.0-16.0); Mean Corpuscular Hemoglobin 30.7 pg (25.0-34.0); Mean Corpuscular Hgb Conc 34.6 g/dL (32.0-36.0); Mean Corpuscular Volume 88.9 fL (80.0-100.0); Mean Platelet Volume 9.7 fL (9.4-12.4); Platelet Count 154 K/uL (130-400); RDW Coefficient of Variation 14.1 % (11.5-14.5); RDW Standard Deviation 45.3 fL (36.4-46.3)
[2023-05-11 05:33] LABS: BUN Creatinine Ratio 32.7 (10-20); Calcium 7.6 mg/dl (8.6-10.3); Creatinine Clr Calc Pharmacy 36.3 ml/min; Est GFR (African American) 57.9 ml/min; Magnesium 2.3 mg/dl (1.7-2.4); Phosphorus 2.6 mg/dl (2.5-4.9); Potassium 4.2 mmol/L (3.5-5.1)
[2023-05-11] MEDS ORDERED: LEVOTHYROXINE SODIUM 100 MCG TABLET PO SCH (06:30)
--- NOTE | 2023-05-11 08:30 | Electrocardiogram Report ---
Test Reason : Blood Pressure : / mmHG Vent. Rate : 072 BPM Atrial Rate : 277 BPM P-R Int : 000 ms QRS Dur : 088 ms QT Int : 426 ms P-R-T Axes : 000 024 040 degrees QTc Int : 466 ms Sinus rhythm Abnormal ECG When compared with ECG of 10-MAY-2023 06:59, Premature atrial complexes no longer present Confirmed by Jony Graves ([id number]) on 05/11/2023 8:29:42 AM Referred By: REFERRED SELF Confirmed By:Jony Graves
--- NOTE | 2023-05-11 13:21 | Hospitalist Progress Note ---
Date of Service May 11, 2023 Assessment & Plan (1) Cardiac tamponade: (2) Pericardial effusion: (3) Hypertension: (4) Dyslipidemia: Plan 82-year-old female presented to the ED today with complaints of chest pain with radiation to her back. Notes associated shortness of breath and lightheadedness. She did have a pacemaker placed on 05/07 for sick sinus syndrome. Chest CTA indicated moderate pericardial effusion with a possible lead rupture in the atrium. There was questionable tamponade physiology noted on the echo for which she was taken emergently to the Toilet Attendant. She underwent a pericardiocentesis and lead revision with reposition. Postprocedure an echo was repeated with improved EF and no tamponade. Effusion gradually decreasing in size. Initial ECHO demonstrated large right lateral, apical, and anterior pericardial effusion. She is status post 400 mL bloody drainage. Postprocedure echo with EF 40 to 45%. Dr. Perez aware of patient in ICU and recommends continuation evaluation of pericardial drain.PMH includes: pAF (takes Eliquis), HTN, HLD, history of vertigo and history of TIA. No leukocytosis, mild LUIS with creatinine 1.33. Initial troponin 207 trending down 176; will follow. Cardiac tamponade: Pericardial effusion: Recent pacer insertion s/p SSS: s/p pericardiocentesis and lead extraction: Pacer placed originally by Dr. Perez on 05/07 Chest CTA indicated moderate pericardial effusion with a possible lead rupture in the atrium and underwent pericardiocentesis and lead revision with reposition Post procedure ECHO EF 40-45%; no tamponade. No leukocytosis Troponin 207--> 176; likely due to pericardial effusion Effusion gradually decreasing in size Currently in ICU for further management. Cardiology following closely and discussed with (05/10) plan for repeat echo and possibly pericard. drain removal. 05/11 - drain removed. Pt is feeling well, denies any chest pain. Cont. to closely monitor. LUIS: Creatinine 1.33; baseline 1.15-1.2 Hold nephrotoxic agents ICU to manage with fluid resuscitation pAF: Chronic stable Takes Eliquis; hold for now ICU to manage HTN: Chronic stable Takes lisinopril/hydrochlorothiazide Dyslipidemia: Chronic stable Takes simvastatin; continue Disposition: PCP: Dr. Goss CODE STATUS: Full code VTE prophylaxis: Teds and SCDs for now Admission and Anticipated Discharge Date Admission Date: May 09, 2023 Subjective Pt seen in follow up of R atrial ppm lead perforation, pericardial effusion, tamponade, now s/p pericardiocentesis and lead extraction Discussed w/ cardiology earlier - plan to obtain echo to eval pericard. effusion and possibly remove drain Currently sitting up in bed in NAD Feeling much better overall , pleuritic chest pain seems resolved as well. She is breathing comfortably on RA The drain pulled out earlier today by intervent. cardiology No fever, chills, feeling dizzy or lightheaded Review of Systems Review of Systems: All systems reviewed & are unremarkable except as noted in Subjective Physical Exam Physical Exam: General: elderly thin F in NAD HEENT: head normocephalic, moist mucus membranes CV: S1/S2, (-) M/G/R, (-) edema,+pericard. drain Resp: Lungs CTA, On RA GI: Abdomen S/NT/ND, Ax4 bowel sounds Musculoskeletal: no LE edema, moves extremities Neuro: awake, alert, oriented, answers appropriately, no facial asymmetry, speech fluent, moves extremities Skin: (-) rashes , (-) erythema. Psych: euthymic mood Results & Data Results & Data Vital Signs (Past 12 Hours) Vital Signs Temp Pulse Resp BP BP Pulse Ox O2 Del Method 05/11/23 12:00 36.6 C 130/64 05/11/23 12:00 81 16 05/11/23 11:27 76 05/11/23 11:00 127 H 24 96 Room Air 05/11/23 11:00 131/81 05/11/23 10:01 128/69 05/11/23 10:01 70 16 05/11/23 10:00 68 16 05/11/23 09:00 130/73 97 Room Air 05/11/23 09:00 73 20 05/11/23 08:00 135 H 20 05/11/23 08:00 Room Air 05/11/23 08:00 36.5 C 05/11/23 04:00 73 17 131/56 L 95 05/11/23 03:00 69 14 121/64 95 05/11/23 02:10 80 17 98 05/11/23 02:00 79 24 125/89 99 Laboratory Results 05/11/23 05/11/23 05/10/23 Range/Units 04:15 04:15 16:26 WBC 7.00 (4.8-10.8) K/ul RBC 2.70 L (4.20-5.40) M/uL Hgb 8.3 L (12.0-16.0) g/dl Hct 24.0 L (37.0-47.0) % MCV 88.9 (80.0-100.0) fL MCH 30.7 (25.0-34.0) pg MCHC 34.6 (32.0-36.0) g/dL RDW Std Deviation 45.3 (36.4-46.3) fL RDW Coeff of [place] 14.1 (11.5-14.5) % Plt Count 154 (130-400) K/uL MPV 9.7 (9.4-12.4) fL Sodium 133 L (136-145) mmol/L Potassium 4.2 (3.5-5.1) mmol/L Chloride 103 (98-107) mmol/L Carbon Dioxide 25 (21-32) mmol/L Anion Gap 5 (3-11) BUN 34 H (6-23) mg/dl Creatinine 1.04 (0.6-1.2) mg/dl Est Cr Clr Drug Dosing 36.3 ml/min Est GFR ( Amer) 57.9 ml/min Est GFR (Non-Af Amer) 50.0 ml/min BUN/Creatinine Ratio 32.7 H (10-20) Glucose 103 H (70-99(Fasting)) mg/dl POC Glucose 124 H (70-99) mg/dl Calcium 7.6 L (8.6-10.3) mg/dl Phosphorus 2.6 D (2.5-4.9) mg/dl Magnesium 2.3 (1.7-2.4) mg/dl Medications Administered Current Inpatient Medications Acetaminophen (Acetaminophen 325 Mg Tab) 650 mg PO Q4H PRN PRN Reason: Pain or Fever Stop: 06/08/23 19:39 Last Admin: 05/10/23 20:32 Dose: 650 mg Al Hydrox/Mg Hydrox/Simethicone (Aluminum/Magnesium Susp 30 Ml Udc) 15 ml PO Q4H PRN PRN Reason: Dyspepsia Stop: 06/08/23 19:39 Acetaminophen (Ofirmev) 1,000 mg in 100 mls @ 400 mls/hr IV Q8H PRN PRN Reason: pain/fever Stop: 05/12/23 19:10 Last Infusion: 05/10/23 13:54 Dose: Infused Levothyroxine Sodium (Levothyroxine Sodium 50 Mcg Tablet) 50 mcg PO [email or web address] [facility] Stop: 06/09/23 06:29 Last Admin: 05/10/23 05:09 Dose: 50 mcg Levothyroxine Sodium (Levothyroxine Sodium 100 Mcg Tablet) 100 mcg PO [email or web address] [facility] Stop: 06/10/23 06:29 Last Admin: 05/11/23 05:17 Dose: 100 mcg Magnesium Hydroxide (Magnesium Hydroxide Susp 30 Ml Udc) 30 ml PO Q12H PRN PRN Reason: Constipation Stop: 06/08/23 19:39 Morphine Sulfate (Morphine Sulfate 2 Mg/Ml Carp) 2 mg IV Q4 PRN PRN Reason: Pain Stop: 05/23/23 20:29 Last Admin: 05/10/23 20:34 Dose: 2 mg Ondansetron HCl (Ondansetron Inj 2 Mg/Ml 2 Ml Vial) 4 mg IV Q6H PRN PRN Reason: Nausea Stop: 06/08/23 19:39 Polyethylene Glycol (Polyethylene (Miralax) 17 Gm Pack) 17 gm PO DAILY PRN PRN Reason: Constipation Stop: 06/08/23 19:39 Simvastatin (Simvastatin 20 Mg Tab) 20 mg PO HS [facility] Stop: 06/09/23 20:59 Last Admin: 05/10/23 20:31 Dose: 20 mg
--- NOTE | 2023-05-11 13:52 | Communication Note ---
Date of Service: May 11, 2023 Patient seen at bedside today. She looks well and denies any chest pain, shortness of breath. Vital signs stable on home medications. Eliquis remains on hold. Left radial A-line removed yesterday. Yesterday a total of 185 mL red fluid removed from pericardial drain. An additional 200 mL of nonbloody, serosanguineous fluid over the last 24 hours. Repeat limited echo reviewed today. At most trace residual pericardial effusion. RA/RV well-expanded. Pericardial drain and 6 Fr sheath removed without issue. Plan for repeat limited echo tomorrow.
--- NOTE | 2023-05-11 14:16 | Cardiology Progress Note ---
Date of Service May 11, 2023 Assessment & Plan (1) Pericardial effusion: (2) Cardiac tamponade: (3) Pacemaker complications: (4) Paroxysmal atrial fibrillation: Plan 82-year-old female status post pacemaker insertion on 05/07/2023 presenting on 05/09/2023 with lead perforation and pericardial effusion, impending tamponade. Patient underwent pericardiocentesis with improved hemodynamics. Pericardial catheter still in place with modest drainage Pacemaker attempted to be revised with difficult anatomy and device and leads were removed Currently hemodynamically stable. Plan: Pericardial catheter removed today. Repeat echocardiogram for am Holding on colchicine due to difficulties with chronic diarrhea Admission and Anticipated Discharge Date Admission Date: May 09, 2023 Subjective Patient seen and examined, chart, medications, telemetry reviewed. Minimal effusion on echocardiogram this morning and pericardial catheter removed No chest pains or discomfort other than minimal pleuritic pain prior to catheter removal. Pacemaker site healing well. Patient remaining hemodynamically stable No arrhythmias or pauses on telemetry Review of Systems Review of Systems: All systems reviewed & are unremarkable except as noted in Subjective Physical Exam Constitutional: + frail appearing; no acute distress Eyes: PERRL, conjunctivae normal, anicteric sclerae ENMT: external ear and nose normal, oropharynx normal Neck: trachea midline, no thyromegaly Respiratory: Auscultation: lungs clear to auscultation bilaterally Cardiovascular: Rate/Rhythm: regular rate and regular rhythm Results & Data Vital Signs (Past 12 Hours) Vital Signs Temp Pulse Resp BP BP Pulse Ox O2 Del Method 05/11/23 12:00 36.6 C 130/64 05/11/23 12:00 81 16 05/11/23 11:27 76 05/11/23 11:00 127 H 24 96 Room Air 05/11/23 11:00 131/81 05/11/23 10:01 128/69 05/11/23 10:01 70 16 05/11/23 10:00 68 16 05/11/23 09:00 130/73 97 Room Air 05/11/23 09:00 73 20 05/11/23 08:00 135 H 20 05/11/23 08:00 Room Air 05/11/23 08:00 36.5 C 05/11/23 04:00 73 17 131/56 L 95 05/11/23 03:00 69 14 121/64 95 Laboratory Results Laboratory Results - last 24 hr 05/10/23 05/11/23 05/11/23 16:26 04:15 04:15 WBC 7.00 RBC 2.70 L Hgb 8.3 L Hct 24.0 L MCV 88.9 MCH 30.7 MCHC 34.6 RDW Std Deviation 45.3 RDW Coeff of [place] 14.1 Plt Count 154 MPV 9.7 Sodium 133 L Potassium 4.2 Chloride 103 Carbon Dioxide 25 Anion Gap 5 BUN 34 H Creatinine 1.04 Est Cr Clr Drug Dosing 36.3 Est GFR ( Amer) 57.9 Est GFR (Non-Af Amer) 50.0 BUN/Creatinine Ratio 32.7 H Glucose 103 H POC Glucose 124 H Calcium 7.6 L Phosphorus 2.6 D Magnesium 2.3
[2023-05-11] MEDS: SIMVASTATIN 20 MG TAB PO SCH (20:53)
[2023-05-12 04:41] LABS: Hematocrit (blood only) 25.6 % (37.0-47.0); Hemoglobin 8.8 g/dl (12.0-16.0); Mean Corpuscular Hemoglobin 30.2 pg (25.0-34.0); Mean Corpuscular Hgb Conc 34.4 g/dL (32.0-36.0); Mean Platelet Volume 9.4 fL (9.4-12.4); Platelet Count 179 K/uL (130-400); RDW Coefficient of Variation 13.9 % (11.5-14.5); RDW Standard Deviation 44.6 fL (36.4-46.3); Red Blood Count 2.91 M/uL (4.20-5.40); White Blood Count 4.58 K/ul (4.8-10.8)
[2023-05-12 04:55] LABS: BUN Creatinine Ratio 28.3 (10-20); Est GFR (African American) 67.2 ml/min; Magnesium 2.5 mg/dl (1.7-2.4); Phosphorus 2.1 mg/dl (2.5-4.9); Potassium 4.1 mmol/L (3.5-5.1)
[2023-05-12] MEDS: LEVOTHYROXINE SODIUM 50 MCG TABLET PO SCH (06:16)
[2023-05-12] MEDS ORDERED: POTASSIUM PHOS 3 MMOL/1 ML INFUSION IV STA (07:52)
[2023-05-12] MEDS ORDERED: POTASSIUM PHOSPHATE 15 MMOL in SODIUM CHLORIDE 0.9% 250 ML IV ONE (08:00)
--- NOTE | 2023-05-12 08:07 | Critical Care Progress Note ---
Date of Service May 12, 2023 Assessment & Plan Admission and Anticipated Discharge Date Admission Date: May 09, 2023 Results & Data Results & Data Vital Signs (Past 12 Hours) Vital Signs Temp Pulse Resp BP Pulse Ox 05/12/23 07:52 90 05/12/23 06:00 73 13 148/74 H 99 05/12/23 05:00 76 17 140/69 94 05/12/23 04:30 70 21 136/70 97 05/12/23 04:00 70 17 139/69 05/12/23 03:00 89 20 142/75 H 05/12/23 02:00 96 H 27 H 05/12/23 01:47 111 H 32 H 181/92 H 97 05/12/23 01:35 122 H 26 H 143/120 H 05/12/23 01:00 79 13 100/54 L 05/12/23 01:30 37.3 C 05/12/23 00:00 85 18 130/69 97 05/11/23 23:00 71 17 122/58 L 94 05/12/23 00:52 76 05/11/23 22:00 71 20 129/65 97 05/11/23 22:24 36.8 C Coding Diagnoses
--- NOTE | 2023-05-12 08:34 | Critical Care Progress Note ---
Date of Service May 12, 2023 Assessment & Plan (1) Pacemaker complications: (2) Cardiac tamponade: (3) Pericardial effusion: (4) Dyslipidemia: (5) GERD (gastroesophageal reflux disease): (6) Hypertension: (7) Tachyarrhythmia: (8) Paroxysmal atrial fibrillation: Plan Reason Critically Ill: 82 YOF admitted to ICU following pericardiocentesis secondary to atrial pacemaker lead rupture. She is s/p 400 ml bloody drainage of pericardial effusion and extraction of pacemaker leads and device. ECHO following procedure is interpreted with EF 40-45% and resolved tamponade physiology. Neuro -Acute pain, HX of vertigo, TIA CAM ICU: NEGATIVE - Tylenol for pain, morphine if needed, avoid NSAIDS - maintain normal sleep wake cycles Cardiac - Pericardiocentesis, pacemaker extraction, complication from pacemaker, Occlusion of subclavia/axillary vein, PAF - Cardiology and EP cardiology following patient - drain removed 05/11 - Follow up TTE today for surveillance - Venous Occlusion subclavia/axillary- per venogram in [employer]- anticoagulation when able Respiratory - No acute needs GI - No acute needs - Not on PPI at home - Advance diet as tolerated - Imodium PRN RENAL/LYTES - CKD - LUIS resolved - Replete electrolytes as indicated - No acute needs ENDO - Hypothyroidism - Continue Synthroid HEME - No acute needs ID - No concern for infective process at this time LINES/IV ACCESS - PIV DVT PROPHYLAXIS - SCDS - Defer reinitiation of Eliquis to EP and primary DISPO: Stable for DC from ICU. Dispo per primary and specialists Thank you for allowing us to be part of this patient's care. Please refer to attending physician documentation for any further recommendations. Addendum: Patient into atrial fibrillation for < 10 minutes this AM. Asymptom atic. Otherweise stable. Reverted to Sinus without intervention. Patient is stable for DC from ICU, recommend continued telemetry monitoring and disposition per Cardiology and Hospitalist team. Discussed on rounds with Dr. Linda. Admission and Anticipated Discharge Date Admission Date: May 09, 2023 Supervising Physician Co-Signing Physician Notes I saw and evaluated the patient with Amber Back PA-C and agree with findings and plan as documented in the note. Patient seen and examined at bedside. No acute distress, no adverse events overnight. Patient has chronic history of diarrhea she does complain of diarrhea. We will start Imodium. Denies any chest pain. No dizziness. No nausea vomiting. Appetite is fair. Heart rate was in the mid to high 80s at the time of examination of her systolic blood pressure in the 110s. Denied any headache. Constitutional: No acute distress HEENT: EOMI, PERRLA Respiratory system: Good air entry bilaterally, no wheeze, no rhonchi, no crackles CVS: S1-S2 positive, no murmurs or gallops Abdomen: Soft, nontender, nondistended, positive bowel sounds x4 Extremities: +2 pulses bilaterally radialis/ dorsalis pedis, no cyanosis, no edema Neuro: Awake alert oriented x3 Psych: Normal mood and affect G/U: No Joseph --Prophylaxis VTE: IPC GI: None Lines: Peripheral Diet: Cardiac Plan: In/out: -1 L, urine output 1851 Phosphorus being replaced. Patient is hemodynamically stable to be downgraded to telemetry floor. Patient did have bouts of A-fib RVR with heart rate in the 120s overnight. Given the history of tacky-bradycardia syndrome starting beta-blockers would need close monitoring. I will defer starting beta-blockers as well as anticoagulation to the cardiology team. Please note the above document was generated using voice recognition software. It may contain grammatical, syntax or spelling errors.Any formal questions or concerns about the content, text or information contained within the body of this dictation should be directly addressed to the provider for clarification. Subjective Pleasant 77YO F admitted with pericardial effusion 2/2 atrial lead rupture now s/p pericardial drain placement and subsequent removal. Surveillence TTE is pending this AM. Overnight events - patient awoke diaphoretic, tachycardic, hypertensive, and with abdominal pain. Improved with passing of gas. POCUS performed ruling out reaccumulation of effusion as etiology. This AM patient is AAOx4. Up in chair, pleasant and conversant. Hemodynamically stable, afebrile. Denies BM since admission. Review of Systems Review of Systems: REVIEW OF SYSTEMS: Constitutional: No fever, sweats or chills Eyes: No diplopia, no worsening or blurred vision ENT: normal hearing, no trouble swallowing Respiratory: No cough, sputum Cardiovascular: No chest pain, tightness or palpitations Abdomen: No pain, nausea, vomiting, diarrhea or constipation Musculoskeletal: No joint pain, calf pain, swelling Neurologic: No weakness, numbness/tingling Psychiatric: No anxiety or depression Skin: No rash or itch Physical Exam Constitutional: WD/WN, vitals as above Eyes: PERRL, conjunctivae normal, anicteric sclerae ENMT: external ear and nose normal, oropharynx normal Neck: trachea midline, no thyromegaly Respiratory: normal respiratory effort, lungs clear to auscultation Cardiovascular: Rate/Rhythm: regular rate and regular rhythm Gastrointestinal (Abdomen): normal bowel sounds, soft, nontender, no hepatosplenomegaly Musculoskeletal: no cyanosis or clubbing, extremities motor strength 5/5 Skin: LUE ecchymosis about radial line site, no significant swelling, capillary refill intact Neurologic: PERRL, EOMI, accommodation nl, no face palsy, no dysarthria Results & Data Results & Data Vital Signs (Past 12 Hours) Vital Signs Temp Pulse Resp BP Pulse Ox 05/12/23 07:52 90 05/12/23 06:00 73 13 148/74 H 99 05/12/23 05:00 76 17 140/69 94 05/12/23 04:30 70 21 136/70 97 05/12/23 04:00 70 17 139/69 05/12/23 03:00 89 20 142/75 H 05/12/23 02:00 96 H 27 H 05/12/23 01:47 111 H 32 H 181/92 H 97 05/12/23 01:35 122 H 26 H 143/120 H 05/12/23 01:00 79 13 100/54 L 05/12/23 01:30 37.3 C 05/12/23 00:00 85 18 130/69 97 05/11/23 23:00 71 17 122/58 L 94 05/12/23 00:52 76 05/11/23 22:00 71 20 129/65 97 05/11/23 22:24 36.8 C Coding Level of Care Code 42337 SUB INP/OBS CARE 2/35MIN Diagnoses Pacemaker complications T82.9XXA Cardiac tamponade I31.4 Pericardial effusion I31.39 Dyslipidemia E78.5 GERD (gastroesophageal reflux disease) K21.9 Hypertension I10 Tachyarrhythmia R00.0 Paroxysmal atrial fibrillation I48.0
[2023-05-12] MEDS: LOPERAMIDE HCL 2 MG CAP PO PRN ×2 (09:07→16:21)
--- NOTE | 2023-05-12 10:51 | Cardiology Progress Note ---
Date of Service May 12, 2023 Assessment & Plan (1) Pericardial effusion: (2) Cardiac tamponade: (3) Pacemaker complications: (4) Paroxysmal atrial fibrillation: Plan 82-year-old female status post pacemaker insertion on 05/07/2023 presenting on 05/09/2023 with lead perforation and pericardial effusion, impending tamponade. Patient underwent pericardiocentesis with improved hemodynamics. Pericardial catheter still in place with modest drainage Pacemaker attempted to be revised with difficult anatomy and device and leads were removed Currently hemodynamically stable. Plan: Pericardial catheter removed today. Repeat echocardiogram for am Holding on colchicine due to difficulties with chronic diarrhea 05/12/2023 Clinically hemodynamically stable. No signs or symptoms of recurrent pericardial effusion echocardiogram stable Transient atrial fibrillation intermittently but treatment limited by bradycardia issue We will hold on anticoagulation until reevaluated post discharge on Friday Patient has scheduled appointment Dr Perez 05/16/2023 Plan ambulate and discharge today Admission and Anticipated Discharge Date Admission Date: May 09, 2023 Subjective Patient seen and examined, chart, medications, telemetry reviewed. Feels well this morning. Pleuritic pain resolved. No fevers or chills Has had transient runs of atrial fibrillation as well as frequent atrial ectopy on telemetry, Review of Systems Review of Systems: All systems reviewed & are unremarkable except as noted in Subjective Physical Exam Constitutional: no acute distress Eyes: PERRL, conjunctivae normal, anicteric sclerae ENMT: external ear and nose normal, oropharynx normal Neck: trachea midline, no thyromegaly Respiratory: Auscultation: lungs clear to auscultation bilaterally Cardiovascular: Rate/Rhythm: regular rate and regular rhythm Chest (Breasts): Chest: + pacemaker (Extraction incision healing well) Musculoskeletal: no cyanosis or clubbing, extremities motor strength 5/5 Results & Data Vital Signs (Past 12 Hours) Vital Signs Temp Pulse Resp BP Pulse Ox O2 Del Method 05/12/23 09:10 117/83 05/12/23 09:10 124 H 16 05/12/23 07:00 74 18 05/12/23 07:00 123/73 96 Room Air 05/12/23 10:04 36.8 C 05/12/23 07:52 90 05/12/23 06:00 73 13 148/74 H 99 05/12/23 05:00 76 17 140/69 94 05/12/23 04:30 70 21 136/70 97 05/12/23 04:00 70 17 139/69 05/12/23 03:00 89 20 142/75 H 05/12/23 02:00 96 H 27 H 05/12/23 01:47 111 H 32 H 181/92 H 97 05/12/23 01:35 122 H 26 H 143/120 H 05/12/23 01:00 79 13 100/54 L 05/12/23 01:30 37.3 C 05/12/23 00:00 85 18 130/69 97 05/11/23 23:00 71 17 122/58 L 94 05/12/23 00:52 76 Laboratory Results Laboratory Results - last 24 hr 05/12/23 05/12/23 04:15 04:15 WBC 4.58 L RBC 2.91 L Hgb 8.8 L Hct 25.6 L MCV 88.0 MCH 30.2 MCHC 34.4 RDW Std Deviation 44.6 RDW Coeff of [place] 13.9 Plt Count 179 MPV 9.4 Sodium 136 Potassium 4.1 Chloride 106 Carbon Dioxide 26 Anion Gap 4 BUN 26 H Creatinine 0.92 Est Cr Clr Drug Dosing 41.0 Est GFR ( Amer) 67.2 Est GFR (Non-Af Amer) 58.0 BUN/Creatinine Ratio 28.3 H Glucose 105 H Calcium 8.0 L Phosphorus 2.1 L Magnesium 2.5 H
--- NOTE | 2023-05-12 13:01 | Electrocardiogram Report ---
Test Reason : Blood Pressure : / mmHG Vent. Rate : 069 BPM Atrial Rate : 072 BPM P-R Int : 000 ms QRS Dur : 086 ms QT Int : 418 ms P-R-T Axes : 000 033 054 degrees QTc Int : 447 ms Sinus rhythm Normal ECG When compared with ECG of 11-MAY-2023 05:25, No significant change Confirmed by Jony Graves ([id number] on 05/12/2023 1:01:22 PM Referred By: REFERRED SELF Confirmed By:Jony Graves
--- NOTE | 2023-05-12 15:36 | Discharge Summary ---
Date of Service May 12, 2023 Admission HPI Per Admitting Provider 82-year-old female presented to the ED today with complaints of chest pain with radiation to her back. Notes associated shortness of breath and lightheadedness. She did have a pacemaker placed on 05/07 for sick sinus syndrome. Chest CTA indicated moderate pericardial effusion with a possible lead rupture in the atrium. There was questionable tamponade physiology noted on the echo for which she was taken emergently to the [facility] [facility]. She underwent a pericardiocentesis and lead revision with reposition. Postprocedure an echo was repeated with improved EF and no tamponade. Effusion gradually decreasing in size. Initial ECHO demonstrated large right lateral, apical, and anterior pericardial effusion. She is status post 400 mL bloody drainage. Postprocedure echo with EF 40 to 45%. Dr. Perez aware of patient in ICU and recommends continuation evaluation of pericardial drain. PMH includes: pAF (takes Eliquis), HTN, HLD, history of vertigo and TIA Pt AAO x3 and able to have full meaningful conversation. She states that she does feel better than she did when she arrived today. She has a normal sinus rhythm and does have an A-line postprocedure with appropriate maps. She is on room air and appears in no apparent distress. Patient will be admitted for further evaluation and management. Please see A/P for further details. Admission Exam Per Admitting Provider Neuro: AAOx4, PERRLA, no aphagia, memory changes, CNII-XII grossly intact HEENT: head normocephalic, moist mucus membranes CV: S1/S2, (-) M/G/R, (-) edema, cap refill < 3 seconds Resp: Lungs CTA in all torres. On RA GI: Abdomen S/NT/ND, Ax4 bowel sounds, (-) CVA tenderness Musculoskeletal: 5/5 B/L UE strength, 5/5 B/L LE strength. No gait disturbance Skin: (-) rashes , (-) erythema. Psych: euthymic mood Principal Diagnosis Pericardial effusion/ Hemopericardium (complication of ppm), cardiac tamponade Discharge Exam General: elderly thin F in NAD HEENT: head normocephalic, moist mucus membranes CV: S1/S2, (-) M/G/R, (-) edema,+pericard. drain Resp: Lungs CTA, On RA GI: Abdomen S/NT/ND, Ax4 bowel sounds Musculoskeletal: no LE edema, moves extremities Neuro: awake, alert, oriented, answers appropriately, no facial asymmetry, spee ch fluent, moves extremities Skin: (-) rashes , (-) erythema. Psych: euthymic mood Discharge Data Allergies Allergy/AdvReac Type Severity Reaction Status Date / Time amoxicillin Allergy Mild Rash Verified 05/07/23 11:33 bacitracin Allergy Mild RASH Verified 05/07/23 11:33 neomycin Allergy Mild RASH Verified 05/07/23 11:33 polymyxin B Allergy Mild RASH Verified 05/07/23 11:33 sulfamethoxazole Allergy Mild rash Verified 05/07/23 11:33 trimethoprim Allergy Mild rash Verified 05/07/23 11:33 Bactrim Allergy Unknown rash Verified 03/17/18 10:42 aspirin [From Aggrenox] Allergy Unknown Verified 05/07/23 11:33 dipyridamole [From Aggrenox] Allergy Unknown Verified 05/07/23 11:33 cyclobenzaprine AdvReac Severe sedation Verified 05/07/23 11:33 [From Flexeril] Consultations 05/09/23 14:39 ED Decision to Admit Stat 05/09/23 19:35 Consult [employer] Routine 05/09/23 19:40 Consult Cardiology Routine Procedures Performed Operation Date: 05/09/23 14:30 Actual Procedures p Pericardiocentesis Initial - DO gricelda Montaño Pacer Removal - DO gricelda Montaño Venogram, Unilateral - Candie Perez DO Ordered Studies 05/09/23 11:27 CT angio chest dissec wo/w con Stat IMPRESSION: 1. Normal CT angiogram of the thoracic aorta. 2. Cardiomegaly with an implanted 2-lead cardiac pacemaker as above. 3. Moderate volume of hemopericardium, which is new from the 12/30/[address] The right atrial appendage lead closely approximates/may extend through the myocardial wall and into the pericardial space. Myocardial perforation is not excluded. 4. Subcutaneous gas and soft tissue induration is seen in the left lower neck/chest wall or in the pacemaker generator. This is likely related to the recent implantation. No contrast fluid collection is seen. 5. There is no airspace consolidation or pleural effusion. 6. There are numerous (greater than 10) groundglass nodules scattered throughout both lungs which measure up to 6 mm. These are pathologically indeterminant and should be followed as per the Fleischner criteria. See below. 7. There is no evidence of pulmonary embolus in the main, lobar, or segmental pulmonary arteries. 05/09/23 14:45 EP Lab Images for PACS ONCE 05/09/23 16:00 CL Cath Imgs for PACS use only Routine Hospital Course (1) Cardiac tamponade: (2) Pericardial effusion: (3) Hypertension: (4) Dyslipidemia: Plan 82-year-old female presented to the ED today with complaints of chest pain with radiation to her back. Notes associated shortness of breath and lightheadedness. She did have a pacemaker placed on 05/07 for sick sinus syndrome. Chest CTA indicated moderate pericardial effusion with a possible lead rupture in the atrium. There was questionable tamponade physiology noted on the echo for which she was taken emergently to the [employer] [facility]. She underwent a pericardiocentesis and lead revision with reposition. Postprocedure an echo was repeated with improved EF and no tamponade. Effusion gradually decreasing in size. Initial ECHO demonstrated large right lateral, apical, and anterior pericardial effusion. She is status post 400 mL bloody drainage. Postprocedure echo with EF 40 to 45%. Dr. Perez aware of patient in ICU and recommends continuation evaluation of pericardial drain.PMH includes: pAF (takes Eliquis), HTN, HLD, history of vertigo and history of TIA. No leukocytosis, mild LUIS with creatinine 1.33. Initial troponin 207 trending down 176; will follow. Cardiac tamponade: Pericardial effusion: Recent pacer insertion s/p SSS: s/p pericardiocentesis and lead extraction: Pacer placed originally by Dr. Perez on 05/07 Chest CTA indicated moderate pericardial effusion with a possible lead rupture in the atrium and underwent pericardiocentesis and lead revision with reposition Post procedure ECHO EF 40-45%; no tamponade. No leukocytosis Troponin 207--> 176; likely due to pericardial effusion Effusion gradually decreasing in size Currently in ICU for further management. Cardiology following closely and discussed with (05/10) plan for repeat echo and possibly pericard. drain removal. 05/11 - drain removed. Pt is feeling well, denies any chest pain. Cont. to closely monitor. 05/12 Pt continues to do well, repeat echo obtained. Discussed w/ cardiology and plan to DC home today w/ close cardiology follow up. Cont. to hold eliquis for now until further instructed by cardiology. LUIS: Creatinine 1.33; baseline 1.15-1.2 Hold nephrotoxic agents Cr back to baseline pAF: Chronic stable Takes Eliquis; hold for now -> hold on DC. Pt to be instructed by cardiology about when to restart the med. HTN: Chronic stable Takes lisinopril/hydrochlorothiazide, held while hospitalized - monitor BP as outpt Dyslipidemia: Chronic stable Takes simvastatin; continue Total Time Total Time Spent Total Time Spent (In Minutes): 40 Discharge Plan Discharge Items Patient Disposition: Home - Self-Care Reason For Visit: HEMOPERICARDIUM A COMPLICATION OF PACEMAKER FLACO Discharge Diagnosis: Pericardial effusion/ Hemopericardium (complication of ppm), cardiac tamponade Condition on Discharge: Fair Activity: Per Instructions section Non-emergency contact: Primary Care Provider and Advertising Consultant Call non-emergency contact if: you have any medication questions and your symptoms worsen Follow-up/Referrals: Michele Goss MD [Primary Care Provider] - Diet: Heart Healthy Addtl Attending Provider Instructions: Follow up with cardiology and your primary care doctor. Do not take your Eliquis for now. You will be contacted from cardiology office tomorrow about when you should restart it. For now, do not take your hydrochlorothiazide. You can restart it in next 2-3 days. If you are able to monitor your blood pressure, check it and write down your numbers. Discuss your numbers with willow machine operator or primary care doctor. Follow up with willow machine operator - Dr. Perez on 05/16/2023. You should follow up with your primary care doctor within next week. Pending Studies at Discharge: No Stand-Alone Forms: [employer], Smoking Cessation Medications and DC Order Prescriptions: Continued levothyroxine 50 mcg Tablet See Rx Instructions .ROUTE .COMPLEX Rx Instructions: take 2 tablets by mouth on sundays,tuesdays & . take 1 tablet on all other days. take at least 30 min prior to breakfast or other medidations simvastatin 20 mg Tablet 20 mg PO HS ondansetron 4 mg Tablet,Disintegrating 4 mg PO Q8 PRN (Reason: Nausea) cholecalciferol (vitamin D3) [Vitamin D3] 1,000 unit Capsule 1,000 unit PO DAILY multivitamin Tablet 1 tab PO DAILY lisinopril-hydrochlorothiazide 10-12.5 mg tablet 1 tab PO DAILY Eliquis 5 mg tablet 5 mg PO BID Probiotic 10 billion cell Capsule 10,000 mmu cells PO DAILY Discharge Orders: Discharge Order (Routine); Ordered 05/12/23 Ordered By: Christophe Alvarez Admission Data Admit Date/Time: 05/09/23 19:35 Attending Provider: Christophe Alvarez Admit Provider: Sandhya Babcock Primary Care Provider: Michele Goss Other Providers: Sandhya Babcock ; Shaw Muniz ; Angel Lewis
--- NOTE | 2023-05-22 11:56 | Coding Query ---
CODING QUERY To promote full compliance with coding requirements relating to patient care, provider participation is requested in all cases of surgical coder uncertainty. Please assist us with the question(s) below: Coding Question(s): Necrotizing Pneumonia was documented in the record and on Discharge Summary, and as of the Discharge Summary. It is not clear if the patient was treated for Necrotizing Pneumonia in addition to the possible bacterial pneumonia, or if it was ruled-out/not treated. Please specify below, in your clinical opinion, regarding Necrotizing Pneumonia: ( ) Necrotizing Pneumonia was treated during this admission, in addition to possible bacterial pneumonia ( ) Necrotizing Pneumonia was Not treated during this admission or was ruled- out ( ) Other: Please Specify Physician's Response(s): Thank you Zarina Zee Principal Diagnosis: "that condition established after study, to be chiefly responsible for occasioning the admission of the patient to the hospital for care." Co-Existing Principal Diagnosis: "when two or more diagnoses equally meet the criteria for principal diagnosis as determined by the circumstances of admission, diagnostic work up, and/or therapy provided, and the Alphabetic Index, Tabular List, or another coding guideline does not provide sequencing direction, any one of the diagnoses may be sequenced first." "When the physician has documented what appears to be a current diagnosis in the body of the record, but has not included the diagnosis in the final diagnostic statement, the physician should be asked whether the diagnosis should be added." (Source [facility]oding [facility] 2 QTR90. p3-4) ARVEN
== END 2023-05-12 16:42 | disposition home or self-care (01) | DRG 261 ==
LOC: ED 11:04 → ASU 14:28 → SUATTDRO 15:17 → 1E 15:17